=== PATIENT | male | born 1965 | race Caucasian/White ===

== ENCOUNTER 2017-01-16 10:30 | Emergency (ER) | payer MEDICARE, MEDICAID ==
[2017-01-16 12:01] LABS: Comments Flag Yes; Hematocrit 38 % (42-52); Hemoglobin 12.9 g/dl (14.0-18.0); Mean Corpuscular HGB Conc 34 g/dl (31-36); Mean Corpuscular Hemoglobin 31 pg (27-31); Mean Corpuscular Volume 91 fL (80-94); Mean Platelet Volume 7 um3 (7.4-10.4); Red Blood Count 4.19 10^6/ul (4.0-5.4); Red Cell Distribution Width 12 % (10.5-15); White Blood Count 25.2 10^3/ul (3.5-10.8)
[2017-01-16 12:02] LABS: Add Diff/Slide Review? Slide Review Added
[2017-01-16 12:16] LABS: Albumin 3.6 g/dL (3.2-5.2); Calcium 9.2 mg/dL (8.6-10.3); EGFR African American 175.9 (>60); EGFR Non-African American 136.8 (>60); Globulin 2.9 g/dL (2-4); Potassium 4.3 mmol/L (3.5-5.0); Total Bilirubin 0.6 mg/dL (0.2-1.0); Total Protein 6.5 g/dL (6.4-8.9)
--- NOTE | 2017-01-16 12:54 | RAD ---
INDICATION: Intracranial injury. History of shunt catheters . Congenital hydrocephalus COMPARISON: CT brain September 29, 2011 TECHNIQUE: Noncontrast axial source images were acquired from the skull base to the vertex. FINDINGS: Ventricles/sulci: The ventricles and cisterns are unchanged. 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 Left ventricular shunt catheters are unchanged. Brain parenchyma: There is no acute focal parenchymal finding, evidence of intracranial mass, or intracranial mass effect. Intracranial hemorrhage:None. Extra-axial spaces: There are no abnormal extra axial fluid collections or evidence of extra-axial mass. Calvarium: There is no calvarial fracture or other calvarial abnormality. Scalp: There is no evidence of scalp or extracalvarial soft tissue abnormality. Paranasal sinuses/mastoid: The paranasal sinuses and mastoid air cells are clear. Other: None. IMPRESSION: No acute intracranial findings. 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
[2017-01-16 13:22] LABS: Erythrocyte Sed Rate 60 mm/Hr (0-20)
[2017-01-16 14:42] LABS: Urine Bacteria 1+ (Absent); Urine Bilirubin Negative (Negative); Urine Glucose Negative (Negative); Urine Nitrite Positive (Negative)
[2017-01-16 15:55] VITALS: BP 102/66
[2017-01-16] MEDS ORDERED: Sulfamethox/Trimethoprim DS 800/160* TAB PO ONE ×2 (15:55)
--- NOTE | 2017-01-16 17:04 | ED ---
Neurological HPI - HPI Summary HPI Summary: Patient presents to the ED after falling, hitting his head and sustaining a fall and injury to the right side of the head. Patient lives in a assisted at [facility] and was getting out of the van on the way to work and sustained a fall which was thought to be from dizziness. The fall was witnessed by staff. Staff notes that the patient has difficulty with spacial recognition and is discombobulated at baseline, often reaching out for doors and missing the handles and missing objects, but today was much worse. Staff who is present at bedside, states he reached for a door and was much more "off than usual, and became unsteady on his feet, fell backwards striking his right side of the head. Denies LOC, confusion, N/V, memory loss. Notes to blurry vision in the right eye, but states this was present prior to the accident. Patient is a poor historian and per staff will "remember some things, but gets confused on others, specifically 'time'". PMHx includes hydrocephalus with double shunt placement as a child in 1980. He has had no issues with the shunts since placement. Neurosurgeon from [place]. Hx of seizures and is seen by Dr. Palmer and Dr. Campos. He is stable on Lamictal and Vimpat without missing any doses. Staff takes care of medication distribution. He also takes loperamide and maalox as needed for constipation and GERD symptoms. He has been otherwise healthy and denies SOB, chest pain, urinary symptoms, back pain, JEFFERSON, neck pain or stiffness or photophobia. There is no open breaks in the skin, open lesions or obvious signs of deformity of the head. Staff and mother are present at bedside. - History of Current Complaint Chief Complaint: EDHeadInjury Stated Complaint: FALL, HEADPAIN Time Seen by Provider: 01/16/17 10:37 Hx Obtained From: Patient Onset/Duration: Sudden Onset Onset Severity: Mild Current Severity: Mild Seizure Severity: Mild Pain Intensity: 0 Pain Scale Used: 0-10 Numeric Character: Dizzy, Visual Changes Syncope Context: Witnessed, Loss of Consciousness: No Alleviating: Rest, Lying Down Associated Signs and Symptoms: Positive: Unsteady Gait, Visual Changes TPA Considered: No Related Hx: Pseudoseizures - Allergy/Home Medications Allergies/Adverse Reactions: Allergies Allergy/AdvReac Type Severity Reaction Status Date / Time adhesive tape Allergy Intermediate redness, Uncoded 01/16/17 10:45 itching Home Medications: Home Medications Acetaminophen TAB* [Tylenol TAB*] 650 mg PO Q4H PRN 01/16/17 [History Confirmed 01/16/17] Al Hydrox/Mg Hydrox/Simet LIQ* [Maalox Plus*] 30 ml PO Q4H PRN 01/16/17 [ History Confirmed 01/16/17] Bacitracin OINTMENT* 1 applic TOPICAL BID PRN 01/16/17 [History Confirmed ] Cranberry (Vaccinium Macrocarp [Cranberry] 400 mg PO BID 01/16/17 [History Confirmed 01/16/17] Hydrocortisone (Rectal) [Proctozone-Hc] 2.5 % WA TID PRN 01/16/17 [History Confirmed 01/16/17] Hydrocortisone 1% CREAM* [Hytone Cream 1%*] 1 applic TOPICAL TID PRN 01/16/17 [ History Confirmed 01/16/17] Ibuprofen TAB* [Advil TAB*] 600 mg PO TID PRN 01/16/17 [History Confirmed ] Lacosamide TAB* [Vimpat TAB*] 200 mg PO BID MDD 200 mg 01/16/17 [History Confirmed 01/16/17] Loperamide HCl [Imodium A-D] 20 ml PO DAILY PRN 01/16/17 [History Confirmed 12/25] Miconazole TOPICAL CREAM 2%* [Monistat 2%*] 1 applic TOPICAL DAILY 01/16/17 [ History Confirmed 01/16/17] Mineral Oil Light (Topical) [Mineral Oil Light] 3 drop BOTH EARS DAILY PRN 01/16 [History Confirmed 01/16/17] Ped Multivitamins W/Fl & Iron [Hdxn-LO-Kkpj/Iron] 1 chw PO DAILY 01/16/17 [ History Confirmed 01/16/17] Phenylephrine HCl (Oral) [Nasal Decongestant] 10 mg PO Q4HR PRN 01/16/17 [ History Confirmed 01/16/17] guaiFENesin LIQ* [Robitussin*] 10 ml PO Q6HR PRN 01/16/17 [History Confirmed 12/25] PMH/Surg Hx/FS Hx/Imm Hx Previously Healthy: Yes - shunt placement Endocrine/Hematology History: Denies: Hx Anticoagulant Therapy, Hx Blood Disorders, Hx Diabetes, Hx Thyroid Disease Cardiovascular History: Denies: Hx Hypertension Respiratory History: Reports: Other Respiratory Problems/Disorders - SHUNT Denies: Hx Asthma, Hx Chronic Obstructive Pulmonary Disease (COPD) GI History: Reports: Other GI Disorders - SHUNT Denies: Hx Ulcer History: Reports: Other Problems/Disorders - Neurogenic Bladder Musculoskeletal History: Reports: Hx Osteoporosis, Hx Scoliosis Denies: Hx Arthritis, Hx Back Problems, Hx Bursitis Sensory History: Reports: Hx Contacts or Glasses Opthamlomology History: Reports: Hx Contacts or Glasses Neurological History: Reports: Hx Developmental Delay, Hx Seizures Comment Only: Other Neuro Impairments/Disorders - SHUNTS X2, Hydrocephalis Psychiatric History: Reports: Hx Anxiety - Surgical History Surgery Procedure, Year, and Place: BILATERAL HIP REPLACEMENTS Hx Anesthesia Reactions: No - Immunization History Hx Pertussis Vaccination: No Immunizations Up to Date: Unable to Obtain/Confirm Infectious Disease History: No Infectious Disease History: Denies: Hx Hepatitis, Hx Human Immunodeficiency Virus (HIV), Traveled Outside the [place] in Last 30 Days - Family History Known Family History: Positive: Cardiac Disease - father - Social History Occupation: Employed Part-time Lives: Senior Living Alcohol Use: None Hx Substance Use: Yes Substance Use Type: Reports: Prescribed Substance Use Comment - Amount & Last Used: seizure meds Hx Tobacco Use: No Smoking Status (MU): Never Smoked Tobacco Review of Systems Constitutional: Negative Negative: Fever, Chills, Fatigue Positive: Blurred Vision - right eye only Cardiovascular: Negative Respiratory: Negative Negative: Abdominal Pain, Vomiting, Diarrhea Positive: no symptoms reported, see HPI Musculoskeletal: Negative Positive: Headache - none currently, Weakness Psychological: Normal All Other Systems Reviewed And Are Negative: Yes Physical Exam Triage Information Reviewed: Yes Vital Signs On Initial Exam: Initial Vitals Temp Pulse Resp BP Pulse Ox 99.3 F 100 18 139/80 98 01/16/17 10:31 01/16/17 10:31 01/16/17 10:31 01/16/17 10:31 01/16/17 10:31 Vital Signs Reviewed: Yes Appearance: Positive: Well-Appearing, Well-Nourished Skin: Positive: Warm, Skin Color Reflects Adequate Perfusion Head/Face: Positive: Normal Head/Face Inspection Eyes: Positive: Conjunctiva Clear Neck: Positive: Supple, No Lymphadenopathy Respiratory/Lung Sounds: Positive: Clear to Auscultation, Breath Sounds Present Cardiovascular: Positive: Normal, RRR, Pulses are Symmetrical in both Upper and Lower Extremities Musculoskeletal: Positive: Other - weakness at baseline Neurological: Positive: Sensory/Motor Intact, Alert, Oriented to Person Place, Time, Reflexes Intact, Speech Normal Psychiatric: Positive: Normal AVPU Assessment: Alert - Rama Coma Scale Best Eye Response: 4 - Spontaneous Best Motor Response: 6 - Obeys Commands Best Verbal Response: 5 - Oriented Coma Scale Total: 15 Diagnostics - Vital Signs Vital Signs Temp Pulse Resp BP Pulse Ox 01/16/17 16:29 99.0 F 88 18 102/66 01/16/17 15:30 88 102/66 96 01/16/17 15:00 91 116/70 97 01/16/17 14:30 94 118/67 96 01/16/17 14:00 90 120/71 97 01/16/17 13:30 90 114/69 97 01/16/17 13:00 92 110/75 99 01/16/17 12:57 92 120/77 98 01/16/17 12:00 89 115/76 97 01/16/17 11:30 98 131/89 99 01/16/17 11:00 90 118/79 99 01/16/17 10:43 97 99 01/16/17 10:42 99.3 F 96 16 131/88 100 01/16/17 10:41 131/88 01/16/17 10:31 99.3 F 100 18 139/80 98 - Laboratory Lab Results: Lab Results 01/16/17 01/16/17 01/16/17 Range/Units 11:50 11:50 11:50 WBC 25.2 H (3.5-10.8) 10^3/ul RBC 4.19 (4.0-5.4) 10^6/ul Hgb 12.9 L (14.0-18.0) g/dl Hct 38 L (42-52) % MCV 91 (80-94) fL MCH 31 (27-31) pg MCHC 34 (31-36) g/dl RDW 12 (10.5-15) % Plt Count 184 (150-450) 10^3/ul MPV 7 L (7.4-10.4) um3 Neut % (Auto) 84.4 H (38-83) % Lymph % (Auto) 5.8 L (25-47) % [place] % (Auto) 9.0 (1-9) % Eos % (Auto) 0.4 (0-6) % Baso % (Auto) 0.4 (0-2) % Absolute Neuts (auto) 21.2 H (1.5-7.7) 10^3/ul Absolute Lymphs (auto) 1.5 (1.0-4.8) 10^3/ul Absolute Monos (auto) 2.3 H (0-0.8) 10^3/ul Absolute Eos (auto) 0.1 (0-0.6) 10^3/ul Absolute Basos (auto) 0.1 (0-0.2) 10^3/ul Absolute Nucleated RBC 0 10^3/ul Nucleated RBC % 0 ESR 60 H (0-20) mm/Hr D-Dimer, Quantitative 243 H (Less Than 230) ng/mL Sodium 132 L (133-145) mmol/L Potassium 4.3 (3.5-5.0) mmol/L Chloride 98 L (101-111) mmol/L Carbon Dioxide 30 (22-32) mmol/L Anion Gap 4 (2-11) mmol/L BUN 13 (6-24) mg/dL Creatinine 0.62 L (0.67-1.17) mg/dL Est GFR ( Amer) 175.9 (>60) Est GFR (Non-Af Amer) 136.8 (>60) BUN/Creatinine Ratio 21.0 H (8-20) Glucose 104 H (70-100) mg/dL Calcium 9.2 (8.6-10.3) mg/dL Total Bilirubin 0.60 (0.2-1.0) mg/dL AST 22 (13-39) U/L ALT 34 (7-52) U/L Alkaline Phosphatase 88 (34-104) U/L Total Protein 6.5 (6.4-8.9) g/dL Albumin 3.6 (3.2-5.2) g/dL Globulin 2.9 (2-4) g/dL Albumin/Globulin Ratio 1.2 (1-3) Urine Color Urine Appearance Urine pH (5-9) Ur Specific [place] (1.010-1.030) Urine Protein (Negative) Urine Ketones (Negative) Urine Blood (Negative) Urine Nitrate (Negative) Urine Bilirubin (Negative) Urine Urobilinogen (Negative) Ur Leukocyte Esterase (Negative) Urine WBC (Auto) (Absent) Urine RBC (Auto) (Absent) Ur Squamous Epith Cells (Absent) Urine Bacteria (Absent) Urine Glucose (Negative) Urine Ascorbic Acid (Negative) 01/16/17 Range/Units 14:17 WBC (3.5-10.8) 10^3/ul RBC (4.0-5.4) 10^6/ul Hgb (14.0-18.0) g/dl Hct (42-52) % MCV (80-94) fL MCH (27-31) pg MCHC (31-36) g/dl RDW (10.5-15) % Plt Count (150-450) 10^3/ul MPV (7.4-10.4) um3 Neut % (Auto) (38-83) % Lymph % (Auto) (25-47) % [place] % (Auto) (1-9) % Eos % (Auto) (0-6) % Baso % (Auto) (0-2) % Absolute Neuts (auto) (1.5-7.7) 10^3/ul Absolute Lymphs (auto) (1.0-4.8) 10^3/ul Absolute Monos (auto) (0-0.8) 10^3/ul Absolute Eos (auto) (0-0.6) 10^3/ul Absolute Basos (auto) (0-0.2) 10^3/ul Absolute Nucleated RBC 10^3/ul Nucleated RBC % ESR (0-20) mm/Hr D-Dimer, Quantitative (Less Than 230) ng/mL Sodium (133-145) mmol/L Potassium (3.5-5.0) mmol/L Chloride (101-111) mmol/L Carbon Dioxide (22-32) mmol/L Anion Gap (2-11) mmol/L BUN (6-24) mg/dL Creatinine (0.67-1.17) mg/dL Est GFR ( Amer) (>60) Est GFR (Non-Af Amer) (>60) BUN/Creatinine Ratio (8-20) Glucose (70-100) mg/dL Calcium (8.6-10.3) mg/dL Total Bilirubin (0.2-1.0) mg/dL AST (13-39) U/L ALT (7-52) U/L Alkaline Phosphatase (34-104) U/L Total Protein (6.4-8.9) g/dL Albumin (3.2-5.2) g/dL Globulin (2-4) g/dL Albumin/Globulin Ratio (1-3) Urine Color Ashley Urine Appearance Cloudy Urine pH 6.0 (5-9) Ur Specific [place] 1.021 (1.010-1.030) Urine Protein 1+(30 mg/dl) H (Negative) Urine Ketones Trace H (Negative) Urine Blood 2+ H (Negative) Urine Nitrate Positive H (Negative) Urine Bilirubin Negative (Negative) Urine Urobilinogen Negative (Negative) Ur Leukocyte Esterase 3+ H (Negative) Urine WBC (Auto) 3+(>20/hpf) H (Absent) Urine RBC (Auto) 3+(>10/hpf) H (Absent) Ur Squamous Epith Cells Present H (Absent) Urine Bacteria 1+ H (Absent) Urine Glucose Negative (Negative) Urine Ascorbic Acid * H (Negative) Result Diagrams: 01/16/17 11:50 01/16/17 11:50 Lab Statement: Any lab studies that have been ordered have been reviewed, and results considered in the medical decision making process. Course/Dx - Course Course Of Treatment: UA shows +3 leuks and WBC. Denies any urinary symptoms. VS stable at 99.0; 18 HR; 102/66. Denies taking any ibuprofen or tylenol. He is not on immunoboosting medications including steroids and has not been using his loperamide recently which would account for a higher level of lamictal and vimpat which could cause an elevated WBC. Likely, WBC is d/t UTI. He does not feel symptoms, but has a history of such and all times were found incidentally. Mother and staff and patient all made aware of results and Dr. Wiley and I' s discussion. We will dispense 1 bactrim here in the ED for UTI, and 1 tab for tomorrow morning d/t the pharmacy not delivering until tmw afternoon. Complete neuro exam completed and WNL. Normal head/face inspection with no cephalohematoma. There are bilateral scars post-auricular from shunt placement and one occipitally. No open lesions identified. Reflexes intact. Visual acuity intact and at baseline. No obvious confusion or memory loss per patient and family, but he is often confused at baseline. Patient oriented to person, place and date. No obvious deformity or signs of trauma. Finger to nose normal for patient, unable to obtain heel to toe d/t leg braces and weakness, which is also normal for patient. Speech normal, facial symmetry, normal gait. Patient denies LOC. ROM, strength, reflexes in upper and lower extremity intact, sensation intact. GCS score >15 at 2h post injury. No suspected open or depressed skull fx, no sign of basal skull fx, no hemotympanum, raccoon eyes, Battles sign, CSF kate-/rhinorrhea, no emesis after injury. CT brain obtained d /t high risk with shunts. WBC elevated at 25,000 with left shift. Patient feels well other than slight dizziness x 2 weeks. IMPRESSION: No acute intracranial findings. 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 Spoke with Dr. Wiley who agrees to come and evaluate patient. Discussed differentials including shunt infection, UTI, viral syndrome , new onset dizziness or seizure activity. Discussed with Dr. Oliveira in the ED who agrees to defer to Dr. Wiley and to assess for possible shunt infection. Patient is instructed to follow up with Dr. Palmer next week. Vimpat and Lamictal levels sent out and will await final. Urine culture will be sent and will await sensitivities. Patient is OK for discharge. Referrals are sent. - Differential Dx Differential Diagnoses Neuro: Positive: Concussion, Drug Toxicity, Encephalitis , Other - UTI, shunt infection, other infection, high WBC - Diagnoses Provider Diagnoses: Head trauma, UTI (urinary tract infection) Discharge - Discharge Plan Condition: Stable Disposition: HOME Prescriptions: Sulfamethox/Trimethoprim DS* [Bactrim DS 800/160 TAB*] 1 tab PO BID #8 tab MDD 2 Patient Education Materials: Urinary Tract Infection in Men (ED), Head Injury ( ED) Forms: *Gen. Provider Communication Referrals: Lynsey Palmer MD [Medical Doctor] - 1 Week (High WBC, CT bran for head injury) Neftaly Wagner MD [Primary Care Provider] - 1 Week (Follow up for repeat blood work / UA) Additional Instructions: Dx. Urinary Tract Infection Drink plenty of fluids. Supplement with cranberry or hunter juice. You may also take an over the counter cranberry supplement. If you have any questions about this, you may ask your pharmacist. If your symptoms have not improved in 1-2 days, if you develop fever, sweats or chills, please go to your emergency room, or call your PCP. Antibiotics were prescribed to you. Please take as directed. Supplement with over the counter probiotics on the opposite schedule of your antibiotic to prevent secondary infections. Do not take together as they may counteract each other. Bactrim has been prescribed to you Take 1 tab twice daily until gone (morning and evening) This can be added to your morning and night time medications regimen Follow up with Dr. Palmer next week
--- NOTE | 2017-01-16 20:54 | CONS ---
CC: Dr. 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 He walks chronically with a walker and is chronically clumsy. However, he was reaching for a button on the wall today and was more uncoordinated than usual. He also fell today. He will occasionally fall, but this in combination of an odd reach for him plus a feeling of being dizzy and it is hard to get a history from him whether this is really lightheadedness or room spinning, but in any event, this was a change. They brought him in. He has been in good general health and generally without any fever, cough, or bowel or bladder complaints. He has occasional seizures, but his control has been good for him recently on his Lamictal and Vimpat. There has been no dosage change. He is on a bowel regimen, but that has not changed recently and no change in bowel. Of note, he has a longstanding shunt in, not replaced since 1980, but he has had shunt infections in the past prior to that. His neurosurgeon, who he has not seen for a long time, has been up in [place]. He has had no recent seizures. MEDICATIONS: At home, include: 1. Lamotrigine 150 in the morning and 200 at night. 2. Vimpat 200 b.i.d. 3. He is on Colace 100 mg daily. 4. He is also on Imodium, but he has not needed that recently. 5. He is on a decongestant p.r.n., but has not needed. 6. He takes calcium carbonate 1 tab b.i.d. 7. Cranberry extract 400 mg b.i.d. ALLERGIES: He is allergic to ADHESIVE TAPE. FAMILY HISTORY: Father who has had cardiac disease, but rest of the family history is noncontributory. REVIEW OF SYSTEMS: Negative in all 14 spheres, other than as above. He has had surgeries including bilateral hip replacements and his TRACK SUPERVISOR shunt, and he has had his global delay. He has a history of osteoporosis and scoliosis and has a history of neurogenic bladder. PHYSICAL EXAM: Temperature 99.3, pulse 90, respirations 16, blood pressure 118/ 67. He was alert and oriented. He was a poor historian and had some significant dysarthria; his mother and the care worker who were present stated this is typical for him. Cranial nerves II through XII, head marked hydrocephalus is unchanged. Had dysconjugate gaze, has right exotropia, which is unchanged for him. Pupils were 2+ and equal. Facies are symmetric. He had bilateral braces and some spasticity. He was clumsy in both hands. There is mild dysmetria, but this apparently is unchanged for him. Reflexes were 2 and equal in the arms, 1 in the legs. Chest: Clear. Cardiovascular: Regular rate and rhythm. Abdomen: Soft with positive bowel sounds. DIAGNOSTIC STUDIES/LAB DATA: Reviewed his CT scan, which showed significant Dandy- Walker with TRACK SUPERVISOR and it looks like posterior shunt as well. This was unchanged from his prior scan dating back to 2011. I compared both films and I agree with the radiologist. He had of note, a white count of 25.2, hematocrit of 38, platelets 184. D- dimer of 243. CMP has a sodium of 132, creatinine 0.6, glucose 104. Otherwise , CMP was normal. Vimpat levels and lamotrigine levels are being sent after I spoke to the ER doctor. His UA shows 1+ bacteria with 3+ white count, 3+ red count, and 3+ leuk esterase. ASSESSMENT AND PLAN: The most likely thing is that Porter has a urinary tract infection with elevated white count and with plus leuk esterase and urine WBC and it is possible that this infection has exacerbated some of his underlying symptoms. It is possible that there has been some fluctuation for unclear reasons of his anticonvulsant levels and that is being checked. Much less likely this could be a shunt infection. So, if he does not have a urinary tract infection and his levels are unchanged next week, the mother will touch base with Dr. Palmer to make sure that he does not need any further evaluation for something like shunt infection, although I think that this is unlikely. We will discuss the UA with the nurse practitioner here that this might be a urinary tract infection especially given the neurogenic bladder. Thank you for sharing his case. [id number]/[facility] #: [id number] BERTA
--- NOTE | 2017-01-19 08:53 | PN ---
Progress Note - Progress Note Date of Service: 01/16/17 Note: Diagnosed with UTI and placed on bactrim. Sensitivity results show e. coli is susceptible to bactrim. no further action necessary at this time.
[2017-01-20 11:32] LABS: Lacosamide 12.2 mcg/mL (1.0 - 10.0)
== END 2017-01-16 16:31 | disposition home or self-care (01) ==
LOC: ED 10:30
DX: S09.90XA Unspecified injury of head, initial encounter (principal); R51 Headache; H53.8 Other visual disturbances; N39.0 Urinary tract infection, site not specified; W19.XXXA Unspecified fall, initial encounter; Y93.9 Activity, unspecified; Y92.9 Unspecified place or not applicable
CPT/HCPCS: 36415; 70450; 80053; 80175; 80299; 81003; 81015; 85025; 85379; 85652; 87077; 87086; 87186; 99284; A9270-GY

== ENCOUNTER 2017-12-15 16:05 | Emergency (ER) | payer MEDICARE, MEDICAID ==
--- OUTSIDE RECORDS SUMMARY | 2017-12-15 16:14 | XMS REPORT ---
:1965 External Reference #:[id number] Author Organization Count Includes [facility] Address [address] [place] [id number] Phone [phone] Care Team Providers Name Role Phone Neftaly Wagner M.D. 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 Primary Care Physician Unavailable Payers Type Date Identification Numbers Payment Provider Subscriber Medicare Primary Policy Number: [id number] Medicare - Bswny Umd Kulwant Gallagher PayID: [id number] [address] [place] [address] [facility] Part B Policy Number: [id number] Medicaid After Private Kulwant Gallagher Group Name: 1 2 Type ins co. code [address] PayID: [id number] [place] [address] Problems Description No Information Family History Date Family Member(s) Problem(s) Comments Father Hypertension Father GERD Mother Osteoarthritis Mother Thyroid Disease Mother Hypercholesterolemia Mother Depression Siblings .None Paternal Grandfather CAD Paternal Grandmother Hypertension Paternal Grandmother Stroke Maternal Grandfather CAD Maternal Grandfather Psoriasis Maternal Grandmother CAD Maternal Grandmother Hypertension Maternal Grandmother Stroke Social History Type Date Description Comments Lives With Lives at [employer]. Works at [employer]. Cigarette Use Never Smoked Cigarettes Exercise Type/Frequency Exercises regularly, using exercises at home, and PT rowing machine 2x per week. sessions 2x/wk. Regular PT Allergies, Adverse Reactions, Alerts Date Description Reaction Status Severity Comments 02/06/2005 Adhesives active on tape. Medications Medication Date Status Form Strength Qnty SIG Indications Ordering Provider Bactrim DS 12/01/ Active Tablets 800-160mg 10tabs take 1 N39.0 Jessica 2018 tablet by Magda mouth every , 12 hours for 5 days Tab-A-Danielle/Iro 10/14/ Active Tablets 30tabs Take 1 Neftaly boyer 2018 Tablet By Kristy Mouth Every M.D. Day (Supplement) Shoe Lift On 02/09/ Active Q03.9 Neftaly Left Shoe 2017 Yadira Wagner Shoe 02/09/ Active Q03.9 Neftaly Modification 2017 Kristy, Left Genie MMarcos Colace 100MG 07/29/ Active 30unit Take One Neftaly Cap 2016 s Capsule By Kristy Mouth Every M.D. Day (Hemorrhoids ) Calcium 600+D 10/11/ Active Tablets 600-400mg- 180tab 1 po bid 733.09 Neftaly 2014 Unit s Yadira Wagner Cranberry 01/29/ Active Capsule 400mg 60caps Take 1 N31.9 Neftaly 2005 400 MG Capsule Kristy, (400MG) By M.DJewell Mouth 2 Times A Day (Supplement) Lamictal / Active Tablets 100mg 1 1/2 po Beth, 0000 qam, 2 po MD Eliezer qhs Vimpat 00/ Active Tablets 200mg 1 po bid [place], 0000 MD Eliezer Vimpat / Active Tablets 50mg 1 po qhs Unknown 0000 Multivitamin / Active Unknown With Iron 0000 Multivitamin 08/13/ Hx 90unit One by mouth Neftaly With Iron 2018 - s daily. Kristy, 08/27/ MJewellDJewell 2018 Bactrim DS 07/10/ Hx Tablets 800-160mg 20tabs take 1 Jessica 2017 - tablet by Magda 08/27/ mouth twice MD 2018 daily for 10 days Pyridium 07/10/ Hx Tablets 200mg 6tabs 1 tablet Jessica 2017 - three times Magda 08/27/ a day with MD 2018 food x 2 days Shoe 02/09/ Hx Q03.9 Neftaly Modification 2016 - Kristy, To Right Shoe 02/09/ M.DJewell 2017 Shoe Lift On 06/02/ Hx Q03.9 Neftaly Left Shoe 2016 - Kristy 07/28/ M.D. 2017 Gait 04/15/ Hx for Q03.9 Neftaly Evaluation 2015 - appropriate Wagner, 07/28/ assistive M.DJewell 2017 devices R26.89 Proctosol HC 11/02/2015 - Hx Cream 2.5% 30units Apply To Affected Neftaly 08/27/2017 Areas 3 Times A Wagner, Day as Needed M.D. After 15 Minutes Sitzbath (Hemorrhoids) Hydrocortisone-A 11/02/2015 - Hx Cream 1% 28units Apply Small Neftaly monisha 08/27/2017 Amount To Wagner, Buttocks 3 Times M.D. A Day as Needed (Anti-Inflammator y) Shoe 07/26/2015 - Hx as directed Q03 Neftaly Modification To 07/28/2016 .9 Kristy Right Sholucho May Shoe Lift On 03/15/2015 - Hx Q03 Neftaly Left Shoe 07/26/2015 .9 Yadira Wagner Colace 09/26/2014 - Hx Capsules 100mg 30caps take one capsule Neftaly 07/30/2015 by mouth every Wagenr, day (hemorrhoids) M.D. Afo 05/18/2014 - Hx repair or replace Q03 Neftaly 07/28/2016 as needed .9 Yadira Wagner R26.89 Calcium 04/05/2014 Hx Tablets [id number] 60tabs Take One Neftaly Carbonate-Vitamin - Tablet By Kristy, D 08/27/2017 Mouth 2 Times M.D. A Day (Supplement) Sulfacetamide 02/09/2014 Hx Solution 10% 15ml 2 drops 37 Shawnti Sodium - right eye 3. R. 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 A Day as Needed After 15 Minutes Sitzbath (Hemorrhoids) Calcium/Vitamin D 09/06/2013 Hx Tablets [id number] 60tabs take one 73 Neftaly - tablet by Naty. Kristy, 10/11/2014 mouth 2 times 09 M.D. a day (supplement) To Whom It May 07/07/2013 Hx Discontinue Neftaly Concern - lidoderm Kristy, 07/12/2013 patch M.D. Hydrocortisone-Ruy 05/06/2013 Hx Cream 1% 28units Apply Small Neftaly e - Amount To Wagner, 12/20/2014 Buttocks 3 M.D. Times A Day as Needed (Antifungal) Walker Adjustment 03/10/2013 Hx 74 Neftaly With Physical - 2. Kristy, Therapist 06/20/2013 3 M.D. Phenylephrine 10MG 02/22/2013 Hx Tablet 30tabs Take One Neftaly - Tablet By Kristy, 08/27/2017 Mouth Every 4 M.D. Hours as Needed For Congestion Polyvitamin/Iron 02/22/2013 Hx Chewtabs 30units chew 1 tablet Neftaly - by mouth Kristy, 08/27/2017 every day M.D. (supplement) Colace 100MG Cap 02/08/2013 Hx 30units take one Neftaly - capsule by Kristy, 09/26/2014 mouth every M.D. day (hemorrhoids) Calcium 600 + D 09/08/2012 Hx Tablets [id number] 60tabs 1 po bid 73 Neftaly - 3. Kristy, 09/06/2013 09 M.D. Multivitamins With 09/01/2012 Hx Tablets 30tabs 1 Chew tab po Neftaly Iron - qd Kristy, 07/28/2016 M.D. Calcium + D 08/17/2012 Hx Tablets [id number] 90tabs 1 po qd 73 Neftaly - 3. Kristy, 09/08/2012 09 M.D. Lidoderm 06/01/2012 Hx Patches 5% 30units apply to Neftaly - affected area Wagner, 06/20/2013 for 12hrs a M.D. day as needed Phenylephrine HCL 03/25/2012 Hx Tablets 10mg 30tabs 1 po q 4 hrs Neftaly - prn Kristy, 06/20/2013 M.D. Divalproex Sodium 12/11/2011 Hx Tablets 250mg 2 po qam, 3 Unknown ER - ER 24HR qhs 09/14/2012 Sole Elevation On 10/14/2011 Hx 1Pair elevate my Neftaly Pair Of New Shoes - sole. Kristy, 10/19/2011 M.D. Acetaminophen 08/12/2011 Hx Tablets 325mg 120tabs one po q 4 hr Neftaly - prn for pain Kristy, 08/27/2017 or fever >101 M.D. Rosa-Lanta 08/12/2011 Hx Suspensio [id number] 473ml 30 cc q 4 hr Neftaly Packer for minor Wagner, 08/27/2017 stomachlucho May upset Lamictal 03/25/2011 Hx Tablets 200mg 1 qhs Beth - , 03/11/2012 MD Eliezer Ibuprofen 05/16/2010 Hx Tablets 600mg 30tabs 1 tid prn 92 Shawnti - pain, take 0 R. 06/20/2013 with food Storm, SOFTWARE [employer] EXECUTIVE-C Ergocalciferol 04/21/2010 Hx Tablets 50,000Units 12tabs 1 po qweek x Neftaly Tablets - 12 weeks Kristy, 08/05/2010 Yadira Shoe Lift On Left 03/08/2010 Hx 1units 73 Neftaly Shoe - 3. Kristy, 06/20/2013 09 Yadira Trileptal 02/22/2009 Hx Tablets 300mg 3 bid [place] - , 03/11/2012 MD Eliezer Colace 02/22/2008 Hx Capsules 100mg 30caps 1 PO qd Neftaly Wagner, 02/08/2013 Yadira Physical Therapy 02/22/2008 Hx for gait and Neftaly - balance Kristy, 05/22/2008 MMarcos Calcium 600+D 11/25/2007 Hx Tablets 60tabs 1 po bid 73 Neftaly - 3. Kristy, 08/17/2012 09 Yadira Calcium Carbonate 11/23/2007 Hx Tablets 600mg/200mg 60tabs 1 po bid 73 Neftaly With Vitamin D - 3. Kristy, 11/25/2007 09 MMarcos Salicylic Acid 10/28/2007 Hx 40% 30units apply to jacki Higginbotham Plasters - qd. Kristy, 03/24/2011 Yadira Rolator Walker 10/28/2007 Hx 1units Wheeled Neftaly Stallings With Kristy, 12/16/2010 Hand Brakes ChagoDJewell And Seat Calcium 600 + D 07/27/2007 Hx Tablets 60tabs 1 po bid 73 Neftaly - 3. Kristy, 11/23/2007 09 Yadira Audiologic 06/08/2007 Hx every 2 years Neftaly Evaluation - as needed Kristy, 12/16/2010 Yadira Proctocream-HC 05/13/2007 Hx Cream 2.5% 1Tube apply to 45 Neftaly - affected area 5. Wagner, 12/20/2014 tid and prn 3 M.D. Multivitamin/Iron 03/12/2007 Hx Chewtabs 30units 1 qd Neftaly - Kristy, 09/01/2012 M.D. 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 Yadira Afo Hepatitis B 10/14/2006 Hx Injection 10mcg/ML 1 ml im x 1 Neftaly Vaccine Adult - Wagner, 2006 M.Sincere Physician Orders 06/10/2006 Hx replace Neftaly - straps on Wagner, 07/10/2006 braces Yadira Medical Equipment 12/12/2005 Hx posterior Neftaly - control Wagner, 12/17/2005 walker with Yadira folding seat and swivel, heavy duty wheels Physical Therapy 11/25/2005 Hx gait Neftaly - assrashid and Wagner, 02/10/2006 strengthening M.Sincere . Physical Therapy 11/17/2005 Hx PT russell Higginbotham - evaluation Wagner, 11/22/2005 and treatment M.D. Fosamax 10/28/2005 Hx Tablets 70mg 12tabs one q week on 73 Neftaly - empty stomach 3. Wagner, 06/21/2013 do not lie 09 M.D. down for at least 1/2 hr after taking Miconazole Nitrate 10/24/2005 Hx Cream 2% 45G apply to Neftaly - affected area Wagner, 08/27/2017 bid prn M.D. Levaquin 09/14/2005 Hx Tablets 250mg 11tabs two po first Mansi - day then 1 po e P. 02/10/2006 qd x 9 days Blegen, MJewellDJewell Zithromax 08/03/2005 Hx Tablets 6tabs 2 on day one, Neftaly - then one qd Wagner, 11/01/2005 x4 days M.D. Cephalexin HCL 07/14/2005 Hx Tablets 500mg 28tabs one tab po Graham - q6h x 7 days J. 07/22/2005 Yadira Schulz [facility] [employer] 05/24/2005 Hx 1units Neftaly Wagner, 05/29/2005 M.D. Shoe Lift 01/11/2005 Hx 1units left foot. Neftaly Wagner, 11/27/2007 M.D. Loratadine 10/01/2004 Hx Tablets 10mg 30tabs 1 po qd Neftaly Wagner, 02/22/2008 M.D. Sports Cream 03/01/2004 Hx 1units generic for Neftaly - 'raymond-damon' Kristy, 04/10/2004 M.D. apply to back prn Ibuprofen 02/12/2004 Hx Tablets 600mg 120tabs one po tid to Jaimee - qid prn pain K.W. 05/16/2010 Antoinette boyer M.D. Physical Therapy 02/06/2004 Hx evaluate and 72 Neftaly - treat low 4. Kristy, 03/07/2004 back pain 2 M.D. Excuse From Work 02/06/2004 Hx out of work 72 Neftaly - until 4. Kristy, 03/07/2004 02/15/04. 2 M.D. Note 06/02/2003 Hx 1units unilateral Neftaly caicedo - Kristy, 06/03/2003 left M.D. Tegretol Hx 200mg three tabs Unknown - qam 01/08/2006 two tabs at lunch three tabs qpm Actonel Hx 35mg 4units take one Neftaly - tablet weekly Wagner, 10/28/2005 M.D. Calcium With Vit.D Hx Tablets 600mg 60tabs one bid 73 Neftaly - 3. Kristy, 07/27/2007 09 M.D. Multi-Vit Hx Tablets 30tabs one po qd Trinity - A. 03/12/2007 Pearl CamposPJewellC Jewell Lamictal Hx Tablets 125mg at hs Unknown - 02/22/2008 Depakote ER Hx Tablets 500mg 60tabs 1 QHS Unknown - ER 24HR 02/22/2009 Hydrocodone/Acetam Hx Tablets 5-325mg 30tabs 1 po q4hrs Neftaly alicia - dinoran pain Kristy, 06/20/2013 Yadira Immunizations CPT Code Status Date Vaccine Lot # [id number] Given 07/29/2016 Tdap (Adacel) [id number] Given 03/06/2016 Influenza Virus Vaccine, Quadrivalent, 3 Yr > Quad, Preserv Free 85575 Given 02/08/2015 Influenza Virus Vaccine, Quadrivalent, 3 Yr > Quad, Preserv Free 39739 Given 01/31/2014 Influenza Virus Vaccine, Quadrivalent, 3 Yr > Quad, Preserv Free 48946 Given 02/19/2012 Influenza Vaccine-Preservative Free 3 Yrs And Above 71885 Given 02/06/2011 Influenza Vaccine-Preservative Free 3 Yrs And Above 57246 Given 02/08/2010 Influenza Vaccine-Preservative Free 3 Yrs And Above 27440 Given 02/10/2006 Tdap (Adacel) [id number] 54758 Given 02/10/2006 Influenza Virus Vaccine, 3 Yrs And Above [id number] 54953 Given 03/25/2005 Influenza Virus Vaccine, 3 Yrs And Above 48654 Given 11/04/1995 Tetanus Vital Signs Date Vital Result Comment 12/01/2017 Weight 167.00 lb Weight in kg's 75.751 BP Systolic 112 mmHg BP Diastolic 78 mmHg Heart Rate 72 /min Body Temperature 97.0 F Respiratory Rate 18 /min 08/27/2017 Weight 167.00 lb Weight in kg's 75.751 BP Systolic 126 mmHg BP Diastolic 80 mmHg Heart Rate 68 /min Body Temperature 98.2 F Respiratory Rate 18 /min Height 67 inches 5'7" BMI (Body Mass Index) 26.2 kg/m2 O2 % BldC Oximetry 96 % 07/10/2017 Weight 172.00 lb Weight in kg's 78.019 BP Systolic 128 mmHg BP Diastolic 74 mmHg Heart Rate 80 /min Body Temperature 98.7 F Respiratory Rate 16 /min O2 % BldC Oximetry 98 % 01/28/2017 Weight 167.00 lb Weight in kg's 75.751 BP Systolic 112 mmHg BP Diastolic 68 mmHg Heart Rate 84 /min Body Temperature 97.7 F Respiratory Rate 16 /min 07/29/2016 Weight 166.00 lb Weight in kg's 75.298 BP Systolic 112 mmHg BP Diastolic 82 mmHg Heart Rate 91 /min Body Temperature 96.4 F Respiratory Rate 16 /min Height 67.5 inches 5'7.50" BMI (Body Mass Index) 25.6 kg/m2 O2 % BldC Oximetry 98 % 06/20/2016 Weight 167.00 lb Weight in kg's 75.751 BP Systolic 123 mmHg BP Diastolic 70 mmHg Heart Rate 72 /min 04/15/2016 BP Systolic 104 mmHg BP Diastolic 82 mmHg Heart Rate 66 /min Body Temperature 95.8 F Respiratory Rate 16 /min O2 % BldC Oximetry 99 % 04/01/2016 Weight 164.56 lb Weight in kg's 74.646 BP Systolic 122 mmHg BP Diastolic 76 mmHg Heart Rate 80 /min Body Temperature 98.9 F Respiratory Rate 18 /min 01/02/2016 Weight 165.00 lb Weight in kg's 74.844 BP Systolic 100 mmHg BP Diastolic 72 mmHg Heart Rate 68 /min Body Temperature 98.6 F Respiratory Rate 20 /min 06/27/2015 Weight 163.00 lb Weight in kg's 73.937 BP Systolic 96 mmHg BP Diastolic 61 mmHg Heart Rate 84 /min Height 67 inches 5'7" BMI (Body Mass Index) 25.5 kg/m2 12/21/2014 Weight 165.00 lb Weight in kg's 74.844 BP Systolic 120 mmHg BP Diastolic 70 mmHg Heart Rate 72 /min 07/17/2014 Weight 167.00 lb Weight in kg's 75.751 BP Systolic 130 mmHg BP Diastolic 68 mmHg Heart Rate 74 /min Body Temperature 97.0 F 06/20/2014 Weight 165.00 lb Weight in kg's 74.844 BP Systolic 90 mmHg BP Diastolic 70 mmHg Heart Rate 75 /min 05/24/2014 Weight 167.00 lb Weight in kg's 75.751 BP Systolic 114 mmHg BP Diastolic 70 mmHg Heart Rate 76 /min Body Temperature 97.7 F 02/09/2014 Weight 166.00 lb Weight in kg's 75.298 BP Systolic 114 mmHg BP Diastolic 70 mmHg Heart Rate 84 /min 01/10/2014 Weight 166.00 lb Weight in kg's 75.298 BP Systolic 104 mmHg BP Diastolic 72 mmHg Heart Rate 84 /min 06/23/2013 Weight 163.00 lb Weight in kg's 73.937 BP Systolic 116 mmHg BP Diastolic 70 mmHg Heart Rate 72 /min Body Temperature 97.5 F 03/11/2013 Weight 160.00 lb Weight in kg's 72.576 BP Systolic 112 mmHg BP Diastolic 70 mmHg Heart Rate 100 /min 06/01/2012 Weight 161.00 lb Weight in kg's 73.030 BP Systolic 126 mmHg BP Diastolic 86 mmHg Heart Rate 76 /min Body Temperature 98.7 F 03/25/2012 Weight 155.00 lb Weight in kg's 70.308 BP Systolic 108 mmHg BP Diastolic 62 mmHg Heart Rate 64 /min Height 66 inches 5'6" BMI (Body Mass Index) 25.0 kg/m2 11/05/2011 Weight 154.00 lb Weight in kg's 69.854 BP Systolic 128 mmHg BP Diastolic 90 mmHg Heart Rate 100 /min Body Temperature 98.7 F 10/16/2011 Weight 157.00 lb Weight in kg's 71.215 BP Systolic 128 mmHg BP Diastolic 80 mmHg Heart Rate 72 /min Body Temperature 97.9 F 03/25/2011 Weight 156.00 lb Weight in kg's 70.762 BP Systolic 130 mmHg BP Diastolic 80 mmHg Heart Rate 84 /min Height 66 inches 5'6" BMI (Body Mass Index) 25.2 kg/m2 05/16/2010 Weight 167.00 lb Weight in kg's 75.751 BP Systolic 140 mmHg BP Diastolic 80 mmHg Heart Rate 96 /min Body Temperature 99.1 F 03/22/2010 Weight 152.00 lb Weight in kg's 68.947 BP Systolic 146 mmHg BP Diastolic 74 mmHg Heart Rate 104 /min Height 67 inches 5'7" BMI (Body Mass Index) 23.8 kg/m2 02/22/2009 Weight 164.00 lb Weight in kg's 74.390 BP Systolic 124 mmHg BP Diastolic 62 mmHg Heart Rate 80 /min Height 67 inches 5'7" BMI (Body Mass Index) 25.7 kg/m2 02/22/2008 Weight 157.00 lb Weight in kg's 71.215 BP Systolic 124 mmHg BP Diastolic 70 mmHg Heart Rate 78 /min Respiratory Rate 18 /min Height 67 inches 5'7" BMI (Body Mass Index) 24.6 kg/m2 10/28/2007 Weight 150.00 lb Weight in kg's 68.040 BP Systolic 116 mmHg BP Diastolic 78 mmHg Heart Rate 72 /min Height 67 inches 5'7" BMI (Body Mass Index) 23.5 kg/m2 05/13/2007 Weight 156.00 lb Weight in kg's 70.762 BP Systolic 106 mmHg BP Diastolic 62 mmHg Heart Rate 74 /min Height 67 inches 5'7" BMI (Body Mass Index) 24.4 kg/m2 03/11/2007 Weight 146.00 lb Weight in kg's 66.226 BP Systolic 112 mmHg BP Diastolic 72 mmHg Heart Rate 77 /min Height 67 inches 5'7" BMI (Body Mass Index) 22.9 kg/m2 02/16/2007 Weight 148.00 lb Weight in kg's 67.133 BP Systolic 126 mmHg BP Diastolic 78 mmHg Heart Rate 82 /min Body Temperature 97.8 F Height 67 inches 5'7" BMI (Body Mass Index) 23.2 kg/m2 02/12/2006 Weight 152.00 lb Weight in kg's 68.947 BP Systolic 118 mmHg BP Diastolic 86 mmHg Heart Rate 72 /min Height 67 inches 5'7" BMI (Body Mass Index) 23.8 kg/m2 02/10/2006 Weight 149.00 lb Weight in kg's 67.586 BP Systolic 120 mmHg BP Diastolic 70 mmHg Heart Rate 72 /min Height 67 inches 5'7" BMI (Body Mass Index) 23.3 kg/m2 01/27/2006 Weight 154.00 lb Weight in kg's 69.854 BP Systolic 130 mmHg BP Diastolic 70 mmHg Heart Rate 68 /min Height 67 inches 5'7" BMI (Body Mass Index) 24.1 kg/m2 01/06/2006 Height 67 inches 5'7" 01/06/2006 Weight 154.00 lb Weight in kg's 69.854 BP Systolic 144 mmHg BP Diastolic 90 mmHg Heart Rate 92 /min Body Temperature 98.2 F Height 67 inches 5'7" BMI (Body Mass Index) 24.1 kg/m2 12/29/2005 Weight 155.00 lb Weight in kg's 70.308 BP Systolic 118 mmHg BP Diastolic 70 mmHg Heart Rate 80 /min Height 67 inches 5'7" BMI (Body Mass Index) 24.3 kg/m2 12/17/2005 Weight 158.00 lb Weight in kg's 71.669 BP Systolic 132 mmHg BP Diastolic 68 mmHg Heart Rate 72 /min Height 67 inches 5'7" BMI (Body Mass Index) 24.7 kg/m2 08/28/2005 Weight 161.00 lb Weight in kg's 73.030 BP Systolic 128 mmHg BP Diastolic 76 mmHg Body Temperature 97.8 F Height 67 inches 5'7" BMI (Body Mass Index) 25.2 kg/m2 08/05/2005 Weight 161.00 lb Weight in kg's 73.030 BP Systolic 124 mmHg BP Diastolic 80 mmHg Heart Rate 72 /min Body Temperature 97.4 F Height 67 inches 5'7" BMI (Body Mass Index) 25.2 kg/m2 O2 % BldC Oximetry 97 % 07/14/2005 Weight 164.00 lb Weight in kg's 74.390 BP Systolic 118 mmHg BP Diastolic 78 mmHg Heart Rate 80 /min Height 67 inches 5'7" BMI (Body Mass Index) 25.7 kg/m2 02/06/2005 Weight 168.00 lb Weight in kg's 76.205 BP Systolic 122 mmHg BP Diastolic 80 mmHg Heart Rate 76 /min Respiratory Rate 18 /min Height 67 inches 5'7" BMI (Body Mass Index) 26.3 kg/m2 06/21/2004 Weight 155.00 lb Weight in kg's 70.308 BP Systolic 130 mmHg BP Diastolic 80 mmHg Body Temperature 97.8 F Height 67 inches 5'7" BMI (Body Mass Index) 24.3 kg/m2 03/29/2004 Weight 160.00 lb Weight in kg's 72.576 BP Systolic 130 mmHg BP Diastolic 90 mmHg Height 67 inches 5'7" BMI (Body Mass Index) 25.1 kg/m2 02/06/2004 Weight 164.00 lb Weight in kg's 74.390 BP Systolic 140 mmHg BP Diastolic 86 mmHg Heart Rate 82 /min Respiratory Rate 18 /min Height 67 inches 5'7" BMI (Body Mass Index) 25.7 kg/m2 05/17/2003 Weight 172.00 lb Weight in kg's 78.019 BP Systolic 120 mmHg BP Diastolic 80 mmHg 02/14/2003 Weight 173.00 lb Weight in kg's 78.473 BP Systolic 114 mmHg BP Diastolic 70 mmHg Heart Rate 68 /min Respiratory Rate 16 /min Results Test Date Test Result H/L Range Note Urine DIP 12/01/2017 Leukocytes neg Neg Urine Nitrites neg Neg Urobilinogen norm Norm Total Protein, Urine neg Neg Urine pH 5.0 5-6 Urine Blood 250 High Neg Specific Chaplin 1.010 1.01-1.02 Urine Ketones neg Neg Urine Bilirubin neg Neg Urine Glucose norm Norm Laboratory test 09/16/2017 Vitamin D Total 26.2 ng/mL 20-50 finding 25(Oh) Laboratory test 07/10/2017 Urine Culture SEE RESULT BELOW 1, 2, 3 finding Urine DIP 07/10/2017 Leukocytes ++ Neg Urine Nitrites pos Neg Urobilinogen normal Norm Total Protein, Urine neg Neg Urine pH 7 High 5-6 Urine Blood about 250 Neg Specific Chaplin 1.010 1.01-1.02 Urine Ketones neg Neg Urine Bilirubin neg Neg Urine Glucose normal Norm CBC Auto Diff 01/28/2017 White Blood Count 8.9 10^3/uL 3.5-10.8 Red Blood Count 4.63 10^6/uL 4.0-5.4 Hemoglobin 14.0 g/dL 14.0-18.0 Hematocrit 43 % 42-52 Mean Corpuscular Volume 92 fL 80-94 Mean Corpuscular Hemoglobin 30 pg 27-31 Mean Corpuscular HGB Conc 33 g/dL 31-36 Red Cell Distribution Width 13 % 10.5-15 Platelet Count 451 10^3/uL High 150-450 Mean Platelet Volume 7 um3 Low 7.4-10.4 Abs Neutrophils 5.1 10^3/uL 1.5-7.7 Abs Lymphocytes 2.6 10^3/uL 1.0-4.8 Abs Monocytes 1.0 10^3/uL High 0-0.8 Abs Eosinophils 0.2 10^3/uL 0-0.6 Abs Basophils 0.1 10^3/uL 0-0.2 Abs Nucleated RBC 0.01 10^3/uL Granulocyte % 57.5 % 38-83 Lymphocyte % 28.8 % 25-47 Monocyte % 11.0 % High 1-9 Eosinophil % 1.9 % 0-6 Basophil % 0.8 % 0-2 Nucleated Red Blood Cells % 0.1 Laboratory test finding 01/16/2017 Erythrocyte Sed Rate 60 mm/Hr High 0- 20 Lamotrigine (Lamictal) 13.0 g/mL 2.5 - 15.0 4 Lacosamide 12.2 g/mL 1.0 - 10.0 5 CBC Auto Diff 01/16/2017 White Blood Count 25.2 10^3/uL High 3.5-10.8 Red Blood Count 4.19 10^6/uL 4.0-5.4 Hemoglobin 12.9 g/dL Low 14.0-18.0 Hematocrit 38 % Low 42-52 Mean Corpuscular Volume 91 fL 80-94 Mean Corpuscular Hemoglobin 31 pg 27-31 Mean Corpuscular HGB Conc 34 g/dL 31-36 Red Cell Distribution Width 12 % 10.5-15 Platelet Count 184 10^3/uL 150-450 Mean Platelet Volume 7 um3 Low 7.4-10.4 Abs Neutrophils 21.2 10^3/uL High 1.5-7.7 Abs Lymphocytes 1.5 10^3/uL 1.0-4.8 Abs Monocytes 2.3 10^3/uL High 0-0.8 Abs Eosinophils 0.1 10^3/uL 0-0.6 Abs Basophils 0.1 10^3/uL 0-0.2 Abs Nucleated RBC 0 10^3/uL Granulocyte % 84.4 % High 38-83 Lymphocyte % 5.8 % Low 25-47 Monocyte % 9.0 % 1-9 Eosinophil % 0.4 % 0-6 Basophil % 0.4 % 0-2 Nucleated Red Blood Cells % 0 Urinalysis Profile 01/16/2017 Urine Color Ashley Urine Appearance Cloudy Urine Specific Chaplin 1.021 1.010-1.030 Urine pH 6.0 5-9 Urine Urobilinogen Negative Negative Urine Ketones Trace Negative Urine Protein 1+(30 mg/dL) Negative Urine Leukocytes 3+ Negative Urine Blood 2+ Negative * * Negative 6 Urine Nitrite Positive Negative Urine Bilirubin Negative Negative Urine Glucose Negative Negative Urine White Blood Cell 3+(>20/hpf) Absent Urine Red Blood Cell 3+(>10/hpf) Absent Urine Bacteria 1+ Absent Urine Squamous Epithelial Cell Present Absent Laboratory test 01/16/2017 Urine Culture SEE RESULT 7 finding BELOW Laboratory test 01/16/2017 D Dimer Quantitative 243 ng/mL High Less Than 8 finding 230 Comp Metabolic 01/16/2017 Sodium 132 mmol/L Low 133-145 Panel Potassium 4.3 mmol/L 3.5-5.0 Chloride 98 mmol/L Low 101-111 Co2 Carbon Dioxide 30 mmol/L 22-32 Anion Gap 4 mmol/L 2-11 Glucose 104 mg/dL High 70-100 Blood Urea Nitrogen 13 mg/dL 6-24 Creatinine 0.62 mg/dL Low 0.67-1.17 BUN/Creatinine Ratio 21.0 High 8-20 Calcium 9.2 mg/dL 8.6-10.3 Total Protein 6.5 g/dL 6.4-8.9 Albumin 3.6 g/dL 3.2-5.2 Globulin 2.9 g/dL 2-4 Albumin/Globulin Ratio 1.2 1-3 Total Bilirubin 0.60 mg/dL 0.2-1.0 Alkaline Phosphatase 88 U/L 34-104 Alt 34 U/L 7-52 Ast 22 U/L 13-39 Egfr Non- 136.8 >60 Egfr 175.9 >60 9 Laboratory test finding 04/15/2016 Hemoglobin A1c (Glyco 5.3 % Less than 6.0 10 HGB) Urine DIP 01/30/2016 Leukocytes neg Neg Urine Nitrites neg Neg Urobilinogen neg Norm Total Protein, Urine neg Neg Urine pH 6 5-6 Urine Blood trace Neg Specific Chaplin 1.010 1.01-1.02 Urine Ketones neg Neg Urine Bilirubin neg Neg Urine Glucose neg Norm Urine DIP 01/08/2016 Leukocytes neg Neg Urine Nitrites neg Neg Urobilinogen norm Norm Total Protein, Urine neg Neg Urine pH 7 High 5-6 Urine Blood trace Neg Specific Chaplin 1.015 1.01-1.02 Urine Ketones neg Neg Urine Bilirubin neg Neg Urine Glucose norm Norm CBC Auto Diff 01/01/2016 White Blood Count 10.9 10^3/uL High 3.5-10.8 Red Blood Count 5.00 10^6/uL 4.0-5.4 Hemoglobin 15.2 g/dL 14.0-18.0 Hematocrit 46 % 42-52 Mean Corpuscular Volume 91 fL 80-94 Mean Corpuscular Hemoglobin 30 pg 27-31 Mean Corpuscular HGB Conc 33 g/dL 31-36 Red Cell Distribution Width 12 % 10.5-15 Platelet Count 246 10^3/uL 150-450 Mean Platelet Volume 8 um3 7.4-10.4 Abs Neutrophils 9.1 10^3/uL High 1.5-7.7 Abs Lymphocytes 0.9 10^3/uL Low 1.0-4.8 Abs Monocytes 0.9 10^3/uL High 0-0.8 Abs Eosinophils 0 10^3/uL 0-0.6 Abs Basophils 0 10^3/uL 0-0.2 Abs Nucleated RBC 0.01 10^3/uL Granulocyte % 83.1 % High 38-83 Lymphocyte % 8.5 % Low 25-47 Monocyte % 8.1 % 1-9 Eosinophil % 0.1 % 0-6 Basophil % 0.2 % 0-2 Nucleated Red Blood Cells % 0.1 Basic Metabolic Panel 01/01/2016 Sodium 134 mmol/L 133-145 Potassium 4.1 mmol/L 3.5-5.0 Chloride 100 mmol/L Low 101-111 Co2 Carbon Dioxide 27 mmol/L 22-32 Anion Gap 7 mmol/L 2-11 Glucose 119 mg/dL High 70-100 Blood Urea Nitrogen 8 mg/dL 6-24 Creatinine 0.68 mg/dL 0.67-1.17 BUN/Creatinine Ratio 11.8 8-20 Calcium 9.8 mg/dL 8.6-10.3 Egfr Non- 123.4 >60 Egfr 158.7 >60 11 Urinalysis Profile 01/01/2016 Urine Color Yellow Urine Appearance Clear Urine Specific [place] 1.016 1.010-1.030 Urine pH 8.0 5-9 Urine Urobilinogen Negative Negative Urine Ketones Trace Negative Urine Protein Negative Negative Urine Leukocytes Negative Negative Urine Blood 1+ Negative Urine Nitrite Negative Negative Urine Bilirubin Negative Negative Urine Glucose Negative Negative Urine White Blood Cell Trace(0-5/hpf) Absent Urine Red Blood Cell 3+(>10/hpf) Absent Urine Bacteria Absent Absent Basic Metabolic Panel 06/27/2015 Sodium 137 mmol/L 133-145 Potassium 4.4 mmol/L 3.5-5.0 Chloride 102 mmol/L 101-111 Co2 Carbon Dioxide 30 mmol/L 22-32 Anion Gap 5 mmol/L 2-11 Glucose 106 mg/dL High 70-100 Blood Urea Nitrogen 14 mg/dL 6-24 Creatinine 0.68 mg/dL 0.67-1.17 BUN/Creatinine Ratio 20.6 High 8-20 Calcium 9.4 mg/dL 8.6-10.3 Egfr Non- 123.9 >60 Egfr 159.4 >60 12 Liver Function Panel 06/27/2015 Total Protein 6.8 g/dL 6.4-8.9 Albumin 4.5 g/dL 3.2-5.2 Globulin 2.3 g/dL 2-4 Albumin/Globulin Ratio 2.0 1-3 Total Bilirubin 0.40 mg/dL 0.2-1.0 Direct Bilirubin 0.10 mg/dL 0.03-0.18 Indirect Bilirubin 0.3 mg/dL 0.3-1.0 Alkaline Phosphatase 76 U/L 34-104 Alt 15 U/L 7-52 Ast 14 U/L 13-39 CBC Auto Diff 06/27/2015 White Blood Count 6.2 10^3/uL 3.5-10.8 Red Blood Count 4.94 10^6/uL 4.0-5.4 Hemoglobin 15.1 g/dL 14.0-18.0 Hematocrit 46 % 42-52 Mean Corpuscular Volume 94 fL 80-94 Mean Corpuscular Hemoglobin 31 pg 27-31 Mean Corpuscular HGB Conc 33 g/dL 31-36 Red Cell Distribution Width 13 % 10.5-15 Platelet Count 249 10^3/uL 150-450 Mean Platelet Volume 9 um3 7.4-10.4 Abs Neutrophils 3.9 10^3/uL 1.5-7.7 Abs Lymphocytes 1.4 10^3/uL 1.0-4.8 Abs Monocytes 0.7 10^3/uL 0-0.8 Abs Eosinophils 0.1 10^3/uL 0-0.6 Abs Basophils 0 10^3/uL 0-0.2 Abs Nucleated RBC 0 10^3/uL Granulocyte % 63.4 % 38-83 Lymphocyte % 22.6 % Low 25-47 Monocyte % 12.1 % High 1-9 Eosinophil % 1.3 % 0-6 Basophil % 0.6 % 0-2 Nucleated Red Blood Cells % 0 Surgical Pathology 09/05/2014 S RUN DATE: <SEE NOTE> Urine Culture And 07/17/2014 Urine Culture (SEE NOTE) 14 Sensitivities Urine DIP 07/17/2014 Specific [place] 1.020 1.01-1.02 Urine pH 6 5-6 Leukocytes TRACE Neg Urine Nitrites NEG Neg Total Protein, Urine NEG Neg Urine Glucose NORM Norm Urine Ketones NEG Neg Urobilinogen NORM Norm Urine Bilirubin NEG Neg Urine Blood TRACE Neg Basic Metabolic Panel 06/20/2014 Sodium 135 mmol/L 133-145 15 Potassium 4.6 mmol/L 3.5-5.0 15 Chloride 101 mmol/L 101-111 15 Co2 Carbon Dioxide 27 mmol/L 22-32 15 Anion Gap 7 mmol/L 2-11 15 Glucose 92 mg/dL 70-100 15 Blood Urea Nitrogen 16 mg/dL 6-24 15 Creatinine 0.64 mg/dL Low 0.67-1.17 15 BUN/Creatinine Ratio 25.0 High 8-20 15 Calcium 9.9 mg/dL 8.6-10.3 15 Egfr Non- 133.5 >60 15 Egfr 171.7 >60 15, 16 Liver Function Panel 06/20/2014 Total Protein 7.3 g/dL 6.4-8.9 15 Albumin 4.8 g/dL 3.2-5.2 15 Globulin 2.5 g/dL 2-4 15 Albumin/Globulin Ratio 1.9 1-3 15 Total Bilirubin 0.40 mg/dL 0.2-1.0 15 Direct Bilirubin 0.10 mg/dL 0.03-0.18 15 Indirect Bilirubin 0.3 mg/dL 0.3-1.0 15 Alkaline Phosphatase 83 U/L 34-104 15 Alt 20 U/L 7-52 15 Ast 16 U/L 13-39 15 CBC Auto Diff 06/20/2014 White Blood Count 7.6 10^3/uL 4.8-10.8 15 Red Blood Count 4.83 10^6/uL 4.0-5.4 15 Hemoglobin 15.1 g/dL 14.0-18.0 15 Hematocrit 45 % 42-52 15 Mean Corpuscular Volume 93 fL 80-94 15 Mean Corpuscular Hemoglobin 31 pg 27-31 15 Mean Corpuscular HGB Conc 34 g/dL 31-36 15 Red Cell Distribution Width 13 % 10.5-15 15 Platelet Count 258 10^3/uL 150-450 15 Mean Platelet Volume 8 um3 7.4-10.4 15 Abs Neutrophils 5.4 10^3/uL 1.5-7.7 15 Abs Lymphocytes 1.2 10^3/uL 1.0-4.8 15 Abs Monocytes 0.8 10^3/uL 0-0.8 15 Abs Eosinophils 0.1 10^3/uL 0-0.6 15 Abs Basophils 0.1 10^3/uL 0-0.2 15 Abs Nucleated RBC 0.01 10^3/uL 15 Granulocyte % 71.0 % 38-83 15 Lymphocyte % 16.5 % Low 25-47 15 Monocyte % 10.1 % High 1-9 15 Eosinophil % 1.0 % 0-6 15 Basophil % 1.4 % 0-2 15 Nucleated Red Blood Cells % 0.1 15 Laboratory test finding 10/08/2013 Lamotrigine 10.2 g/mL 2.5 - 15.0 17 Lacosamide 4.2 g/mL 1.0 - 10.0 18 Urinalysis 03/10/2013 Urine Color Yellow Urine Appearance Clear Urine Specific [place] 1.010 1.010-1.030 Urine Esterase Negative Negative Urine Nitrate Negative Negative Urine Urobilinogen Negative E.U./dL Negative Urine Protein Negative mg/dL Negative Urine pH 7.0 5-9 Urine Blood Trace Negative Urine Ketones Negative mg/dL Negative Urine Bilirubin Negative Negative Urine Glucose Negative mg/dL Negative Urine Microscopic 03/10/2013 Urine WBC 1+ (<3 /hpf) None Seen Urine RBC None Seen None Seen Bacteria Urine 1+ None Seen Laboratory test finding 08/25/2012 Lamotrigine 8.9 g/mL 2.5 - 15.0 19 Laboratory test finding 05/11/2012 Lamotrigine 13.2 g/mL 2.5 - 15.0 20 Laboratory test finding 05/11/2012 Valproic Acid 84.0 g/mL 50.0-100.0 21 CBC No Diff 12/29/2011 White Blood Count 6.0 CUMM 4.8-10.8 Red Cell Count 4.46 CUMM Low 4.6-6.2 Hemoglobin 14.6 g/dL 14.0-18.0 Hematocrit 43 % 42-52 Mean Corpuscular Volume 96 um3 High 80-94 Mean Corpuscular Hemoglob 33 pg High 27-31 Mean Corpuscular HGB Cone 34 g/dL 32-36 Redcell Distribution WDTH 13 % 10.5-15 Platelet Count 168 CUMM 150-450 Mean Platelet Volume 7.9 um3 7.4-10.4 Liver Function Panel 12/29/2011 Total Protein 5.9 GM/DL Low 6.2-8.1 Albumin 3.8 GM/DL 3.6-5.4 Globulin 2.1 GM/DL 2-4 Albumin/Globulin Ratio 1.8 1-3 Bilirubin Total 0.6 mg/dL 0.4-1.5 22 Bilirubin Direct 0.1 mg/dL 0.1-0.5 Indirect Bilirubin 0.5 mg/dL 0.3-1.0 23 Alkaline Phosphatase 73 U/L 39-117 Alt (SGPT) 16 U/L Low 17-63 Ast (Sgot) 16 U/L 12-42 Basic Metabolic Panel 12/29/2011 Sodium 134 mmol/L Low 135-145 Potassium 4.6 mmol/L 3.5-5.0 Chloride 97 mmol/L Low 101-111 Co2 (Carbon Dioxide) 31.0 mmol/L 22-32 Anion Gap 6.0 mmol/L 2-11 24 Glucose 95 mg/dL 70-100 BUN 5 mg/dL Low 6-24 Creatinine 0.6 mg/dL 0.50-1.40 One Over Creatinine 1.66 BUN/Creatinine Ratio 8.3 8-20 Calcium 8.9 mg/dL 8.1-9.9 eGFR Non- 145.0 > 60 eGFR 186.5 > 60 25 Laboratory test finding 11/27/2011 Lamotrigine 9.0 g/mL 2.5 - 15.0 26 Trileptal (Oxcarbazepine) 19 g/mL 3 - 35 27 Urine Culture & Sensitivi 11/06/2011 M <SEE NOTE> 28 Urine DIP 11/06/2011 Leukocytes NEG Neg Urine Nitrites NEG Neg Urine pH 5 5-6 Total Protein, Urine TRACE Neg Urine Glucose RM Norm Urine Ketones NEG Neg Urobilinogen NORM Norm Urine Bilirubin NEG Neg Urine Blood 50 High Neg Specific [place] NA Low 1.01-1.02 Urine Culture & 08/20/2011 M <SEE NOTE> 29 Sensitivi Urinalysis 08/20/2011 Ua Color YELLOW Yellow Appearance-Urine CLEAR Clear Specific [place]-Ur 1.013 1.010-1.030 Esterase-Urine NEGATIVE Negative Nitrite NEGATIVE Negative [id number]-PFD NEGATIVE Negative Protein-Urine NEGATIVE Negative PH-Urine 7.5 5-9 Blood-Urine NEGATIVE Negative Ketones-Urine NEGATIVE Negative Bilirubin-Ur NEGATIVE Negative Glucose-Urine NEGATIVE Negative CBC Auto Diff 03/25/2011 White Blood Count 7.0 CUMM 4.8-10.8 Red Cell Count 4.30 CUMM Low 4.6-6.2 Hemoglobin 13.8 g/dL Low 14.0-18.0 Hematocrit 40 % Low 42-52 Mean Corpuscular Volume 93 um3 80-94 Mean Corpuscular Hemoglob 32 pg High 27-31 Mean Corpuscular HGB Cone 35 g/dL 32-36 Redcell Distribution WDTH 12 % 10.5-15 Platelet Count 258 CUMM 150-450 Mean Platelet Volume 7.7 um3 7.4-10.4 Gran % 63.1 % 38-83 Lymph % 23.9 % Low 25-47 Mononuclear % 10.7 % High 1-9 Eosinophil % 1.9 % 0-6 Basophil % 0.4 % 0-2 Abs Lymphs 1.7 1.0-4.8 Abs Mononuclear 0.8 0-0.8 Absolute Neutrophil Count 4.4 1.5-7.7 Abs Eosinophils 0.1 0-0.6 Abs Basophils 0 0-0.2 Comp Metabolic Panel 03/25/2011 Sodium 126 mmol/L Low 135-145 Potassium 4.6 mmol/L 3.5-5.0 Chloride 91 mmol/L Low 101-111 Co2 (Carbon Dioxide) 29.0 mmol/L 22-32 Anion Gap 6.0 mmol/L 2-11 30 Glucose 89 mg/dL 70-100 BUN 7 mg/dL 6-24 Creatinine 0.6 mg/dL 0.50-1.40 One Over Creatinine 1.66 BUN/Creatinine Ratio 11.7 8-20 Calcium 9.2 mg/dL 8.1-9.9 Total Protein 6.2 GM/DL 6.2-8.1 Albumin 4.3 GM/DL 3.6-5.4 Globulin 1.9 GM/DL Low 2-4 Albumin/Globulin Ratio 2.3 1-3 Bilirubin Total 0.6 mg/dL 0.4-1.5 31 Alkaline Phosphatase 87 U/L 39-117 Alt (SGPT) 19 U/L 17-63 Ast (Sgot) 20 U/L 12-42 eGFR Non- 145.7 > 60 eGFR 187.4 > 60 32 Vitamin D, 25 Hydroxy 07/24/2010 25-Hydroxy Vitamin D2 <4.0 ng/mL () 25-Hydroxy Vitamin D3 57 ng/mL () 25-Hydroxy Vitamin D Total 57 ng/mL () 33 Vitamin D, 25 Hydroxy 03/26/2010 25-Hydroxy Vitamin D2 4.1 ng/mL () 25-Hydroxy Vitamin D3 25 ng/mL () 25-Hydroxy Vitamin D Total 29 ng/mL () 34 Lipid Profile (Trig/Chol/HDL) 03/26/2010 Triglyceride 46 mg/dL 40-200 Cholesterol 173 mg/dL Less Than 200 35 High Density Lipoprotein 69 mg/dL High 40-60 36 Cholesterol/HDL Ratio 2.51 AVERAGE 1-4.97 Low Density Lipoprotein 95 mg/dL Less Than 100 37 Urine Culture Sensitivities 10/23/2009 Ciprofloxacin 1 38 Nitrofurantoin <=16 38 Gentamicin <=0.5 38 Levofloxacin 0.5 38 Linezolid 2 38 Oxacillin <=0.25 38 Rifampin <=0.5 38 Trimeth-Sulfa <=10 38 Tetracycline <=1 38 Tigecycline <=0.12 38 Vancomycin 1 38 Urine Culture 10/23/2009 Urine Culture STAPH HAEMOLYTIC 38, 39 Sensitivi Sensitivi <SEE NOTE> CBC With Electronic 01/30/2009 White Blood Count 6.4 CUMM 4.8-10.8 38 Diff Red Cell Count 4.36 CUMM Low 4.6-6.2 38 Hemoglobin 13.7 g/dL Low 14.0-18.0 38 Hematocrit 40 % Low 42-52 38 Mean Corpuscular Volume 92 um3 80-94 38 Mean Corpuscular Hemoglob 32 pg High 27-31 38 Mean Corpuscular HGB Cone 34 g/dL 32-36 38 Redcell Distribution WDTH 13 % 10.5-15 38 Platelet Count 250 CUMM 150-450 38 Mean Platelet Volume 7.1 um3 Low 7.4-10.4 38 Gran % 52.8 % 38-83 38 Lymph % 33.4 % 25-47 38 Mononuclear % 11.4 % High 1-9 38 Eosinophil % 2.0 % 0-6 38 Basophil % 0.4 % 0-2 38 Abs Lymphs 2.1 1.0-4.8 38 Abs Mononuclear 0.7 0-0.8 38 Absolute Neutrophil Count 3.4 1.5-7.7 38 Abs Eosinophils 0.1 0-0.6 38 Abs Basophils 0 0-0.2 38 Comp Metabolic Panel 01/30/2009 Sodium 130 mmol/L Low 135-145 38 Potassium 4.4 mmol/L 3.5-5.0 38 Chloride 94 mmol/L Low 101-111 38 Co2 (Carbon Dioxide) 29.0 mmol/L 22-32 38 Anion Gap 7.0 mmol/L 2-11 38, 40 Glucose 87 mg/dL 70-100 38, 41 BUN 7 mg/dL 6-24 38 Creatinine 0.60 mg/dL 0.50-1.40 38 One Over Creatinine 1.60 38 BUN/Creatinine Ratio 11.7 8-20 38 Calcium 9.1 mg/dL 8.1-9.9 38, 42 Total Protein 6.4 GM/DL 6.2-8.1 38 Albumin 4.1 GM/DL 3.6-5.4 38 Globulin 2.3 GM/DL 2-4 38 Albumin/Globulin Ratio 1.8 1-3 38 Bilirubin Total 0.7 mg/dL 0.4-1.5 38, 43 Alkaline Phosphatase 82 U/L 39-117 38 Alt (SGPT) 21 U/L 17-63 38 Ast (Sgot) 23 U/L 12-42 38 eGFR Non- 156.3 > 60 38 eGFR 189.1 > 60 38, 44 Urine Culture Sensitivi 07/25/2008 Urine Culture Sensitivi SN1 38, 45 Vitamin D.25 Hydroxy 07/21/2008 25-Hydroxy Vitamin D2 9.1 ng/mL () 25-Hydroxy Vitamin D3 30 ng/mL () 25-Hydroxy Vitamin D Total 39 ng/mL () 46 Laboratory test finding 07/21/2008 Lamotrigine 10.5 ug/mL () 47 Trileptal (Oxcarbazepine) 5.7 ug/mL () 48 Liver Function Panel 05/30/2008 Total Protein 6.2 GM/DL 6.2-8.1 38 Albumin 3.4 GM/DL Low 3.6-5.4 38 Globulin 2.8 GM/DL 2-4 38 Albumin/Globulin Ratio 1.2 1-3 38 Bilirubin Total 0.7 mg/dL 0.4-1.5 38 Bilirubin Direct 0.2 mg/dL 0.1-0.5 38 Indirect Bilirubin 0.5 mg/dL 0.1-0.75 38 Alkaline Phosphatase 57 U/L 39-117 38 Alt (SGPT) 28 U/L 17-63 38 Ast (Sgot) 26 U/L 12-42 38 Laboratory test finding 05/30/2008 Valproic Acid 83.9 g/mL 50-100 38, 49 (Depakene) Lamotrigine 16.5 ug/mL () 38, 50 Laboratory test finding 04/11/2008 Valproic Acid 104.4 g/mL High 50-100 51 (Depakene) Lamotrigine 26.6 ug/mL () 52 Laboratory test finding 03/28/2008 Valproic Acid 66.6 g/mL 50-100 38, 53 (Depakene) Lamotrigine 19.5 ug/mL () 38, 54 Urinalysis Stat 01/21/2008 Ua Color YELLOW Appearance-Urine CLOUDY Specific [place]-Ur 1.014 1.010-1.030 Esterase-Urine NEGATIVE Negative Nitrite NEGATIVE Negative [id number] NEGATIVE Negative Protein-Urine NEGATIVE Negative PH-Urine 8.0 5-9 Blood-Urine TRACE Negative Ketones-Urine NEGATIVE Negative Bilirubin-Ur NEGATIVE Negative Glucose-Urine NEGATIVE Negative Urinalysis W/Microscopic 01/21/2008 Ua Color YELLOW Appearance-Urine CLOUDY Specific [place]-Ur 1.014 1.010-1.030 Esterase-Urine NEGATIVE Negative Nitrite NEGATIVE Negative [id number] NEGATIVE Negative Protein-Urine NEGATIVE Negative PH-Urine 8.0 5-9 Blood-Urine TRACE Negative Ketones-Urine NEGATIVE Negative Bilirubin-Ur NEGATIVE Negative Glucose-Urine NEGATIVE Negative WBC-Urine 1-2 0-5 RBC-Urine RARE 0-2 Epith Cells-Ur 0-2 Amorphous Sed-U MODERATE CBC With Electronic Diff Stat 01/21/2008 White Blood Count 8.1 CUMM 4.8- 10.8 Red Cell Count 4.46 CUMM Low 4.6-6.2 Hemoglobin 14.0 g/dL 14.0-18.0 Hematocrit 41 % Low 42-52 Mean Corpuscular Volume 91 um3 80-94 Mean Corpuscular Hemoglob 32 pg High 27-31 Mean Corpuscular HGB Cone 35 g/dL 32-36 Redcell Distribution WDTH 12 % 10.5-15 Platelet Count 233 CUMM 150-450 Mean Platelet Volume 7.1 um3 Low 7.4-10.4 Gran % 71.3 % 38-83 Lymph % 18.5 % Low 20-45 Mononuclear % 9.1 % High 1-9 Eosinophil % 0.8 % 0-6 Basophil % 0.3 % 0-2 Abs Lymphs 1.5 1.0-4.8 Abs Mononuclear 0.7 0-0.8 Absolute Neutrophil Count 5.8 1.5-7.7 Abs Eosinophils 0.1 0-0.6 Abs Basophils 0 0-0.2 55 Basic Metabolic Panel Stat 01/21/2008 Sodium 138 mmol/L 135-145 Potassium 4.2 mmol/L 3.5-5.0 Chloride 105 mmol/L 101-111 Co2 (Carbon Dioxide) 30.0 mmol/L 22-32 Anion Gap 3.0 mmol/L 2-11 56 Glucose 98 mg/dL 70-100 57 BUN 13 mg/dL 6-24 Creatinine 0.8 mg/dL 0.5-1.4 One Over Creatinine 1.25 BUN/Creatinine Ratio 16.3 8-20 Calcium 8.7 mg/dL 8.1-9.9 58 Laboratory test finding 01/21/2008 Valproic Acid (Depakene) 28.6 g/mL Low 50-100 59 Urine DIP 10/28/2007 Leukocytes NEG Neg Urine Nitrites NEG Neg Urine pH 5 5-6 Total Protein, Urine NEG Neg Urine Glucose NORM Norm Urine Ketones NEG Neg Urobilinogen NORM Norm Urine Bilirubin NEG Neg Urine Blood NEG Neg Specific [place] N/A Low 1.01-1.02 Comp Metabolic Panel 10/25/2007 Sodium 137 mmol/L 135-145 Potassium 4.3 mmol/L 3.5-5.0 Chloride 104 mmol/L 101-111 Co2 (Carbon Dioxide) 29.0 mmol/L 22-32 Anion Gap 4.0 mmol/L 2-11 60 Glucose 112 mg/dL High 70-105 BUN 16 mg/dL 6-24 Creatinine 0.7 mg/dL 0.5-1.4 One Over Creatinine 1.42 BUN/Creatinine Ratio 22.9 High 8-20 Calcium 8.9 mg/dL 8.1-9.9 61 Total Protein 6.6 GM/DL 6.2-8.1 Albumin 4.1 GM/DL 3.6-5.4 Globulin 2.5 GM/DL 2-4 Albumin/Globulin Ratio 1.6 1-3 Bilirubin Total 0.3 mg/dL Low 0.4-1.5 Alkaline Phosphatase 82 U/L 39-117 Alt (SGPT) 21 U/L 17-63 Ast (Sgot) 22 U/L 12-42 CBC With Electronic Diff 10/25/2007 White Blood Count 7.4 CUMM 4.8-10.8 Red Cell Count 4.52 CUMM Low 4.6-6.2 Hemoglobin 14.1 g/dL 14.0-18.0 Hematocrit 41 % Low 42-52 Mean Corpuscular Volume 91 um3 80-94 Mean Corpuscular Hemoglob 31 pg 27-31 Mean Corpuscular HGB Cone 34 g/dL 32-36 Redcell Distribution WDTH 12 % 10.5-15 Platelet Count 266 CUMM 150-450 Mean Platelet Volume 6.9 um3 Low 7.4-10.4 Gran % 65.5 % 38-83 Lymph % 20.4 % 20-45 Mononuclear % 12.3 % High 1-9 Eosinophil % 1.2 % 0-6 Basophil % 0.6 % 0-2 Abs Lymphs 1.5 1.0-4.8 Abs Mononuclear 0.9 High 0-0.8 Absolute Neutrophil Count 4.9 1.5-7.7 Abs Eosinophils 0.1 0-0.6 Abs Basophils 0 0-0.2 CBC With Electronic Diff Stat 08/24/2007 White Blood Count 8.8 CUMM 4.8- 10.8 Abs Basophils 0.1 0-0.2 Abs Eosinophils 0.1 0-0.6 Absolute Neutrophil Count 5.7 1.5-7.7 Abs Lymphs 2.1 1.0-4.8 Abs Mononuclear 0.8 0-0.8 Basophil % 0.8 % 0-2 Hematocrit 40 % Low 42-52 Hemoglobin 13.8 g/dL Low 14.0-18.0 Eosinophil % 1.2 % 0-6 Gran % 64.7 % 38-83 Lymph % 23.7 % 20-45 Mean Corpuscular HGB Cone 34 g/dL 32-36 Mean Corpuscular Hemoglob 31 pg 27-31 Mean Corpuscular Volume 91 um3 80-94 Mean Platelet Volume 7.1 um3 Low 7.4-10.4 Mononuclear % 9.6 % High 1-9 Platelet Count 215 CUMM 150-450 Red Cell Count 4.42 CUMM Low 4.6-6.2 Redcell Distribution WDTH 12 % 10.5-15 CMP Stat 08/24/2007 One Over Creatinine 1.11 Anion Gap -1.0 mmol/L Low 2-11 62 Albumin/Globulin Ratio 1.4 1-3 Albumin 4.2 GM/DL 3.6-5.4 Alkaline Phosphatase 69 U/L 39-117 Alt (SGPT) 30 U/L 17-63 Ast (Sgot) 34 U/L 12-42 BUN 11 mg/dL 6-24 Calcium 9.0 mg/dL 8.7-10.2 Chloride 101 mmol/L 101-111 Co2 (Carbon Dioxide) 30.0 mmol/L 22-32 Globulin 3.0 GM/DL 2-4 Glucose 107 mg/dL High 70-105 Potassium 4.0 mmol/L 3.5-5.0 Sodium 130 mmol/L Low 135-145 Bilirubin Total 0.7 mg/dL 0.4-1.5 Total Protein 7.2 GM/DL 6.2-8.1 BUN/Creatinine Ratio 12.2 8-20 Creatinine 0.9 mg/dL 0.5-1.4 CBC With Electronic Diff Stat 07/16/2007 White Blood Count 6.4 CUMM 4.8- 10.8 Abs Basophils 0 0-0.2 Abs Eosinophils 0.1 0-0.6 Absolute Neutrophil Count 4.5 1.5-7.7 Abs Lymphs 1.2 1.0-4.8 Abs Mononuclear 0.6 0-0.8 Basophil % 0.6 % 0-2 Hematocrit 39 % Low 42-52 Hemoglobin 13.3 g/dL Low 14.0-18.0 Eosinophil % 1.0 % 0-6 Gran % 71.0 % 38-83 Lymph % 18.3 % Low 20-45 Mean Corpuscular HGB Cone 35 g/dL 32-36 Mean Corpuscular Hemoglob 31 pg 27-31 Mean Corpuscular Volume 90 um3 80-94 Mean Platelet Volume 7.6 um3 7.4-10.4 Mononuclear % 9.1 % High 1-9 Platelet Count 248 CUMM 150-450 Red Cell Count 4.32 CUMM Low 4.6-6.2 Redcell Distribution WDTH 12 % 10.5-15 Basic Metabolic Panel Stat 07/16/2007 One Over Creatinine 1.11 Anion Gap 9.0 mmol/L 2-11 63 BUN 12 mg/dL 6-24 Calcium 8.6 mg/dL Low 8.7-10.2 Chloride 101 mmol/L 101-111 Co2 (Carbon Dioxide) 27.0 mmol/L 22-32 Glucose 113 mg/dL High 70-105 Potassium 4.0 mmol/L 3.5-5.0 Sodium 137 mmol/L 135-145 BUN/Creatinine Ratio 13.3 8-20 Creatinine 0.9 mg/dL 0.5-1.4 Laboratory test finding 07/16/2007 Lamotrigine 13.7 ug/mL () 64 Urine Culture And 03/26/2007 Urine Culture Sensitivi NG 65 Sensitivites Urinalysis W/Microscopic 03/07/2007 Ua Color YELLOW Amorphous Sed-U TRACE Appearance-Urine CLEAR Bacteria-Urine TRACE Bilirubin-Ur NEGATIVE Negative Blood-Urine TRACE Negative Epith Cells-Ur RARE Esterase-Urine NEGATIVE Negative Glucose-Urine NEGATIVE Negative Ketones-Urine NEGATIVE Negative Nitrite NEGATIVE Negative PH-Urine 7.0 5-9 Protein-Urine NEGATIVE Negative RBC-Urine 1-3 0-2 Nibrcjoaoyim-Hq-SXW NEGATIVE Negative Specific [place]-Ur 1.009 Low 1.010-1.030 WBC-Urine 0-2 0-5 CBC With Electronic Diff Stat 03/07/2007 White Blood Count 6.9 CUMM 4.8- 10.8 Abs Basophils 0 0-0.2 Abs Eosinophils 0.1 0-0.6 Absolute Neutrophil Count 4.1 1.5-7.7 Abs Lymphs 2.0 1.0-4.8 Abs Mononuclear 0.7 0-0.8 Basophil % 0.7 % 0-2 Hematocrit 39 % Low 42-52 Hemoglobin 13.5 g/dL Low 14.0-18.0 Eosinophil % 1.8 % 0-6 Gran % 57.7 % 38-83 Lymph % 29.3 % 20-45 Mean Corpuscular HGB Cone 35 g/dL 32-36 Mean Corpuscular Hemoglob 32 pg High 27-31 Mean Corpuscular Volume 92 um3 80-94 Mean Platelet Volume 7.1 um3 Low 7.4-10.4 Mononuclear % 10.5 % High 1-9 Platelet Count 216 CUMM 150-450 Red Cell Count 4.21 CUMM Low 4.6-6.2 Redcell Distribution WDTH 12 % 10.5-15 Basic Metabolic Panel Stat 03/07/2007 One Over Creatinine 1.25 Anion Gap 2.0 mmol/L 2-11 66 BUN 16 mg/dL 6-24 Calcium 9.1 mg/dL 8.7-10.2 Chloride 108 mmol/L 101-111 Co2 (Carbon Dioxide) 33.0 mmol/L High 22-32 Glucose 107 mg/dL High 70-105 Potassium 4.1 mmol/L 3.5-5.0 Sodium 143 mmol/L 135-145 BUN/Creatinine Ratio 20.0 8-20 Creatinine 0.8 mg/dL 0.5-1.4 Laboratory test finding 03/07/2007 Troponin-I (TnI) 0.02 NG/ML 0-0.06 67 Laboratory test finding 05/29/2006 Hepatitis B Surface AB NEGATIVE Negative CBC With Manual Diff 05/29/2006 White Blood Count 5.7 CUMM 4.8-10.8 38 Absolute Neutrophil Count 3.8 38 Atypical Lymph 1 % 0-6 38 Anisocytosis SLIGHT 38 Hematocrit 40 % Low 42-52 38 Hemoglobin 13.8 g/dL Low 14.0-18.0 38 Eosenophil 1 % 0-6 38 Lymphocyte 19 % 5-47 38 Mean Corpuscular HGB Cone 35 g/dL 32-36 38 Mean Corpuscular Hemoglob 31 pg 27-31 38 Mean Corpuscular Volume 90 um3 80-94 38 Monocyte 12 % 0-13 38 Mean Platelet Volume 7.2 um3 Low 7.4-10.4 38 Platelet Count 278 CUMM 150-450 38 Polysegmented Neutrophil 67 % 38-83 38 Red Cell Count 4.45 CUMM Low 4.6-6.2 38 Redcell Distribution WDTH 13 % 10.5-15 38 Comp Metabolic Panel 05/29/2006 One Over Creatinine 1.25 38 Anion Gap 8.0 mmol/L 2-11 38, 68 Albumin/Globulin Ratio 1.8 1-3 38 Albumin 4.4 GM/DL 3.6-5.4 38 Alkaline Phosphatase 82 U/L 39-117 38 Alt (SGPT) 23 U/L 17-63 38 Ast (Sgot) 23 U/L 12-42 38 BUN 10 mg/dL 6-24 38 Calcium 9.5 mg/dL 8.7-10.2 38 Chloride 102 mmol/L 101-111 38 Co2 (Carbon Dioxide) 29.0 mmol/L 22-32 38 Globulin 2.4 GM/DL 2-4 38 Glucose 92 mg/dL 70-105 38 Potassium 4.2 mmol/L 3.5-5.0 38 Sodium 139 mmol/L 135-145 38 Bilirubin Total 0.6 mg/dL 0.4-1.5 38 Total Protein 6.8 GM/DL 6.2-8.1 38 BUN/Creatinine Ratio 12.5 8-20 38 Creatinine 0.8 mg/dL 0.5-1.4 38 Liver Function Panel 05/29/2006 Bilirubin Direct 0.1 mg/dL 0.1-0.5 38 Indirect Bilirubin 0.5 mg/dL 0.1-0.75 38 Laboratory test finding 05/29/2006 TSH 1.44 MIU/ML 0.34-5.60 38 CBC With Electronic Diff Stat 02/05/2006 White Blood Count 6.3 CUMM 4.8- 10.8 Abs Basophils 0 0-0.2 Abs Eosinophils 0.1 0-0.6 Absolute Neutrophil Count 3.8 1.5-7.7 Abs Lymphs 1.6 1.0-4.8 Abs Mononuclear 0.7 0-0.8 Basophil % 0.5 % 0-2 Hematocrit 39 % Low 42-52 Hemoglobin 13.6 g/dL Low 14.0-18.0 Eosinophil % 2.0 % 0-6 Gran % 60.8 % 38-83 Lymph % 26.3 % 20-45 Mean Corpuscular HGB Cone 34 g/dL 32-36 Mean Corpuscular Hemoglob 32 pg High 27-31 Mean Corpuscular Volume 93 um3 80-94 Mean Platelet Volume 7.3 um3 Low 7.4-10.4 Mononuclear % 10.4 % High 1-9 Platelet Count 254 CUMM 150-450 Red Cell Count 4.24 CUMM Low 4.6-6.2 Redcell Distribution WDTH 12 % 10.5-15 Basic Metabolic Panel Stat 02/05/2006 One Over Creatinine 1.66 Anion Gap 8.0 mmol/L 2-11 69 BUN 8 mg/dL 6-24 Calcium 9.0 mg/dL 8.7-10.2 Chloride 98 mmol/L Low 101-111 Co2 (Carbon Dioxide) 28.0 mmol/L 22-32 Glucose 102 mg/dL 70-105 Potassium 3.8 mmol/L 3.5-5.0 Sodium 134 mmol/L Low 135-145 BUN/Creatinine Ratio 13.3 8-20 Creatinine 0.6 mg/dL 0.5-1.4 Urinalysis W/Microscopic 02/05/2006 Ua Color STRAW Appearance-Urine CLEAR Bilirubin-Ur NEGATIVE Negative Blood-Urine 1+ Negative Epith Cells-Ur FEW Esterase-Urine NEGATIVE Negative Glucose-Urine NEGATIVE Negative Ketones-Urine NEGATIVE Negative Nitrite NEGATIVE Negative PH-Urine 6.5 5-9 Protein-Urine NEGATIVE Negative [id number] NEGATIVE Negative Specific Cha[place]in-Ur 1.006 Low 1.010-1.030 Amorphous Sed-U TRACE Bacteria-Urine 1+ Mucus Urine TRACE RBC-Urine 5-10 0-2 WBC-Urine FEW 0-5 Laboratory test finding 02/05/2006 Lamotrigine 6.8 g/mL 1.0-14.0 70 Urine Culture And 01/28/2006 Urine Culture SCANT NORMAL URE 71 Sensitivites Sensitivi <SEE NOTE> CBC With Electronic 01/28/2006 White Blood Count 8.7 CUMM 4.8-10.8 Diff Stat Abs Basophils 0 0-0.2 Abs Eosinophils 0.1 0-0.6 Absolute Neutrophil Count 5.5 1.5-7.7 Abs Lymphs 2.2 1.0-4.8 Abs Mononuclear 0.9 High 0-0.8 Basophil % 0.5 % 0-2 Hematocrit 41 % Low 42-52 Hemoglobin 14.1 g/dL 14.0-18.0 Eosinophil % 1.3 % 0-6 Gran % 62.5 % 38-83 Lymph % 25.2 % 20-45 Mean Corpuscular HGB Cone 34 g/dL 32-36 Mean Corpuscular Hemoglob 32 pg High 27-31 Mean Corpuscular Volume 92 um3 80-94 Mean Platelet Volume 7.2 um3 Low 7.4-10.4 Mononuclear % 10.5 % High 1-9 Platelet Count 259 CUMM 150-450 Red Cell Count 4.49 CUMM Low 4.6-6.2 Redcell Distribution WDTH 11 % 10.5-15 Basic Metabolic Panel Stat 01/28/2006 One Over Creatinine 1.42 Anion Gap 7.0 mmol/L 2-11 72 BUN 9 mg/dL 6-24 Calcium 9.5 mg/dL 8.7-10.2 Chloride 99 mmol/L Low 101-111 Co2 (Carbon Dioxide) 30.0 mmol/L 22-32 Glucose 86 mg/dL 70-105 Potassium 4.2 mmol/L 3.5-5.0 Sodium 136 mmol/L 135-145 BUN/Creatinine Ratio 12.9 8-20 Creatinine 0.7 mg/dL 0.5-1.4 Urinalysis W/Microscopic 01/28/2006 Ua Color STRAW Appearance-Urine CLEAR Bilirubin-Ur NEGATIVE Negative Blood-Urine 1+ Negative Epith Cells-Ur OCCASIONAL Esterase-Urine NEGATIVE Negative Glucose-Urine NEGATIVE Negative Ketones-Urine NEGATIVE Negative Nitrite NEGATIVE Negative PH-Urine 7.0 5-9 Protein-Urine NEGATIVE Negative [id number] NEGATIVE Negative Specific [place]-Ur 1.010 1.010-1.030 Bacteria-Urine 1+ Mucus Urine SMALL RBC-Urine 10-15 0-2 Laboratory test finding 01/06/2006 Urine Culture No growth. Urine DIP 01/06/2006 Leukocytes neg Neg Urine Nitrites neg Neg Urine pH 5 5-6 Total Protein, Urine neg Neg Urine Glucose norm Norm Urine Ketones neg Neg Urobilinogen norm Norm Urine Bilirubin neg Neg Urine Blood trace Neg Specific Chaplin na Low 1.01-1.02 Gram Neg Wolfgang Sensitivities 12/27/2005 Ampicillin 4 Ampicillin/Sublactam 4 Amikacin <=2 Aztreonam <=1 Ciprofloxacin <=0.25 Cefotetan <=4 Ceftriaxone <=1 Cefazolin <=4 Cefepime <=1 Nitrofurantoin <=16 Gentamicin <=1 Imipenem <=1 Levofloxacin <=0.25 Piperacillin <=4 Cefuroxime 4 Trimeth-Sulfa <=20 Ceftazidime <=1 Ticarcillin-Clav <=8 Tobramycin <=1 Piperacillin/Tazobactam <=4 Urine Culture And 12/26/2005 Urine Culture MANY [ESCHERICHI 38, 73 Sensitivites Sensitivi <SEE NOTE> CBC With Manual Diff 12/26/2005 White Blood Count 6.0 CUMM 4.8-10.8 38 Hematocrit 42 % 42-52 38 Hemoglobin 14.4 g/dL 14.0-18.0 38 Mean Corpuscular HGB Cone 34 g/dL 32-36 38 Mean Corpuscular Hemoglob 32 pg High 27-31 38 Mean Corpuscular Volume 94 um3 80-94 38 Mean Platelet Volume 8.3 um3 7.4-10.4 38 Platelet Count 228 CUMM 150-450 38 Polysegmented Neutrophil 70 % 38-83 38 Red Cell Count 4.52 CUMM Low 4.6-6.2 38 Redcell Distribution WDTH 13 % 10.5-15 38 Absolute Neutrophil Count 4.3 38 Anisocytosis SLIGHT 38 Band Neutrophil 2 % 0-8 38 Eosenophil 1 % 0-6 38 Lymphocyte 20 % 5-47 38 Monocyte 7 % 0-13 38 Laboratory test 12/26/2005 PSA Screening 1.40 NG/ML 0.01-4.0 38, 74 finding Liver Function Panel 12/26/2005 Bilirubin Direct < 0.1 mg/dL Low 0.1-0.5 38 Comp Metabolic Panel 12/26/2005 One Over Creatinine 1.25 38 Anion Gap 8.0 mmol/L 2-11 38, 75 Albumin/Globulin Ratio 1.8 1-3 38 Albumin 4.8 GM/DL 3.6-5.4 38 Alkaline Phosphatase 109 U/L 39-117 38 Alt (SGPT) 24 U/L 17-63 38 Ast (Sgot) 21 U/L 12-42 38 BUN 12 mg/dL 6-24 38 Calcium 9.1 mg/dL 8.7-10.2 38 Chloride 97 mmol/L Low 101-111 38 Co2 (Carbon Dioxide) 29.0 mmol/L 22-32 38 Globulin 2.6 GM/DL 2-4 38 Glucose 115 mg/dL High 70-105 38 Potassium 4.5 mmol/L 3.5-5.0 38 Sodium 134 mmol/L Low 135-145 38 Bilirubin Total 0.7 mg/dL 0.4-1.5 38 Total Protein 7.4 GM/DL 6.2-8.1 38 BUN/Creatinine Ratio 15.0 8-20 38 Creatinine 0.8 mg/dL 0.5-1.4 38 Gram Neg Wolfgang Sensitivities 09/15/2005 Ampicillin <=2 Ampicillin/Sublactam <=2 Amikacin <=2 Aztreonam <=1 Ciprofloxacin <=0.25 Cefotetan <=4 Ceftriaxone <=1 Cefazolin <=4 Cefepime <=1 Nitrofurantoin <=16 Gentamicin <=1 Imipenem <=1 Levofloxacin <=0.25 Piperacillin <=4 Cefuroxime 4 Trimeth-Sulfa <=20 Ceftazidime <=1 Ticarcillin-Clav <=8 Tobramycin <=1 Piperacillin/Tazobactam <=4 Urinalysis 09/14/2005 Ua Color YELLOW Appearance-Urine HAZY Bilirubin-Ur NEGATIVE Negative Blood-Urine 2+ Negative Esterase-Urine 1+ Negative Glucose-Urine NEGATIVE Negative Ketones-Urine NEGATIVE Negative Nitrite POSITIVE Negative PH-Urine 7.0 5-9 Protein-Urine 1+ Negative Npxlpjcrevns-Uu-UON NEGATIVE Negative Urinalysis W/Microscopic 09/14/2005 Ua Color YELLOW Appearance-Urine HAZY Bacteria-Urine 4+ Bilirubin-Ur NEGATIVE Negative Blood-Urine 2+ Negative Epith Cells-Ur MODERATE Esterase-Urine 1+ Negative Glucose-Urine NEGATIVE Negative Ketones-Urine NEGATIVE Negative Mucus Urine MOD Nitrite POSITIVE Negative PH-Urine 7.0 5-9 Protein-Urine 1+ Negative RBC-Urine 5-10 0-2 Amcxpboogizz-Cv-XBN NEGATIVE Negative Specific Chaplin-Ur 1.014 1.010-1.030 WBC-Urine 15-20 0-5 Urine Culture And 09/14/2005 Urine Culture MANY [ESCHERICHI 76 Sensitivites Sensitivi <SEE NOTE> Laboratory test 08/28/2005 Carbamazepine 10.2 g/mL 4-12 77 finding (Tegretol) Gram Neg Wolfgang 08/24/2005 Ampicillin <=2 Sensitivities Ampicillin/Sublactam <=2 Amikacin <=2 Aztreonam <=1 Ciprofloxacin <=0.25 Cefotetan <=4 Ceftriaxone <=1 Cefazolin <=4 Cefepime <=1 Nitrofurantoin <=16 Gentamicin <=1 Imipenem <=1 Levofloxacin <=0.25 Piperacillin <=4 Cefuroxime 4 Trimeth-Sulfa <=20 Ceftazidime <=1 Ticarcillin-Clav <=8 Tobramycin <=1 Piperacillin/Tazobactam <=4 Basic Metabolic Panel Stat 08/23/2005 One Over Creatinine 1.66 Anion Gap 8.0 mmol/L 2-11 78 BUN 8 mg/dL 6-24 Calcium 8.4 mg/dL Low 8.7-10.2 Chloride 96 mmol/L Low 101-111 Co2 (Carbon Dioxide) 26.0 mmol/L 22-32 Glucose 124 mg/dL High 70-105 Potassium 3.7 mmol/L 3.5-5.0 Sodium 130 mmol/L Low 135-145 BUN/Creatinine Ratio 13.3 8-20 Creatinine 0.6 mg/dL 0.5-1.4 Laboratory test 08/23/2005 Carbamazepine (Tegretol) 30.5 g/mL High 4-12 79 finding CBC With Electronic 08/23/2005 White Blood Count 12.2 CUMM High 4.8-10.8 Diff Stat Hematocrit 35 % Low 42-52 Hemoglobin 11.9 g/dL Low 14.0-18.0 Mean Corpuscular HGB Cone 34 g/dL 32-36 Mean Corpuscular Hemoglob 31 pg 27-31 Mean Corpuscular Volume 91 um3 80-94 Mean Platelet Volume 7.5 um3 7.4-10.4 Platelet Count 225 CUMM 150-450 Red Cell Count 3.81 CUMM Low 4.6-6.2 Redcell Distribution WDTH 13 % 10.5-15 Laboratory test finding 08/23/2005 Troponin-I (TnI) 0 NG/ML 0-0.06 80 CBC With Electronic Diff Stat 08/22/2005 White Blood Count 24.4 CUMM High 4.8-10.8 Hematocrit 39 % Low 42-52 Hemoglobin 13.4 g/dL Low 14.0-18.0 Mean Corpuscular HGB Cone 35 g/dL 32-36 Mean Corpuscular Hemoglob 32 pg High 27-31 Mean Corpuscular Volume 91 um3 80-94 Mean Platelet Volume 7.1 um3 Low 7.4-10.4 Platelet Count 245 CUMM 150-450 Red Cell Count 4.23 CUMM Low 4.6-6.2 Redcell Distribution WDTH 12 % 10.5-15 Urinalysis 08/22/2005 Ua Color YELLOW Appearance-Urine CLOUDY Bilirubin-Ur NEGATIVE Negative Blood-Urine 3+ Negative Esterase-Urine 2+ Negative Glucose-Urine 4+ Negative Ketones-Urine 1+ Negative Nitrite NEGATIVE Negative PH-Urine 6.0 5-9 Protein-Urine 1+ Negative Bczdfnyaokvi-Hq-MAB NEGATIVE Negative Specific Chaplin-Ur 1.014 1.010-1.030 Urinalysis W/Microscopic 08/22/2005 Ua Color YELLOW Appearance-Urine CLOUDY Bacteria-Urine 4+ Bilirubin-Ur NEGATIVE Negative Blood-Urine 3+ Negative Epith Cells-Ur OCCASIONAL Esterase-Urine 2+ Negative Glucose-Urine 4+ Negative Ketones-Urine 1+ Negative Nitrite NEGATIVE Negative PH-Urine 6.0 5-9 Protein-Urine 1+ Negative RBC-Urine 5-10 0-2 Lyvufnferkhp-Ye-PSH NEGATIVE Negative Specific Chaplin-Ur 1.014 1.010-1.030 WBC-Urine 25-30 0-5 Basic Metabolic Panel Stat 08/22/2005 One Over Creatinine 1.66 Anion Gap 8.0 mmol/L 2-11 81 BUN 7 mg/dL 6-24 Calcium 8.7 mg/dL 8.7-10.2 Chloride 93 mmol/L Low 101-111 Co2 (Carbon Dioxide) 28.0 mmol/L 22-32 Glucose 94 mg/dL 70-105 Potassium 3.9 mmol/L 3.5-5.0 Sodium 129 mmol/L Low 135-145 BUN/Creatinine Ratio 11.7 8-20 Creatinine 0.6 mg/dL 0.5-1.4 Urine Culture 08/22/2005 Urine Culture MANY [ESCHERICHI <SEE 82 Sensitivi Sensitivi NOTE> Urine DIP 06/24/2004 Leukocytes NEG Neg Urine Nitrites NEG Neg Urine pH 5 5-6 Total Protein, Urine NL Neg Urine Glucose NL Norm Urine Ketones NL Neg Urobolinogen NL Norm Urine Bilirubin NL Neg Urine Blood NL Neg Specific Chaplin N/A Low 1.01-1.02 Laboratory test finding 06/21/2004 TSH 1.24 MIU/ML 0.34-5.60 Lipid Profile 06/21/2004 Cholesterol/HDL Ratio 3.11 AVERAGE 1-4.97 (Trig/Chol/HDL) Cholesterol 165 mg/dL Less Than 200 83 Triglyceride 76 mg/dL 40-200 High Density Lipoprotein 53 mg/dL 40-60 Low Density Lipoprotein 97 mg/dL Less Than 100 84 Comp Metabolic Panel 06/21/2004 Anion Gap 7.0 mmol/L 2-11 85 Albumin/Globulin Ratio 1.8 1-3 Albumin 4.3 GM/DL 3.6-5.4 Alkaline Phosphatase 98 U/L 39-117 Alt (SGPT) 24 U/L 17-63 Ast (Sgot) 21 U/L 12-42 BUN 8 mg/dL 6-24 Calcium 9.1 mg/dL 8.7-10.2 Chloride 94 mmol/L Low 101-111 Co2 (Carbon Dioxide) 32.0 mmol/L 22-32 Creatinine 0.6 mg/dL 0.5-1.4 Globulin 2.4 GM/DL 2-4 Glucose 110 mg/dL High 70-105 Potassium 4.7 mmol/L 3.5-5.0 Sodium 133 mmol/L Low 135-145 Bilirubin Total 0.7 mg/dL 0.4-1.5 Total Protein 6.7 GM/DL 6.2-8.1 BUN/Creatinine Ratio 13.3 8-20 CBC With Electronic Diff 06/21/2004 White Blood Count 6.2 CUMM 4.8-10.8 Abs Basophils 0 0-0.2 Abs Eosinophils 0.4 0-0.6 Abs Grans 3.5 1.5-7.7 Abs Lymphs 1.7 1.0-4.8 Abs Mononuclear 0.6 0-0.8 Basophil % 0.3 % 0-2 Hematocrit 41 % Low 42-52 Hemoglobin 14.0 g/dL 14.0-18.0 Eosinophil % 6.6 % High 0-6 Gran % 56.4 % 38-83 Lymph % 27.4 % 20-45 Mean Corpuscular HGB Cone 35 g/dL 32-36 Mean Corpuscular Hemoglob 32 pg High 27-31 Mean Corpuscular Volume 94 um3 80-94 Mean Platelet Volume 7.8 um3 7.4-10.4 Mononuclear % 9.3 % High 1-9 Platelet Count 243 CUMM 150-450 Red Cell Count 4.32 CUMM Low 4.6-6.2 Redcell Distribution WDTH 12 % 10.5-15 BMP - Basic Metabolic Panel 11/29/2003 Creatinine 0.7 Sodium 131 BUN - Urea Nitrogen 7 1 [id number] 2 SEE RESULT BELOW Name: KULWANT GALLAGHER : [address]: Jessica Man MD Acct: [id number] Unit: [id number] AGE: 51 Location: [facility] Re07/10/17 SEX: M Status: REG REF SPEC: [id number] AMANDA: 07/10/17 [facility] DR: Jessica Man MD REQ: [id number] RECD: 07/10/17 STATUS: COMP _ SOURCE: URINE SPDESC: ORDERED: Urine Culture COMMENTS: [id number] Procedure Result Reported Site Urine Culture Final 07/12/17- 0800 ML Organism 1 ESCHERICHIA COLI [place] Count >100,000 (Many) CFU/ML 1. ESCHERICHIA COLI M.I.C. RX --------- ------ Ampicillin 4 S Cefazolin <=4 S Cefepime <=1 S Ceftriaxone <=1 S Ciprofloxacin <=0.25 S Gentamicin <=1 S Levofloxacin <=0.12 S Meropenem <=0.25 S Nitrofurantoin <=16 S Tetracycline <=1 S Pipercillin/Tazobactam <=4 S Trimethoprim/Sulfamethoxazole <=20 S Amoxicillin/Clavulanic Acid 4 S Aztreonam <=1 S Contact the Microbiology Department for any additional antibiotic reporting. * ML - [facility] . END OF REPORT DEPARTMENT OF PATHOLOGY, [address] [place] [address] Reji Mcdonald M.D. Director [facility] # [id number] 07/15/17 (ThuJul 15) 09:20 PM JESSICALISA COBIANPRECIOUS His culture is sensitive to Bactrim as prescribed. 4 ADDITIONAL INFORMATION This test was developed and its performance characteristics determined by [facility] in a manner consistent with CLIA requirements. This test has not been cleared or approved by the U.S. Food and Drug Administration. Test Performed by: [facility] - [address] [address] 5 ADDITIONAL INFORMATION This test was developed and its performance characteristics determined by [facility] in a manner consistent with CLIA requirements. This test has not been cleared or approved by the U.S. Food and Drug Administration. Test Performed by: [facility] - [address] [address] 6 *Ascorbic acid is present which may interfere with detection of blood. 7 SEE RESULT BELOW Name: KULWANT GALLAGHER : [address]: Enrrique Ferguson MD Acct: [id number] Unit: [id number] AGE: 51 Location: ED Re01/16/17 SEX: M Status: DEP ER SPEC: [id number] AMANDA: 01/16/[address]: Meena MOYA REQ: [id number] RECD: 01/16/17 STATUS: MALIK VIVAS DR: Neftaly Ferguson MD _ SOURCE: URINE [facility]: ORDERED: Urine Culture Procedure Result Reported Site Urine Culture Final 01/18/17- 0754 ML Organism 1 ESCHERICHIA COLI [place] Count >100,000 (Many) CFU/ML 1. ESCHERICHIA COLI M.I.C. RX --------- ------ Ampicillin <=2 S Cefazolin <=4 S Cefepime <=1 S Ceftriaxone <=1 S Ciprofloxacin <=0.25 S Gentamicin <=1 S Levofloxacin <=0.12 S Meropenem <=0.25 S Nitrofurantoin <=16 S Tetracycline <=1 S Pipercillin/Tazobactam <=4 S Trimethoprim/Sulfamethoxazole <=20 S Amoxicillin/Clavulanic Acid <=2 S Aztreonam <=1 S Contact the Microbiology Department for any additional antibiotic reporting. * ML - MAIN LAB ([facility]) . END OF REPORT * ML=Testing performed at Main Lab DEPARTMENT OF PATHOLOGY, [address] [place] [address] Reji Mcdonald M.D. Director [facility] # [id number] Please note: The following may produce a false positive D Dimer test: - Rheumatoid factor greater than 60 IU/ml - Plasma hemoglobin greater than 0.05 gm/dl - Bilirubin greater than 50 mg/dl - Lipids greater than 1000 mg/dl - FDP greater than 20 ug/ml 9 Because ethnic data is not always readily available, this report includes an eGFR for both -Americans and non- Americans. The National Kidney Disease Education Program (NKDEP) does not endorse the use of the MDRD equation for patients that are not between the ages of 18 and 70, are , have extremes of body size, muscle mass, or nutritional status, or are non- or non-. According to the National Kidney Foundation, irrespective of diagnosis, the stage of the disease is based on the level of kidney function: Stage Description GFR(mL/min/1.73 m(2)) 1 Kidney damage with normal or decreased GFR 90 2 Kidney damage with mild decrease in GFR 60-89 3 Moderate decrease in GFR 30-59 4 Severe decrease in GFR 15-29 5 Kidney failure <15 (or dialysis) 10 Therapeutic target for the treatment of diabetes Mellitus patients is <7% HBA1C, and in selective patients <6.0%.Please refer to [place] [employer] Diabetic care guidelines for further information. 11 Because ethnic data is not always readily available, this report includes an eGFR for both -Americans and non- Americans. The National Kidney Disease Education Program (NKDEP) does not endorse the use of the MDRD equation for patients that are not between the ages of 18 and 70, are , have extremes of body size, muscle mass, or nutritional status, or are non- or non-. According to the National Kidney Foundation, irrespective of diagnosis, the stage of the disease is based on the level of kidney function: Stage Description GFR(mL/min/1.73 m(2)) 1 Kidney damage with normal or decreased GFR 90 2 Kidney damage with mild decrease in GFR 60-89 3 Moderate decrease in GFR 30-59 4 Severe decrease in GFR 15-29 5 Kidney failure <15 (or dialysis) 12 Because ethnic data is not always readily available, this report includes an eGFR for both -Americans and non- Americans. The National Kidney Disease Education Program (NKDEP) does not endorse the use of the MDRD equation for patients that are not between the ages of 18 and 70, are , have extremes of body size, muscle mass, or nutritional status, or are non- or non-. According to the National Kidney Foundation, irrespective of diagnosis, the stage of the disease is based on the level of kidney function: Stage Description GFR(mL/min/1.73 m(2)) 1 Kidney damage with normal or decreased GFR 90 2 Kidney damage with mild decrease in GFR 60-89 3 Moderate decrease in GFR 30-59 4 Severe decrease in GFR 15-29 5 Kidney failure <15 (or dialysis) 13 RUN DATE: 09/06/14 [facility] LAB LIVE PAGE 1 RUN TIME: [address] [place] [address] Specimen Inquiry Name: KULWANT GALLAGHER : [address]: Mc Vitale MD Acct: [id number] Unit: [id number] AGE: 48 Location: ENDO Re09/05/14 SEX: M Status: REG REF SPEC: [id number] AMANDA: 09/05/14- SUBM DR: Mc Vitale MD REQ: [id number] RECD: 09/05/14 STATUS: AMISH VIVAS DR: Neftaly Wagner MD _ ORDERED: LEVEL IV FINAL DIAGNOSIS Colon, mid sigmoid, biopsy: -- Hyperplastic polyp. CLINICAL HISTORY Screening colonoscopy with rectal bleeding POST-OPERATIVE DIAGNOSIS Screening colonoscopy to cecum with ease - one nodule at 75; internal hemorrhoids - mild to minimal. Sigmoid nodule, internal hemorrhoids, bright red blood per rectum consistent with internal hemorrhoids GROSS DESCRIPTION The specimen is received in formalin labeled, Biopsy Mid Sigmoid Colon Polyp , and consists of a 0.2 x 0.2 x 0.2 cm navas-pink polypoid soft tissue fragment, which is submitted entirely in one cassette. Signed (signature on file) Genesis Vines MD 1404 END OF REPORT * ML=Testing performed at Main Lab DEPARTMENT OF PATHOLOGY, [address] [place] [address] Reji Mcdonald M.D. Director [facility] # [id number] RUN DATE: 07/19/14 [facility] LAB LIVE PAGE 1 RUN TIME: 1003 [address] [facility], [place], [place] [address] Specimen Inquiry Name: KULWANT GALLAGHER Murray : [address]: Jairo Garcia NP Acct: [id number] Unit: [id number] AGE: 48 Location: [facility] Re07/17/14 SEX: M Status: REG REF SPEC: [id number] AMANDA: 07/17/14-[address]: Jairo Garcia NP REQ: [id number] RECD: 07/17/14 STATUS: COMP _ SOURCE: URINE SPDESC: ORDERED: Urine Culture QUERIES: Provider Requisition # [id number] Procedure Result Verified Site Urine Culture Final 07/19/14- 1003 L No Growth Day 2 (<1,000 CFU/mL) END OF REPORT * ML=Testing performed at Main Lab DEPARTMENT OF PATHOLOGY, [address] [place] [address] Reji Mcdonald M.D. Director [facility] # [id number] FASTING 16 Because ethnic data is not always readily available, this report includes an eGFR for both -Americans and non- Americans. The National Kidney Disease Education Program (NKDEP) does not endorse the use of the MDRD equation for patients that are not between the ages of 18 and 70, are , have extremes of body size, muscle mass, or nutritional status, or are non- or non-. According to the National Kidney Foundation, irrespective of diagnosis, the stage of the disease is based on the level of kidney function: Stage Description GFR(mL/min/1.73 m(2)) 1 Kidney damage with normal or decreased GFR 90 2 Kidney damage with mild decrease in GFR 60-89 3 Moderate decrease in GFR 30-59 4 Severe decrease in GFR 15-29 5 Kidney failure <15 (or dialysis) 17 Test Performed by: [address] [address] Grain Merchandiser: Adis Reyes III, M.D. 18 Test Performed by: [facility] [address], [place] [address] Grain Merchandiser: Desire Enamorado, Ph.D. 19 Test Performed by: [place] [address] Grain Merchandiser: Adis Reyes III, M.D. 20 Test Performed by: [address] [address] Grain Merchandiser: Adis Reyes III, M.D. 21 The detection limit for VALPROIC ACID is 10.0 mcg/ml . Values less than 10.0 mcg/ml cannot be accurately measured. 22 A metabolite of Naproxen, O-desmethylnaproxen, has been shown to interfere with the Jendrcanik-Nevis method for measuring total bilirubin. Samples from patients who have taken Naproxen have shown spurious elevation in total bilirubin levels. 23 Please note updated reference range, effective 11/29/09 24 Anion gap measurement may be of limited value in the presence of any alkalosis, especially in a combined acid base disorder. . 25 Because ethnic data is not always readily available, this report includes an eGFR for both -Americans and non- Americans. The National Kidney Disease Education Program (NKDEP) does not endorse the use of the MDRD equation for patients that are not between the ages of 18 and 70, are , have extremes of body size, muscle mass, or nutritional status, or are non- or non-. According to the National Kidney Foundation, irrespective of diagnosis, the stage of the disease is based on the level of kidney function: Stage Description GFR(mL/min/1.73 m(2)) 1 Kidney damage with normal or decreased GFR 90 2 Kidney damage with mild decrease in GFR 60-89 3 Moderate decrease in GFR 30-59 4 Severe decrease in GFR 15-29 5 Kidney failure <15 (or dialysis) 26 Test Performed by: [address] [address] Grain Merchandiser: Adis Reyes III, M.D. 27 Test Performed by: [address] [address] Grain Merchandiser: Adis Reyes III, M.D. 28 RUN DATE: 11/08/11 [facility] NMI LIVE PAGE 1 RUN TIME: 1248 Specimen Inquiry RUN USER: INTERFACE Name: KULWANT GALLAGHER Wilmar#: [id number] Status: REG REF Re11/06/11 Age/Sex: 45/M Unit#: [id number] Location: [facility] : 65 SPEC #: [id number] AMANDA: 11/06/11 STATUS: COMP REQ #: [id number] RECD: 11/06/11 [facility] [address]: Neftaly Wagner MD SOURCE: URINE ENTR: 11/06/[address]: EDEN: ORDERED: URINE C S COMMENTS: SPECIMEN DESCRIPTION: URINE, CLEAN CATCH QUERIES: MEDENT MEDENT REQUISITION # [id number] SPECIMEN DESCRIPTION: URINE, CLEAN CATCH ACT WKST: UR 11/08/11 #1 Procedure Result Verified Site > URINE CULTURE SENSITIVI Final 11/08/11- 1248 ML SPECIMEN CONTAINS NORMAL URETHRAL OR PERINEAL BRITTANY AND DOES NOT SUGGEST URINARY TRACT INFECTION ML - [facility] Permit #[id number] [address] [place] [address] DEPARTMENT OF PATHOLOGY, [address] [place] [address] [facility] Permit #[id number] Reji Mcdonald M.D. Director Omar Ba M.D. [employer]eder 29 RUN DATE: 08/22/11 [facility] NMI LIVE PAGE 1 RUN TIME: 941 Specimen Inquiry RUN USER: INTERFACE Name: KULWANT GALLAGHER Status: REG REF Re08/20/11 Age/Sex: 45/M Unit#: [id number] Location: [facility] : 65 SPEC #: [id number] AMANDA: 08/20/11 STATUS: MALIK REQ #: [id number] RECD: 08/20/[address]: Neftaly Wagner MD SOURCE: URINE ENTR: 08/20/[address]: EDEN: ORDERED: URINE C S QUERIES: MEDENT REQUISITION # [id number] SPECIMEN DESCRIPTION: URINE, CLEAN CATCH ACT WKST: UR 08/22/11 #1 Procedure Result Verified Site > URINE CULTURE SENSITIVI Final 08/22/11- 941 ML SPECIMEN CONTAINS NORMAL URETHRAL OR PERINEAL BRITTANY AND DOES NOT SUGGEST URINARY TRACT INFECTION - [facility] Permit #[id number] [facility] [employer] [place] [address] DEPARTMENT OF PATHOLOGY, [facility] [employer] [place], [place] [address] [facility] Permit #[id number] Reji Mcdonald M.D. Director Omar Ba M.D. [employer]eder 30 Anion gap measurement may be of limited value in the presence of any alkalosis, especially in a combined acid base disorder. . 31 A metabolite of Naproxen, O-desmethylnaproxen, has been shown to interfere with the Jendrassik-Trina method for measuring total bilirubin. Samples from patients who have taken Naproxen have shown spurious elevation in total bilirubin levels. 32 Because ethnic data is not always readily available, this report includes an eGFR for both -Americans and non- Americans. The National Kidney Disease Education Program (NKDEP) does not endorse the use of the MDRD equation for patients that are not between the ages of 18 and 70, are , have extremes of body size, muscle mass, or nutritional status, or are non- or non-. According to the National Kidney Foundation, irrespective of diagnosis, the stage of the disease is based on the level of kidney function: Stage Description GFR(mL/min/1.73 m(2)) 1 Kidney damage with normal or decreased GFR 90 2 Kidney damage with mild decrease in GFR 60-89 3 Moderate decrease in GFR 30-59 4 Severe decrease in GFR 15-29 5 Kidney failure <15 (or dialysis) 33 -- REFERENCE VALUE -- 25-HYDROXY D TOTAL (D2+D3) Optimum levels in the normal population are 25-80 Test Performed by: [facility] Dpt of Lab Med and Pathology [address] [place] [address] Grain Merchandiser: Adis Reyes III, M.D. 34 -- REFERENCE VALUE -- 25-HYDROXY D TOTAL (D2+D3) Optimum levels in the normal population are 25-80 Test Performed by: [facility] Dpt of Lab Med and Pathology [address] [place] [address] Grain Merchandiser: Adis Reyes III, M.D. 35 CHOLESTEROL INTERPRETATION: Desirable: Less than 200 MG/DL Borderline-High Risk: 200-239 MG/DL High-Risk: 240 MG/DL and over 36 HDL INTERPRETATION: Undesirable: High Risk: Less than 40 MG/DL Desirable: Low Risk: Greater than 60 MG/DL 37 LDL INTERPRETATION: Low Risk Optimal Level: LDL Less than 100 MG/DL Near or Above Optimal: LDL 100-129 MG/DL Borderline High Risk: LDL 130-159 MG/DL High Risk: LDL 160-189 MG/DL Very High Risk: LDL Greater than 189 MG/DL 38 [place] [address] 39 STAPH HAEMOLYTICUS 50^25-50,000 ORGANISMS/ML (MODERATE)^CCU NORMAL BRITTANY 50^25-50,000 ORGANISMS/ML (MODERATE)^CCU 40 Anion gap measurement may be of limited value in the presence of any alkalosis, especially in a combined acid base disorder. . 41 Note change in reference range as of 12/30/07. The change was based on recommendations from the [place] [employer]. 42 Please note change in reference range effective 07 . 43 A metabolite of Naproxen, O-desmethylnaproxen, has been shown to interfere with the Jendrassik-Trina method for measuring total bilirubin. Samples from patients who have taken Naproxen have shown spurious elevation in total bilirubin levels. 44 Because ethnic data is not always readily available, this report includes an eGFR for both -Americans and non- Americans. The National Kidney Disease Education Program (NKDEP) does not endorse the use of the MDRD equation for patients that are not between the ages of 18 and 70, are , have extremes of body size, muscle mass, or nutritional status, or are non- or non-. According to the [employer], irrespective of diagnosis, the stage of the disease is based on the level of kidney function: Stage Description GFR(mL/min/1.73 m(2)) 1 Kidney damage with normal or decreased GFR 90 2 Kidney damage with mild decrease in GFR 60-89 3 Moderate decrease in GFR 30-59 4 Severe decrease in GFR 15-29 5 Kidney failure <15 (or dialysis) 45 SCANT NORMAL URETHRAL OR PERINEAL BRITTANY 46 -- REFERENCE VALUE -- 25-HYDROXY D TOTAL (D2+D3) Optimum levels in the normal population are 25-80 Test Performed by: [facility] Dpt of Lab Med and Pathology [address] [place] [address] Grain Merchandiser: Adis Reyes III, M.D. 47 -- REFERENCE VALUE -- 1.0-4.0 (Trough) Test Performed by: [facility] Dpt of Lab Med and Pathology [address] [place] [address] Grain Merchandiser: Adis Reyes III, M.D. 48 -- REFERENCE VALUE -- <40 (Peak) 6-10 (Trough) Test Performed by: [facility] Dpt of Lab Med and Pathology [address] [place] [address] Grain Merchandiser: Adis Reyes III, M.D. 49 The detection limit for VALPROIC ACID is 10.0 mcg/ml . Values less than 10.0 mcg/ml cannot be accurately measured. . 50 -- REFERENCE VALUE -- 1.0-4.0 (Trough) Test Performed by: [facility] Dpt of Lab Med and Pathology [address] [place] [address] Grain Merchandiser: Adis Reyes III, M.D. 51 The detection limit for VALPROIC ACID is 10.0 mcg/ml . Values less than 10.0 mcg/ml cannot be accurately measured. . 52 -- REFERENCE VALUE -- 1.0-4.0 (Trough) Test Performed by: [facility] Dpt of Lab Med and Pathology [address] [place] [address] Grain Merchandiser: Adis Reyes III, M.D. 53 The detection limit for VALPROIC ACID is 10.0 mcg/ml . Values less than 10.0 mcg/ml cannot be accurately measured. . 54 -- REFERENCE VALUE -- 1.0-4.0 (Trough) Test Performed by: [facility] Dpt of Lab Med and Pathology [address] [place], [place] [id number] Grain Merchandiser: Adis Reyes III, M.D. 55 Lymphopenia % 56 Anion gap measurement may be of limited value in the presence of any alkalosis, especially in a combined acid base disorder. . 57 Note change in reference range as of 12/30/07. The change was based on recommendations from the [place] [employer]. 58 Please note change in reference range effective 07 . 59 The detection limit for VALPROIC ACID is 10.0 mcg/ml . Values less than 10.0 mcg/ml cannot be accurately measured. . 60 Anion gap measurement may be of limited value in the presence of any alkalosis, especially in a combined acid base disorder. . 61 Please note change in reference range effective 07 . 62 Anion gap measurement may be of limited value in the presence of any alkalosis, especially in a combined acid base disorder. . 63 Anion gap measurement may be of limited value in the presence of any alkalosis, especially in a combined acid base disorder. . 64 -- REFERENCE VALUE -- 1.0-4.0 (Trough) Test Performed by: [facility] Dpt of Lab Med and Pathology [address] [place] [id number] Grain Merchandiser: Adis Reyes III, M.D. 65 FINAL: NO GROWTH DAY 2 (<1,000 CFU/mL) 66 Anion gap measurement may be of limited value in the presence of any alkalosis, especially in a combined acid base disorder. . 67 New Reference Range and Interpretation effective 02/11/02 TnI (ng/ml) INTERPRETATION <0.06 ng/ml NOT SUPPORTIVE OF DIAGNOSIS OF PR 0.06 - 0.50 ng/ml INDETERMINATE: SUGGEST SERIAL STUDIES IF CLINICALLY INDICATED. > 0.5 ng/ml CONSISTENT WITH DIAGNOSIS OF PR . 68 Anion gap measurement may be of limited value in the presence of any alkalosis, especially in a combined acid base disorder. . 69 Anion gap measurement may be of limited value in the presence of any alkalosis, especially in a combined acid base disorder. . 70 THERAPEUTIC RANGE FOR LAMOTRIGINE: 1 - 14 UG/ML (FOR PATIENTS RECEIVING DOSES OF 50 - 400 MG/DAY) THE PERFORMANCE CHARACTERISTICS OF THIS TEST WERE ESTABLISHED THROUGH VALIDATION BY [facility], AND NO APPROVAL IS REQUIRED BY THE U.S. FOOD AND DRUG ADMINISTRATION (FDA). [facility] IS REGULATED UNDER THE CLINICAL LABORATORY IMPROVEMENT AMENDMENTS OF 1988 ("CLIA") QUALIFIED TO PERFORM HIGH COMPLEXITY CLINICAL TESTING. TEST PERFORMED BY: [employer]. [address] [place] [id number] 71 SCANT NORMAL URETHRAL OR PERINEAL BRITTANY 10^1-10,000 ORGANISMS/ML (FEW)^CCU 72 Anion gap measurement may be of limited value in the presence of any alkalosis, especially in a combined acid base disorder. . 73 MANY [ESCHERICHIA COLI] >100^>100,000 ORGANISMS/ML^CCU ESCHERICHIA COLI 74 * SERUM LEVELS OF PSA MEASURED USING THE BASILIA MARCO ANTONIO ACCESS HYBRITECH IMMUNOASSAY SHOULD NOT BE INTERPRETED ABSOLUTE EVIDENCE OF THE PRESENCE OR ABSENCE OF DISEASE. THE PSA VALUE SHOULD BE USED IN CONJUNCTION WITH OTHER PERTINENT CLINICAL DIAGNOSTIC PROCEDURES. 75 Anion gap measurement may be of limited value in the presence of any alkalosis, especially in a combined acid base disorder. . 76 MANY [ESCHERICHIA COLI] >100^>100,000 ORGANISMS/ML^CCU ESCHERICHIA COLI 77 The detection limit for CARBAMAZEPINE is 2.0 mcg/ml . Values less than 2.0 mcg/ml cannot be accurately measured. . 78 Anion gap measurement may be of limited value in the presence of any alkalosis, especially in a combined acid base disorder. . 79 The detection limit for CARBAMAZEPINE is 2.0 mcg/ml . Values less than 2.0 mcg/ml cannot be accurately measured. . 80 New Reference Range and Interpretation effective 02/11/02 TnI (ng/ml) INTERPRETATION <0.06 ng/ml NOT SUPPORTIVE OF DIAGNOSIS OF PR 0.06 - 0.50 ng/ml INDETERMINATE: SUGGEST SERIAL STUDIES IF CLINICALLY INDICATED. > 0.5 ng/ml CONSISTENT WITH DIAGNOSIS OF PR . 81 Anion gap measurement may be of limited value in the presence of any alkalosis, especially in a combined acid base disorder. . 82 MANY [ESCHERICHIA COLI] >100^>100,000 ORGANISMS/ML^CCU ESCHERICHIA COLI 83 Classification: Desirable . 84 CALCULATED LDL APPROXIMATES THE VALUE OF A DIRECT LDL MEASUREMENT. Classification: Optimal Level . 85 Anion gap measurement may be of limited value in the presence of any alkalosis, especially in a combined acid base disorder. . Procedures Date CPT Code Description Status Comment 08/09/2014 Colonoscopy Completed One hyperplastic polyp, internal hemorrhoids. Repeat 202410/16/2011 62891 Removal-Impacted Cerumen Completed 02/12/2006 83364 Destruction,Premalignant Completed Lesion,1St Lesion 12/29/2005 25964 Destruction,Premalignant Completed Lesion,1St Lesion 12/17/2005 06626 Destruction,Premalignant Completed Lesion,1St Lesion 07/14/2005 00895 I&D Of Abscess Completed Encounters Type Date Location Provider CPT E/M Dx Office Visit 08/27/2017 4:15p Main Office Neftaly Wagner M.D. G0439 Z00.00 G40.909 Q03.9 N31.9 E55.9 Office Visit 07/10/2017 9:30a [place] [address] N39.0 Office Visit 01/28/2017 4:00p [place] [address] K64.8 N39.0 Office Visit 07/29/2016 10:30a Main Office Neftaly Wagner M.D. G0439 Z00.00 G40.909 Q03.9 N31.9 Z23 Office Visit 06/20/2016 4:00p Main Office CHRISTIANO Quiles 58934 S70.02xA Office Visit 04/15/2016 4:00p Main Office Neftaly Wagner M.D. 02834 R73.01 Office Visit 04/01/2016 1:30p Main Office Marcel Priceshmuel TOBIN, ROSALIND 69026 H00.015 Office Visit 01/02/2016 11:00a Main Office Neftaly Wagner M.D. 18915 S20.222A Office Visit 06/27/2015 8:45a Main Office Neftaly Wagner M.D. G0439 Z00.01 G40.909 Q03.9 N31.9 Office Visit 12/21/2014 4:15p Main Office Neftaly Wagner M.D. 61672 455.6 596.54 345.90 742.3 733.09 Office Visit 07/17/2014 10:45a Main Office CHRISTIANO Quiles 77554 578.1 781.2 Office Visit 06/20/2014 9:30a Main Office Neftaly Wagner M.D. G0439 V70.0 345.90 596.54 742.3 733.09 Office Visit 05/24/2014 3:30p Main Office Neftaly Wagner M.D. 26389 110.1 Office Visit 02/09/2014 4:30p Main Office Neftaly Wagner M.D. 90584 373.11 Office Visit 01/10/2014 3:15p Main Office Neftaly Wagner M.D. 53688 345.90 596.54 Office Visit 06/23/2013 3:30p Main Office Neftaly Wagner M.D. 70888 742.3 345.90 596.54 733.09 Office Visit 03/11/2013 10:30a Main Office CHRISTIANO Quiles 87224 922.1 Office Visit 06/01/2012 4:00p Main Office Neftaly Wagner M.D. 41988 724.5 Office Visit 03/25/2012 2:15p Main Office Neftaly Wagner M.D. G0439 V70.0 345.90 742.3 596.54 733.09 Office Visit 11/05/2011 11:30a Main Office Neftaly Wagner M.D. 69365 345.90 742.3 599.70 Office Visit 03/25/2011 2:15p Main Office Neftaly Wagner M.D. G0438 V70.0 742.3 345.90 733.09 596.54 Office Visit 05/16/2010 3:30p Main Office Jairo Garcia [facility] 68169 920 Office Visit 03/22/2010 9:00a Main Office Neftaly Wagner M.D. 30112 V70.0 742.3 345.90 596.54 733.09 Office Visit 02/22/2009 2:15p Main Office Neftaly Wagner M.D. 05916 742.3 345.90 596.54 781.2 733.09 Office Visit 02/22/2008 9:45a Main Office Neftaly Wagner M.D. 72210 345.50 596.54 733.09 781.2 Office Visit 10/28/2007 10:45a Main Office Neftaly Wagner M.D. 32990 078.10 345.50 Office Visit 05/13/2007 10:00a Main Office Jairo Garcia [facility] 82733 455.3 Office Visit 03/11/2007 11:00a Main Office Neftaly Wagner M.D. 54330 780.4 Office Visit 02/16/2007 9:45a Main Office Neftaly Wagner M.D. 87739 V70.0 596.54 733.09 345.50 Office Visit 02/10/2006 9:45a Main Office Neftaly Wagner M.D. 47706 V70.0 078.10 596.54 345.50 V06.8 733.09 V04.81 Office Visit 01/06/2006 3:30p Main Office Jose Francisco Del Rosario 05046 771.82 599.0 345.50 Office Visit 08/28/2005 2:15p Main Office Neftaly Wagner M.D. 03495 345.50 Office Visit 08/05/2005 11:30a Main Office Neftaly Wagner M.D. 08471 466.0 Office Visit 02/06/2005 1:15p Main Office Neftaly Wagner M.D. 08129 V70.0 345.50 733.09 596.54 Office Visit 06/21/2004 2:30p Main Office Neftaly Wagner M.D. 27817 780.79 Office Visit 03/29/2004 3:45p Main Office Neftaly Wagner M.D. 72539 719.47 Office Visit 02/06/2004 8:45a Main Office Neftaly Wagner M.D. 98599 V70.0 733.09 345.50 724.2 596.54 Office Visit 05/17/2003 10:15a Main Office Neftaly Wagner M.D. 27377 733.09 345.50 380.4 Office Visit 02/14/2003 10:15a Main Office Neftaly Wagner M.D. 95014 733.09 345.50 380.4 Plan of Care Future Appointment(s):03/02/2018 10:45 am - Neftaly Wagner M.D. at Main [facility]/01 - Jessica Man MDN39.0 Urinary tract infection, site not specifiedNew Medication:Bactrim DS 800-160 mgComments:Symptoms and urine dip are consistent with a urinary tract infection.There are no historical or physical indicators of a complicated infection. Will treat empirically with antibiotics, while also culturing the sample to ensure that the bacterium is sensitive to this treatment. Discussed risks and benefits of this treatment. Return to care if worsening or not improving.
[2017-12-15 16:20] VITALS: BP 149/87
--- NOTE | 2017-12-15 16:48 | UC ---
Lower Extremity/Ankle HPI - HPI Summary HPI Summary: This is scribe Paul Rdz documenting for attending Javier Ramirez MD. This patient is a 52 year old M presenting to [facility] accompanied by a male with a chief complaint of left foot pain that began last night. The patient rates the pain 5/10 in severity. Patient reports ecchymosis and difficulty ambulating. Patient denies ankle pain or injury to his head. Pt reports that he fell during a firedrill last night because he slipped on the wet grass. A nurse at his assisted living facility wanted him to be sent here for an x ray. I, Dr. Ramirez, personally performed the services described in this documentation as scribed in my presence and it is both accurate and complete. - History of Current Complaint Chief Complaint: UCLowerExtremity Stated Complaint: FOOT INJURY Time Seen by Provider: 12/15/17 16:28 Hx Obtained From: Patient Onset/Duration: Sudden Onset Severity Initially: Moderate Severity Currently: Moderate Pain Intensity: 5 Pain Scale Used: 0-10 Numeric Aggravating Factor(s): Standing, Ambulation Alleviating Factor(s): Rest Able to Bear Weight: Yes - with mild distress - Allergies/Home Medications Allergies/Adverse Reactions: Allergies Allergy/AdvReac Type Severity Reaction Status Date / Time adhesive tape Allergy Intermediate redness, Uncoded 12/15/17 16:20 itching PMH/Surg Hx/FS Hx/Imm Hx Other History Of: Negative For: Anticoagulant Therapy - Surgical History Surgical History: Yes Surgery Procedure, Year, and Place: BILATERAL HIP REPLACEMENTS- orif - Family History Known Family History: Positive: Cardiac Disease - father - Social History Alcohol Use: None Substance Use Type: Prescribed Substance Use Comment - Amount & Last Used: seizure meds Smoking Status (MU): Never Smoked Tobacco Review of Systems Constitutional: Negative Skin: Bruising - left foot Motor: Other - difficulty ambulating Musculoskeletal: Other: - left foot pain All Other Systems Reviewed And Are Negative: Yes Physical Exam - Summary Physical Exam Summary: General: well-appearing, no pain distress Skin: warm, color reflects adequate perfusion, dry. No skin break on left foot. Head: normal Eyes: EOMI, DANELLE ENT: normal Neck: supple, nontender Respiratory: CTA, breath sounds present Cardiovascular: RRR Abdomen: soft, nontender Bowel: present Musculoskeletal: normal, strength/ROM intact Left foot: ecchymosis and swelling of great toe and distal medial aspect. Good ROM. Tender to palpation. Neurological: sensory/motor intact, A&O x3 Psychological: affect/mood appropriate Triage Information Reviewed: Yes Vital Signs: Initial Vital Signs Temp 98.5 F 12/15/17 16:12 Pulse 81 12/15/17 16:12 Resp 20 12/15/17 16:12 BP 149/87 12/15/17 16:12 Pulse Ox 99 12/15/17 16:12 Vital Signs Reviewed: Yes Diagnostics - Radiology Foot X Ray Radiology Interpretation Completed By: Radiologist - Negative for fracture. 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 F/U PMD NEEDED; RECHECK SOONER IF WORSE. - Differential Dx/Diagnosis Provider Diagnoses: LEFT FOOT SPRAIN Discharge - Sign-Out/Discharge Documenting (check all that apply): Patient Departure - Discharge Plan Condition: Stable Disposition: HOME Patient Education Materials: Foot Sprain (ED) Referrals: Neftaly Wagner MD [Primary Care Provider] - Additional Instructions: FOLLOW UP WITH YOUR DOCTOR IF NOT COMPLETELY IMPROVED. GET RECHECKED FOR ANY WORSENING OF YOUR CONDITION OR QUESTIONS OR CONCERNS. - Billing Disposition and Condition Condition: STABLE Disposition: Home
--- NOTE | 2017-12-15 16:59 | RAD ---
Indication: LEFT foot pain post fall. Bruising and swelling at the first and second toes. Comparison: January 28, 2006 Technique: AP, lateral, and oblique views LEFT foot. Report: Chronic pes planus deformity. Negative for dislocation. Bone density appears decreased throughout. No cortical disruption or suspicious trabecular irregularity to suggest fracture. Mild soft tissue swelling along the plantar margin of the foot. Diffuse skeletal muscle atrophy. IMPRESSION: #. Negative for fracture.
== END 2017-12-15 17:40 | disposition home or self-care (01) ==
LOC: UCEAST 16:05
DX: S93.602A Unspecified sprain of left foot, initial encounter (principal); W01.0XXA Fall on same level from slipping, tripping and stumbling without subsequent striking against object, initial encounter; Y93.89 Activity, other specified; Y92.197 Garden or yard of other specified residential institution as the place of occurrence of the external cause; Z91.048 Other nonmedicinal substance allergy status; Z96.643 Presence of artificial hip joint, bilateral; Z82.49 Family history of ischemic heart disease and other diseases of the circulatory system
CPT/HCPCS: 99211; G0463

== ENCOUNTER 2018-06-28 18:21 | Emergency (ER) | payer MEDICARE, MEDICAID ==
[2018-06-28 19:03] LABS: Influenza A Molecular POSITIVE (Negative)
[2018-06-28] MEDS ORDERED: Ibuprofen TAB* 400 MG PO ONE (19:44)
[2018-06-28] MEDS ORDERED: Acetaminophen TAB* 325 MG PO ONE (19:44)
[2018-06-28] MEDS ORDERED: NS 0.9% 1000 ML** 2,000 ML IV ONE (19:44)
[2018-06-28] MEDS ORDERED: Oseltamivir CAP* 75 MG CAP PO ONE (19:45)
[2018-06-28] MEDS ORDERED: lamoTRIgine TAB(*) 100 MG PO ONE (19:49)
[2018-06-28] MEDS ORDERED: Lacosamide TAB* 100 MG TAB PO ONE (19:49)
--- NOTE | 2018-06-28 19:49 | ED ---
Neurological HPI - HPI Summary HPI Summary: The patient is a 52 y.o male who is presenting to the [facility] with a complaints of fever and seizure. The patient is accompanied by a staff member from [facility]. The history was dictated by the staff member. According to her, the patient has had a fever. As per staff member from [facility], the flu has been spreading around and the patient's roommate is reportedly is dealing with it as well. Patient lives with parents at home and frequented [employer] throughout the week. The staff member is unsure at the onset of the fever. The onset of the seizure was earlier today and the patient was reported to have "come out of it weirdly" as per the staff member accompanying the patient. The medication list was provided and the temperate of the patient is at 104 F. Patient has not taken his evening medications, but prior to the evening medication, all other medications were reportedly taken at the right time and dosage. The patient rates the pain to be a 0/10. Symptoms aggravated by nothing. Symptoms alleviated by nothing. Patient also has a history of seizures (once a week). - History of Current Complaint Chief Complaint: EDFluSymptoms Stated Complaint: FLU LIKE SYMPTOMS Hx Obtained From: Patient Onset/Duration: Sudden Onset Timing: Sudden Onset Number of Seizures: 1 Pain Intensity: 0 Pain Scale Used: 0-10 Numeric Frequency: Episodes x___ - 1 Aggravating: Nothing Alleviating: Nothing Associated Signs and Symptoms: Positive: Seizure, Fever - Allergy/Home Medications Allergies/Adverse Reactions: Allergies Allergy/AdvReac Type Severity Reaction Status Date / Time adhesive tape Allergy Intermediate redness, Uncoded 06/28/18 18:38 itching PMH/Surg Hx/FS Hx/Imm Hx Endocrine/Hematology History: Denies: Hx Anticoagulant Therapy, Hx Blood Disorders, Hx Diabetes, Hx Thyroid Disease Cardiovascular History: Denies: Hx Hypertension Respiratory History: Reports: Other Respiratory Problems/Disorders - SHUNT Denies: Hx Asthma, Hx Chronic Obstructive Pulmonary Disease (COPD) GI History: Reports: Other GI Disorders - SHUNT Denies: Hx Ulcer History: Reports: Other Problems/Disorders - Neurogenic Bladder Musculoskeletal History: Reports: Hx Osteoporosis, Hx Scoliosis Denies: Hx Arthritis, Hx Back Problems, Hx Bursitis Sensory History: Reports: Hx Contacts or Glasses Opthamlomology History: Reports: Hx Contacts or Glasses Neurological History: Reports: Hx Developmental Delay, Hx Seizures Comment Only: Other Neuro Impairments/Disorders - SHUNTS X2, Hydrocephalis Psychiatric History: Reports: Hx Anxiety - Surgical History Surgery Procedure, Year, and Place: BILATERAL HIP REPLACEMENTS- orif Hx Anesthesia Reactions: No Infectious Disease History: No Infectious Disease History: Denies: Hx Hepatitis, Hx Human Immunodeficiency Virus (HIV), Traveled Outside the [place] in Last 30 Days - Family History Known Family History: Positive: Cardiac Disease - father, Diabetes - Maternal Grandmother - Social History Occupation: Disabled Lives: With Family Alcohol Use: None Hx Substance Use: Yes Substance Use Type: Reports: Prescribed Substance Use Comment - Amount & Last Used: seizure meds Hx Tobacco Use: No Smoking Status (MU): Never Smoked Tobacco Review of Systems Positive: Fever - 104 F Eyes: Negative ENT: Negative Cardiovascular: Negative Respiratory: Negative Gastrointestinal: Negative Genitourinary: Negative Musculoskeletal: Negative Skin: Negative Neurological: Other - Seizure All Other Systems Reviewed And Are Negative: Yes Physical Exam - Summary Physical Exam Summary: VITAL SIGNS: Reviewed. GENERAL: Patient is a well-developed and nourished (MALE) who is lying comfortable in the stretcher. Patient is not in any acute respiratory distress. HEAD AND FACE: No signs of trauma. No ecchymosis, hematomas or skull depressions. No sinus tenderness. EYES: PERRLA, EOMI x 2, No injected conjunctiva, no nystagmus. EARS: Hearing grossly intact. Ear canals and tympanic membranes are within normal limits. MOUTH: Oropharynx within normal limits. NECK: Supple, trachea is midline, no adenopathy, no JVD, no carotid bruit, no c- spine tenderness, neck with full ROM. CHEST: Symmetric, no tenderness at palpation LUNGS: Clear to auscultation bilaterally. No wheezing or crackles. CVS: Tachycardic, S1 and S2 present, no murmurs or gallops appreciated. ABDOMEN: Soft, non-tender. No signs of distention. No rebound no guarding, and no masses palpated. Bowel sounds are normal. EXTREMITIES: FROM in all major joints, no edema, no cyanosis or clubbing. NEURO: Alert and oriented x 3. No acute neurological deficits. Speech is normal and follows commands. SKIN: Dry and warm Triage Information Reviewed: Yes Vital Signs On Initial Exam: Initial Vitals Temp Pulse Resp BP Pulse Ox 99.9 F 85 17 131/80 97 02/18/19 18:33 06/28/18 18:33 06/28/18 18:33 06/28/18 18:33 06/28/18 18:33 Vital Signs Reviewed: Yes Diagnostics - Vital Signs Vital Signs Temp Pulse Resp BP Pulse Ox 06/28/18 19:42 100.3 F 06/28/18 19:40 93 15 143/94 93 06/28/18 19:39 89 94 06/28/18 18:33 99.9 F 85 17 131/80 97 - Laboratory Lab Results: Lab Results 06/28/18 Range/Units 18:58 Influenza A (Rapid) Positive A (Negative) Result Diagrams: 06/28/18 20:00 06/28/18 20:00 Lab Statement: Any lab studies that have been ordered have been reviewed, and results considered in the medical decision making process. - Radiology Chest X-ray Radiology Interpretation Completed By: ED Physician Summary of Radiographic Findings: Chest X-ray as per ED Physician reveals no acute infilitrate and shunt catheter, overlying the left hemothorax. Course/Dx - Course Course Of Treatment: The patient is a 52 year old male patient who is presenting to the [facility] with complaints of fever and seizure. The patient has a history of seizure. A chest X-ray was taken at the [facility]. The lab results showed low sodium levels. The patient will be discharged home. The dx will be Hyponatremia and influenza. We recommended to the patient of fluid restriction to 1500 cc and also recommended a repeat blood work done in 3 days by his primary care physician. - Diagnoses Provider Diagnoses: Hyponatremia, Influenza Discharge - Sign-Out/Discharge Documenting (check all that apply): Patient Departure Patient Received Moderate/Deep Sedation with Procedure: No - Discharge Plan Condition: Stable Disposition: HOME Prescriptions: Ibuprofen TAB* [Motrin TAB* 800 MG] 800 mg PO Q6H PRN #30 tab PRN Reason: Fever/Pain Oseltamivir CAP* [Tamiflu CAP*] 75 mg PO BID #10 cap Patient Education Materials: Hyponatremia (ED), Influenza (ED) Referrals: Neftaly Wganer MD [Primary Care Provider] - Additional Instructions: RETURN TO THE EMERGENCY DEPARTMENT FOR CHANGING OR WORSENING SYMPTOMS. FOLLOW UP WITH PCP IN 3 DAYS. Fluid Restriction of 1500 cc. The patient should not drink more than 1 liter and a half a day for 3 days. We recommend repeat blood work with primary care physician in 3 days. - Billing Disposition and Condition Condition: STABLE Disposition: Home - Attestation Statements Document Initiated by Sola: Yes Documenting Scribe: Rinku Rodgers Provider For Whom Sola is Documenting (Include Credential): Dr. Kamaljit Mccartney Scribe Attestation: Rinku Martínez, scribed for Dr. Kamaljit Mccartney on 06/29/18 at 0549. Scribe Documentation Reviewed: Yes Provider Attestation: The documentation as recorded by the Rinku waggoner accurately reflects the service I personally performed and the decisions made by me, Dr. Kamaljit Mccartney Status of Scriblucho Document: Viewed
[2018-06-28 20:14] LABS: Hematocrit 41 % (42-52); Hemoglobin 14.1 g/dl (14.0-18.0); Mean Corpuscular HGB Conc 34 g/dl (31-36); Mean Corpuscular Hemoglobin 31 pg (27-31); Mean Corpuscular Volume 91 fL (80-94); Mean Platelet Volume 7.4 fL (7.4-10.4); Platelet Count 179 10^3/ul (150-450); Red Blood Count 4.57 10^6/ul (4.00-5.40); Red Cell Distribution Width 12 % (10.5-15); White Blood Count 5.2 10^3/ul (3.5-10.8)
[2018-06-28 20:36] LABS: Albumin 4.3 g/dL (3.2-5.2); Albumin/Globulin Ratio 1.7 (1-3); BUN/Creatinine Ratio 13.8 (8-20); C Reactive Protein 28.2 mg/L (<8.01); Calcium 8.7 mg/dL (8.6-10.3); EGFR African American 156.1 (>60); Globulin 2.5 g/dL (2-4); Potassium 3.6 mmol/L (3.5-5.0); Total Bilirubin 0.4 mg/dL (0.2-1.0); Total Protein 6.8 g/dL (6.4-8.9)
[2018-06-28 20:39] LABS: Immature Granulocytes 2 % (0-9); Lymphocytes % 22 %; Monocytes % 18 %; Neutrophil % 58 %
[2018-06-28 20:40] LABS: ABS Basophils 0 10^3/ul (0-0.2); ABS Eosinophils 0 10^3/ul (0-0.6); ABS Lymphocytes 1.1 10^3/ul (1.0-4.8); ABS Nucleated RBC 0 10^3/ul; Nucleated Red Blood Cells % 0.1
[2018-06-28] MEDS ORDERED: Lacosamide TAB* 50 MG TAB PO SCH (21:00)
[2018-06-28 22:03] LABS: Urine Appearance Clear; Urine Bacteria Absent (Absent); Urine Bilirubin Negative (Negative); Urine Blood 2+ (Negative); Urine Color Straw; Urine Glucose Negative (Negative); Urine Ketones Negative (Negative); Urine Nitrite Negative (Negative); Urine Protein Negative (Negative); Urine Red Blood Cell 3+(>10/hpf) (Absent); Urine Specific Gravity 1.008 (1.010-1.030); Urine Urobilinogen Negative (Negative); Urine White Blood Cell Absent (Absent)
[2018-06-28 22:12] VITALS: BP 142/111
== END 2018-06-28 22:11 | disposition home or self-care (01) ==
LOC: ED 18:21
DX: J11.1 Influenza due to unidentified influenza virus with other respiratory manifestations (principal); E87.1 Hypo-osmolality and hyponatremia
CPT/HCPCS: 36415; 71045; 80053; 81003; 81015; 83605; 85025; 85060; 86140; 87040; 96360; 96361; 99283; A9270-GY

== ENCOUNTER 2020-03-15 08:56 | Inpatient (IN) ==
[2020-03-15 10:54] LABS: ABS Eosinophils 0.1 10^3/ul (0-0.6); ABS Lymphocytes 1.6 10^3/ul (1.0-4.8); ABS Monocytes 0.9 10^3/ul (0-0.8); ABS Neutrophils 6.2 10^3/ul (1.5-7.7); Eosinophil % 1.2 %; Hematocrit 43 % (42-52); Hemoglobin 14.4 g/dL (14.0-18.0); Lymphocyte % 18.4 %; Mean Corpuscular HGB Conc 34 g/dL (31-36); Mean Corpuscular Hemoglobin 31 pg (27-31); Mean Corpuscular Volume 91 fL (80-94); Mean Platelet Volume 7.2 fL (7.4-10.4); Platelet Count 268 10^3/uL (150-450); Red Blood Count 4.72 10^6 /uL (4.18-5.48); Red Cell Distribution Width 12 % (10-15); White Blood Count 8.8 10^3/uL (3.5-10.8)
[2020-03-15 11:15] LABS: Albumin 4.2 g/dL (3.2-5.2); Albumin/Globulin Ratio 1.6 (1-3); BUN/Creatinine Ratio 19.7 (8-20); EGFR African American 152.2 (>60); EGFR Non-African American 125.8 (>60); Globulin 2.6 g/dL (2-4); Magnesium 1.9 mg/dL (1.9-2.7); Potassium 4.3 mmol/L (3.5-5.0); Total Bilirubin 0.3 mg/dL (0.2-1.0); Total Protein 6.8 g/dL (6.4-8.9)
[2020-03-15] MEDS ORDERED: Magic MouthWash2-BEN/MAAL/LIDO/NYST 240 ML BTL (alt formulation) SWISH SWAL PRN (16:42)
[2020-03-15] MEDS ORDERED: Calcium Carb (TUMS) 500 mg CHEW TAB PO PRN (17:00)
[2020-03-15 17:03] LABS: Urine Appearance Cloudy; Urine Bilirubin Negative (Negative); Urine Blood Negative (Negative); Urine Color Yellow; Urine Glucose Negative (Negative); Urine Ketones Negative (Negative); Urine Nitrite Negative (Negative); Urine Protein Negative (Negative); Urine Specific Gravity 1.013 (1.010-1.030); Urine Urobilinogen Negative (Negative)
[2020-03-15] MEDS ORDERED: GuaiFENesin DM 100 mg/10 mg in 5 ML UDC PO PRN (18:14)
[2020-03-15] MEDS: Miconazole TOPICAL CREAM 2% 30 GM TOPICAL SCH (23:17)
[2020-03-16] MEDS ORDERED: Iohexol 300 (CONTRAST) 10 ML SDV IV ONE (00:06)
[2020-03-16] MEDS: Bacitracin OINTMENT TUBE TOPICAL SCH (09:09)
[2020-03-16] MEDS: Miconazole TOPICAL CREAM 2% 30 GM TOPICAL SCH ×2 (09:11→20:34)
[2020-03-16] MEDS: Heparin 5000 UNITS/ML 1 mL VIAL SUBCUT SCH ×2 (10:25→20:34)
[2020-03-16 10:39] LABS: ABS Basophils 0.1 10^3/ul (0-0.2); ABS Eosinophils 0.1 10^3/ul (0-0.6); ABS Lymphocytes 1.1 10^3/ul (1.0-4.8); ABS Monocytes 0.8 10^3/ul (0-0.8); ABS Neutrophils 5.6 10^3/ul (1.5-7.7); Eosinophil % 1.1 %; Hematocrit 42 % (42-52); Hemoglobin 14.6 g/dL (14.0-18.0); Lymphocyte % 14.6 %; Mean Corpuscular HGB Conc 35 g/dL (31-36); Mean Corpuscular Hemoglobin 31 pg (27-31); Mean Corpuscular Volume 89 fL (80-94); Platelet Count 278 10^3/uL (150-450); Red Blood Count 4.69 10^6 /uL (4.18-5.48); Red Cell Distribution Width 13 % (10-15); White Blood Count 7.6 10^3/uL (3.5-10.8)
[2020-03-16 10:49] LABS: INR 1.16 (0.82-1.09)
[2020-03-16 10:50] LABS: Activated Partial Thrombo Time 65.8 seconds (26.0-38.0)
[2020-03-16 10:56] LABS: EGFR African American 157.7 (>60); EGFR Non-African American 130.3 (>60)
[2020-03-17] MEDS: Heparin 5000 UNITS/ML 1 mL VIAL SUBCUT SCH ×2 (08:55→21:17)
[2020-03-17] MEDS: Miconazole TOPICAL CREAM 2% 30 GM TOPICAL SCH ×2 (08:55→21:17)
[2020-03-17] MEDS: Bacitracin OINTMENT TUBE TOPICAL SCH (08:57)
[2020-03-17] MEDS ORDERED: Lactated Ringers 1000 ml BAG 1,000 ML IV SCH (09:00)
[2020-03-17 13:05] LABS: Lamotrigine 10.9 mcg/mL (2.5 - 15.0)
[2020-03-17] MEDS: Lactated Ringers 1000 ml BAG 1,000 ML IV SCH (22:09)
[2020-03-18] MEDS: Lactated Ringers 1000 ml BAG 1,000 ML IV SCH (08:43)
[2020-03-18] MEDS: Heparin 5000 UNITS/ML 1 mL VIAL SUBCUT SCH ×2 (09:02→20:58)
[2020-03-18] MEDS: Bacitracin OINTMENT TUBE TOPICAL SCH (09:07)
[2020-03-18] MEDS: Miconazole TOPICAL CREAM 2% 30 GM TOPICAL SCH ×2 (09:10→21:04)
[2020-03-18 14:14] LABS: Hematocrit 40 % (42-52); Hemoglobin 13.7 g/dL (14.0-18.0); Mean Corpuscular HGB Conc 34 g/dL (31-36); Mean Corpuscular Hemoglobin 31 pg (27-31); Mean Corpuscular Volume 89 fL (80-94); Mean Platelet Volume 6.8 fL (7.4-10.4); Platelet Count 249 10^3/uL (150-450); Red Blood Count 4.44 10^6 /uL (4.18-5.48); Red Cell Distribution Width 13 % (10-15); White Blood Count 8.5 10^3/uL (3.5-10.8)
[2020-03-18 14:33] LABS: BUN/Creatinine Ratio 16.4 (8-20); Calcium 8.5 mg/dL (8.6-10.3); EGFR African American 149.6 (>60); EGFR Non-African American 123.6 (>60); Potassium 3.6 mmol/L (3.5-5.0)
[2020-03-19 04:27] LABS: ABS Basophils 0.1 10^3/ul (0-0.2); ABS Eosinophils 0.2 10^3/ul (0-0.6); ABS Lymphocytes 2.4 10^3/ul (1.0-4.8); ABS Monocytes 1.1 10^3/ul (0-0.8); ABS Neutrophils 5.9 10^3/ul (1.5-7.7); Eosinophil % 2.2 %; Hematocrit 38 % (42-52); Hemoglobin 13.2 g/dL (14.0-18.0); Lymphocyte % 24.9 %; Mean Corpuscular HGB Conc 35 g/dL (31-36); Mean Corpuscular Hemoglobin 31 pg (27-31); Mean Corpuscular Volume 90 fL (80-94); Mean Platelet Volume 6.5 fL (7.4-10.4); Nucleated Red Blood Cells % 0.1; Platelet Count 248 10^3/uL (150-450); Red Blood Count 4.22 10^6 /uL (4.18-5.48); Red Cell Distribution Width 13 % (10-15); White Blood Count 9.7 10^3/uL (3.5-10.8)
[2020-03-19 06:14] LABS: BUN/Creatinine Ratio 12.9 (8-20); Calcium 8.4 mg/dL (8.6-10.3); EGFR African American 163.6 (>60); EGFR Non-African American 135.2 (>60); Potassium 3.4 mmol/L (3.5-5.0)
[2020-03-19] MEDS: Heparin 5000 UNITS/ML 1 mL VIAL SUBCUT SCH ×2 (09:12→21:23)
[2020-03-19] MEDS: Miconazole TOPICAL CREAM 2% 30 GM TOPICAL SCH ×2 (09:12→21:25)
[2020-03-19] MEDS: Bacitracin OINTMENT TUBE TOPICAL SCH (09:13)
[2020-03-19] MEDS ORDERED: Potassium Chloride LIQUID 20 MEQ/15 ML LIQUID PO ONE (09:30)
[2020-03-19] MEDS ORDERED: KCL 20 MEQ/100 ML IVPREMIX 20 MEQ/100 ML BAG IV SCH (10:00)
[2020-03-19 11:42] LABS: Lacosamide 10.7 mcg/mL (1.0 - 10.0)
[2020-03-19] MEDS ORDERED: Lactated Ringers 500 ml BAG 500 ML IV ONE (15:22)
[2020-03-19] MEDS: Lactated Ringers 1000 ml BAG 1,000 ML IV SCH (15:30)
[2020-03-20] MEDS: Heparin 5000 UNITS/ML 1 mL VIAL SUBCUT SCH ×2 (08:38→20:44)
[2020-03-20] MEDS: Miconazole TOPICAL CREAM 2% 30 GM TOPICAL SCH ×2 (09:46→20:43)
[2020-03-20] MEDS: Bacitracin OINTMENT TUBE TOPICAL SCH (09:46)
[2020-03-20] MEDS ORDERED: Potassium Chlor 20 meq TAB.ER PO ONE (16:27)
[2020-03-21 06:28] LABS: ABS Basophils 0.1 10^3/ul (0-0.2); ABS Eosinophils 0.3 10^3/ul (0-0.6); ABS Lymphocytes 1.8 10^3/ul (1.0-4.8); ABS Monocytes 0.9 10^3/ul (0-0.8); Eosinophil % 3.3 %; Hematocrit 37 % (42-52); Hemoglobin 12.8 g/dL (14.0-18.0); Lymphocyte % 22.5 %; Mean Corpuscular HGB Conc 34 g/dL (31-36); Mean Corpuscular Hemoglobin 31 pg (27-31); Mean Corpuscular Volume 90 fL (80-94); Mean Platelet Volume 7.2 fL (7.4-10.4); Platelet Count 244 10^3/uL (150-450); Red Blood Count 4.13 10^6 /uL (4.18-5.48); Red Cell Distribution Width 13 % (10-15); White Blood Count 8.1 10^3/uL (3.5-10.8)
[2020-03-21 06:58] LABS: BUN/Creatinine Ratio 14.5 (8-20); Calcium 8.4 mg/dL (8.6-10.3); EGFR African American 163.6 (>60); EGFR Non-African American 135.2 (>60); Potassium 3.6 mmol/L (3.5-5.0)
[2020-03-21] MEDS: Miconazole TOPICAL CREAM 2% 30 GM TOPICAL SCH (08:35)
[2020-03-21] MEDS: Bacitracin OINTMENT TUBE TOPICAL SCH (08:35)
[2020-03-21] MEDS: Heparin 5000 UNITS/ML 1 mL VIAL SUBCUT SCH (08:36)
[2020-03-21 18:05] VITALS: BP 155/84
== END 2020-03-21 18:30 | disposition short-term general hospital (02) | DRG 92 ==
LOC: ED 08:56 → MED 16:40 → ICU 19:52 → MEDTELE 03-19 08:00
PROVIDERS: ADMIT Student in an Organized Health Care Education/Training Program; ATTEND Internal Medicine

== ENCOUNTER 2020-12-24 07:30 | Observation (INO) ==
[~2020-12-24 07:30] MED LIST: Buffered Lidocaine 1% SYRIN 1 ml INTRADERM ONE; DiMENhydriNATE IV 50 mg/ml 1 ml VIAL IV PUSH ONE; HYDROcodone/ACETAMIN 5/325 mg TAB PO PRN; Lactated Ringers 1000 ml BAG 1,000 ML IV SCH; Metoclopramide 5 MG/ML VIAL (10 mg) IV PRN; Naloxone 0.4 mg VIAL 0.4 mg/ml 1 ml VIAL IV PRN; Ondansetron 4 mg VIAL 2 MG/ML 2 ml VIAL IV PRN; fentaNYL 100 mcg/2 ml 50 MCG/ML VIAL IV PRN
[2020-12-24] MEDS ORDERED: HYDROmorphone 1 MG/1 ML SYRINGE ONE (10:04)
[2020-12-24] MEDS ORDERED: Ketamine HCL 50 mg/ml 10 ml VIAL (500 MG) ONE (10:04)
[2020-12-24] MEDS ORDERED: Midazolam 2 mg/2 ml VIAL 1 mg/ml 2 ml VIAL (2 mg) ONE (10:04)
[2020-12-24] MEDS ORDERED: Dexamethasone IV 4 MG/ML VIAL 1 ml VIAL ONE (10:05)
[2020-12-24] MEDS ORDERED: Lidocaine 2% PF 5 ML VIAL ONE (10:05)
[2020-12-24] MEDS ORDERED: Propofol 10 MG/ML 20 ML BTL ONE ×2 (10:05→14:23)
[2020-12-24] MEDS ORDERED: Phenylephrine IV 10 MG/ML 1 ml VIAL ONE (10:05)
[2020-12-24] MEDS ORDERED: Rocuronium 50 mg VIAL 10 mg/ml 5 ml VIAL (50 mg) ONE (10:05)
[2020-12-24] MEDS ORDERED: Glycopyrrolate IV 0.2 MG/ML 1 ML VIAL ONE (10:05)
[2020-12-24] MEDS ORDERED: Ondansetron 4 mg VIAL 2 MG/ML 2 ml VIAL ONE (10:05)
[2020-12-24] MEDS ORDERED: Clindamycin 900 MG/D5W BAG 900 MG/50 ML BAG IVPB ONE (11:20)
[2020-12-24] MEDS ORDERED: Thrombin 5,000 UNITS 1 APPLIC KIT - topical use - TOPICAL ONE (12:56)
[2020-12-24] MEDS ORDERED: Gelfoam 12-7 ADSORBABL SPONGE ONE (12:56)
[2020-12-24] MEDS ORDERED: Bacitracin OINTMENT TUBE ONE (12:57)
[2020-12-24] MEDS ORDERED: Bupivacaine 0.25% EPI 200,000 30 ML SDV ONE (12:57)
[2020-12-24] MEDS ORDERED: Propofol 10 mg/ml 100 ML BTL 0 ML ONE (13:36)
[2020-12-24] MEDS ORDERED: ceFAZolin VIAL VIAL ONE (14:17)
[2020-12-24] MEDS ORDERED: Ondansetron 4 mg VIAL 2 MG/ML 2 ml VIAL IV PRN (15:02)
[2020-12-24] MEDS ORDERED: Polyethylene Glycol 3350 17 GM PACKET PO PRN (15:11)
[2020-12-24] MEDS ORDERED: guaiFENesin DM SUGAR FREE 100 MG/10 MG 5 ML UDC PO PRN (15:15)
[2020-12-24] MEDS ORDERED: NS 0.9% 1000 ml BAG 1,000 ML IV SCH (15:15)
[2020-12-24] MEDS ORDERED: PHENYLEPHRINE HCL 10 MG PO PRN (15:15)
[2020-12-24] MEDS ORDERED: Calcium Carb (TUMS) 500 mg CHEW TAB PO SCH (16:00)
[2020-12-24] MEDS: Acetaminophen IV 1 GM/100ML 100 ML IV SCH (20:27)
[2020-12-24] MEDS: Calcium/Vitamin D TAB 250/125 TAB PO SCH (20:31)
[2020-12-24] MEDS ORDERED: CRANBERRY 400 MG PO SCH (21:00)
[2020-12-24] MEDS ORDERED: ceFAZolin 2 GM in NS PREMIX 2 GM/100 ML BAG IVPB SCH (21:30)
[2020-12-24] MEDS: Magnesium Hydroxide LIQ 30 ML UDC PO SCH (23:03)
[2020-12-25] MEDS: Acetaminophen IV 1 GM/100ML 100 ML IV SCH ×2 (04:07→14:23)
[2020-12-25] MEDS ORDERED: ceFAZolin 2 GM in NS PREMIX 2 GM/100 ML BAG IVPB SCH (07:30)
[2020-12-25] MEDS ORDERED: Multivitamins/Minerals TAB PO SCH (09:00)
[2020-12-25] MEDS: Calcium/Vitamin D TAB 250/125 TAB PO SCH (09:51)
[2020-12-25] MEDS: Magnesium Hydroxide LIQ 30 ML UDC PO SCH (09:52)
[2020-12-25 11:35] VITALS: BP 130/93
== END 2020-12-25 15:25 | disposition home or self-care (01) ==
LOC: INTOOBSV 10:56 → OBSVTOIN 10:56 → AA 10:56 → SSU 16:11
PROVIDERS: ADMIT Neurological Surgery; ATTEND Neurological Surgery

== ENCOUNTER 2021-04-28 17:58 | Inpatient (IN) ==
[2021-04-28] MEDS ORDERED: LORazepam 2 mg VIAL 1 ml ONE (18:04)
[2021-04-28] MEDS ORDERED: Lactated Ringers 1000 ml BAG 1,000 ML IV ONE ×2 (18:11→22:35)
[2021-04-28] MEDS ORDERED: LORazepam 2 mg VIAL 1 ml IV PUSH ONE (18:22)
[2021-04-28] MEDS ORDERED: Lorazepam PYXIS KEY PRN (18:22)
[2021-04-28 18:26] LABS: Hematocrit 42 % (42-52); Hemoglobin 13.7 g/dL (14.0-18.0); Mean Corpuscular HGB Conc 32 g/dL (31-36); Mean Corpuscular Hemoglobin 30 pg (27-31); Mean Corpuscular Volume 92 fL (80-94); Mean Platelet Volume 6.5 fL (7.4-10.4); Platelet Count 349 10^3/uL (150-450); Red Blood Count 4.61 10^6 /uL (4.18-5.48); Red Cell Distribution Width 13 % (10-15); White Blood Count 23.1 10^3/uL (3.5-10.8)
[2021-04-28 18:37] LABS: INR 1.29 (0.86-1.15)
[2021-04-28 18:45] LABS: ALT 22 U/L (7-52); AST 20 U/L (13-39); Albumin 4.5 g/dL (3.2-5.2); Albumin/Globulin Ratio 1.4 (1-3); Alkaline Phosphatase 114 U/L (35-149); Blood Urea Nitrogen 15 mg/dL (6-24); Calcium 9.1 mg/dL (8.6-10.3); Chloride 92 mmol/L (101-111); Creatine Kinase 58 U/L (10-223); Globulin 3.2 g/dL (2-4); Glucose 178 mg/dL (70-100); Potassium 4.4 mmol/L (3.5-5.0); Sodium 127 mmol/L (135-145); Total Protein 7.7 g/dL (6.4-8.9); eGFR CKD-EPI 95.7 (>60)
[2021-04-28 19:02] LABS: Anion Gap 23 mmol/L (2-11); CO2 Carbon Dioxide 12 mmol/L (22-32)
[2021-04-28 19:06] LABS: Alcohol, S < 13 mg/dL (<13)
[2021-04-28 19:12] LABS: ABS Eosinophils 0.1 10^3/ul (0-0.6); ABS Lymphocytes 1.3 10^3/ul (1.0-4.8); ABS Monocytes 1.2 10^3/ul (0-0.8); ABS Neutrophils 20.5 10^3/ul (1.5-7.7); Eosinophil % 0.2 %; Lymphocyte % 5.5 %
[2021-04-28 20:00] LABS: Urine Appearance Cloudy; Urine Bilirubin Negative (Negative); Urine Blood 2+ (Negative); Urine Color Yellow; Urine Glucose Negative (Negative); Urine Ketones Negative (Negative); Urine Nitrite Negative (Negative); Urine Protein 1+(30 mg/dL) (Negative); Urine Specific Gravity 1.021 (1.002-1.030); Urine Urobilinogen Negative (Negative)
[2021-04-28] MEDS ORDERED: Lactated Ringers 1000 ml BAG 1,000 ML IV SCH (20:00)
[2021-04-28 20:08] LABS: Urine Bacteria Absent (Absent); Urine Red Blood Cell 2+(6-10/hpf) (Absent); Urine Squamous Epithelial Cell Present (Absent); Urine White Blood Cell Trace(0-5/hpf) (Absent)
[2021-04-28] MEDS ORDERED: Iohexol 300 (CONTRAST) 10 ML SDV IV ONE (21:31)
[2021-04-28] MEDS ORDERED: Piperacillin/Tazobac ADVAN 3.375 GM in NS 0.9% 100 ml BAG 100 ML IV ONE (23:37)
[2021-04-28] MEDS ORDERED: Vancomycin 1,500 MG in NS 0.9% 250 ml 250 ML IVPB ONE (23:45)
[2021-04-28] MEDS ORDERED: Zosyn per Pharmacy NOTE FOLLOW UP SCH (23:45)
[2021-04-28 23:56] LABS: Calcium 7.4 mg/dL (8.6-10.3); Potassium 4.1 mmol/L (3.5-5.0); eGFR CKD-EPI 110.8 (>60)
[2021-04-28] MEDS ORDERED: Polyethylene Glycol 3350 17 GM PACKET PO PRN (23:56)
[2021-04-29] MEDS: ZOSYN 3.375 GM Q8H per EXTENDED INFUSION IV SCH ×4 (04:30→22:00)
[2021-04-29 06:03] LABS: Hematocrit 37 % (42-52); Hemoglobin 12.3 g/dL (14.0-18.0); Mean Corpuscular HGB Conc 33 g/dL (31-36); Mean Corpuscular Hemoglobin 30 pg (27-31); Mean Corpuscular Volume 89 fL (80-94); Mean Platelet Volume 6.3 fL (7.4-10.4); Platelet Count 241 10^3/uL (150-450); Red Blood Count 4.18 10^6 /uL (4.18-5.48); Red Cell Distribution Width 13 % (10-15); White Blood Count 28.7 10^3/uL (3.5-10.8)
[2021-04-29] MEDS ORDERED: NS 0.9% 1000 ml BAG 1,000 ML IV SCH (06:15)
[2021-04-29 06:27] LABS: Albumin 3.6 g/dL (3.2-5.2); Albumin/Globulin Ratio 1.4 (1-3); Calcium 8.2 mg/dL (8.6-10.3); Globulin 2.6 g/dL (2-4); Potassium 4.2 mmol/L (3.5-5.0); Total Bilirubin 0.8 mg/dL (0.2-1.0); Total Protein 6.2 g/dL (6.4-8.9); eGFR CKD-EPI 112.9 (>60)
[2021-04-29 06:43] LABS: ABS Eosinophils 0.1 10^3/ul (0-0.6); ABS Lymphocytes 0.8 10^3/ul (1.0-4.8); ABS Monocytes 1.5 10^3/ul (0-0.8); ABS Neutrophils 26.2 10^3/ul (1.5-7.7); Eosinophil % 0.3 %; RBC Morphology Normal (Normal)
[2021-04-29] MEDS ORDERED: Ertapenem 1 GM in NS 0.9% 50 ML IVPB ONE (07:00)
[2021-04-29 07:49] LABS: Body Fluid Source Cerebral Spinal
[2021-04-29 08:04] LABS: Body Fluid Appearance Cloudy; Body Fluid Color Pink
[2021-04-29 08:26] LABS: CSF Glucose < 10 mg/dL (40-70)
[2021-04-29 08:50] LABS: Body Fluid WBC 9801 /mcL
[2021-04-29 08:54] LABS: Body Fluid Total Cells Counted 200
[2021-04-29] MEDS ORDERED: NS 0.9% 1000 ml BAG 1,000 ML IV ONE (11:45)
[2021-04-29] MEDS: Vancomycin 1,250 MG in NS 0.9% 250 ml 250 ML IVPB SCH (13:11)
[2021-04-29] MEDS: NS 0.9% 1000 ml BAG 1,000 ML IV SCH (22:21)
[2021-04-30] MEDS: Vancomycin 1,250 MG in NS 0.9% 250 ml 250 ML IVPB SCH ×2 (02:32→13:21)
[2021-04-30] MEDS: ZOSYN 3.375 GM Q8H per EXTENDED INFUSION IV SCH ×2 (06:00→15:25)
[2021-04-30 07:58] LABS: Hematocrit 31 % (42-52); Hemoglobin 10.6 g/dL (14.0-18.0); Mean Corpuscular HGB Conc 34 g/dL (31-36); Mean Corpuscular Hemoglobin 30 pg (27-31); Mean Corpuscular Volume 90 fL (80-94); Mean Platelet Volume 6.8 fL (7.4-10.4); Platelet Count 236 10^3/uL (150-450); Red Blood Count 3.48 10^6 /uL (4.18-5.48); Red Cell Distribution Width 13 % (10-15); White Blood Count 18.8 10^3/uL (3.5-10.8)
[2021-04-30 08:00] LABS: ABS Eosinophils 0.1 10^3/ul (0-0.6); ABS Monocytes 1.6 10^3/ul (0-0.8); ABS Neutrophils 16.1 10^3/ul (1.5-7.7); Eosinophil % 0.4 %; Lymphocyte % 5.4 %
[2021-04-30 08:08] LABS: Calcium 7.9 mg/dL (8.6-10.3); Potassium 3.6 mmol/L (3.5-5.0); eGFR CKD-EPI 105.7 (>60)
[2021-04-30] MEDS: NS 0.9% 1000 ml BAG 1,000 ML IV SCH ×2 (08:59→20:39)
[2021-04-30] MEDS ORDERED: Vancomycin per Pharmacy 1 EA NOTE FOLLOW UP PRN (10:46)
[2021-04-30] MEDS ORDERED: Vancomycin Trough Check NOTE FOLLOW UP ONE (12:30)
[2021-04-30 12:31] LABS: eGFR CKD-EPI 104.1 (>60)
[2021-04-30] MEDS ORDERED: Linezolid 600 MG IVPREMIX(*) 600 MG/300 ML BAG IVPB SCH (17:00)
[2021-04-30] MEDS ORDERED: Morphine 2 MG/ML SYRINGE ONE (17:04)
[2021-04-30] MEDS ORDERED: NS 0.9% 1000 ML/HR X 1 BAG (TOTAL 1000 ML) IV ONE (18:30)
[2021-04-30] MEDS ORDERED: LORazepam 2 mg VIAL 1 ml IV PUSH ONE (21:30)
[2021-04-30] MEDS ORDERED: Lorazepam PYXIS KEY PRN (21:30)
[2021-04-30 21:43] VITALS: BP 154/82
[2021-05-03] MEDS ORDERED: Vancomycin Trough Check NOTE FOLLOW UP ONE (12:30)
== END 2021-04-30 05:57 | disposition short-term general hospital (02) | DRG 871 ==
LOC: ED 17:58 → SUATTDRO 23:52 → SSU 23:52
PROVIDERS: ADMIT Student in an Organized Health Care Education/Training Program; ATTEND Internal Medicine

== ENCOUNTER 2021-06-13 07:15 | Inpatient (IN) ==
[2021-06-13] MEDS ORDERED: Senna TAB 8.6 mg TAB PO PRN (12:16)
[2021-06-13] MEDS: Heparin 5000 UNITS/ML 1 mL VIAL SUBCUT SCH (20:54)
[2021-06-13] MEDS: Polyethylene Glycol 3350 17 GM PACKET PO SCH (20:54)
[2021-06-13] MEDS: Senna TAB 8.6 mg TAB PO SCH (21:01)
[2021-06-13] MEDS: Nystatin TOP POWDER 15 GM BTL TOPICAL SCH (21:06)
[2021-06-14 05:24] LABS: ABS Basophils 0.1 10^3/ul (0-0.2); ABS Lymphocytes 2.1 10^3/ul (1.0-4.8); ABS Monocytes 1.3 10^3/ul (0-0.8); ABS Neutrophils 5.7 10^3/ul (1.5-7.7); Hematocrit 29 % (42-52); Hemoglobin 9.4 g/dL (14.0-18.0); Lymphocyte % 22.4 %; Mean Corpuscular HGB Conc 32 g/dL (31-36); Mean Corpuscular Hemoglobin 28 pg (27-31); Mean Corpuscular Volume 87 fL (80-94); Mean Platelet Volume 6.5 fL (7.4-10.4); Platelet Count 379 10^3/uL (150-450); Red Blood Count 3.34 10^6 /uL (4.18-5.48); Red Cell Distribution Width 16 % (10-15); White Blood Count 9.2 10^3/uL (3.5-10.8)
[2021-06-14 05:41] LABS: Albumin/Globulin Ratio 0.7 (1-3); Calcium 8.9 mg/dL (8.6-10.3); Globulin 4.3 g/dL (2-4); Potassium 3.7 mmol/L (3.5-5.0); Total Bilirubin 0.3 mg/dL (0.2-1.0); Total Protein 7.3 g/dL (6.4-8.9); eGFR CKD-EPI 85.8 (>60)
[2021-06-14] MEDS ORDERED: Phenylephrine 0.5% NASAL BTL BOTH NARES PRN (08:20)
[2021-06-14] MEDS: Senna TAB 8.6 mg TAB PO SCH ×2 (08:59→21:44)
[2021-06-14] MEDS: Ondansetron ODT 4 mg TAB 4 MG TAB PO PRN (09:00)
[2021-06-14] MEDS: Polyethylene Glycol 3350 17 GM PACKET PO SCH ×2 (09:02→21:39)
[2021-06-14] MEDS: Multivitamins/Minerals TAB PO SCH (09:02)
[2021-06-14] MEDS: Nystatin TOP POWDER 15 GM BTL TOPICAL SCH ×2 (09:03→21:44)
[2021-06-14] MEDS: Heparin 5000 UNITS/ML 1 mL VIAL SUBCUT SCH (09:03)
[2021-06-14 14:04] LABS: Hematocrit 32 % (42-52); Hemoglobin 9.9 g/dL (14.0-18.0); Mean Corpuscular HGB Conc 31 g/dL (31-36); Mean Corpuscular Hemoglobin 28 pg (27-31); Mean Corpuscular Volume 91 fL (80-94); Mean Platelet Volume 6.9 fL (7.4-10.4); Platelet Count 358 10^3/uL (150-450); Red Blood Count 3.55 10^6 /uL (4.18-5.48); Red Cell Distribution Width 17 % (10-15); White Blood Count 11.6 10^3/uL (3.5-10.8)
[2021-06-14 14:05] LABS: ABS Basophils 0.1 10^3/ul (0-0.2); ABS Lymphocytes 2.4 10^3/ul (1.0-4.8); ABS Monocytes 1.7 10^3/ul (0-0.8); ABS Neutrophils 7.3 10^3/ul (1.5-7.7); Eosinophil % 0.3 %; Lymphocyte % 20.6 %; Nucleated Red Blood Cells % 0.1
[2021-06-15] MEDS: Polyethylene Glycol 3350 17 GM PACKET PO SCH ×2 (09:59→22:30)
[2021-06-15] MEDS: Multivitamins/Minerals TAB PO SCH (10:01)
[2021-06-15] MEDS: Senna TAB 8.6 mg TAB PO SCH ×2 (10:03→22:30)
[2021-06-15] MEDS: Nystatin TOP POWDER 15 GM BTL TOPICAL SCH ×2 (10:03→20:57)
[2021-06-16 05:11] LABS: Hematocrit 30 % (42-52); Hemoglobin 9.8 g/dL (14.0-18.0); Mean Corpuscular HGB Conc 32 g/dL (31-36); Mean Corpuscular Hemoglobin 28 pg (27-31); Mean Corpuscular Volume 86 fL (80-94); Mean Platelet Volume 6.6 fL (7.4-10.4); Platelet Count 340 10^3/uL (150-450); Red Blood Count 3.53 10^6 /uL (4.18-5.48); Red Cell Distribution Width 17 % (10-15); White Blood Count 10.8 10^3/uL (3.5-10.8)
[2021-06-16 05:28] LABS: ABS Basophils 0.1 10^3/ul (0-0.2); ABS Lymphocytes 2.2 10^3/ul (1.0-4.8); ABS Monocytes 1.2 10^3/ul (0-0.8); ABS Neutrophils 7.3 10^3/ul (1.5-7.7); Eosinophil % 0.2 %; Lymphocyte % 20.7 %; Nucleated Red Blood Cells % 0.2
[2021-06-16] MEDS: Multivitamins/Minerals TAB PO SCH (09:06)
[2021-06-16] MEDS: Nystatin TOP POWDER 15 GM BTL TOPICAL SCH ×2 (09:06→20:59)
[2021-06-16] MEDS: Polyethylene Glycol 3350 17 GM PACKET PO SCH ×2 (09:09→20:45)
[2021-06-16] MEDS: Senna TAB 8.6 mg TAB PO SCH ×2 (09:09→20:45)
[2021-06-17] MEDS: Senna TAB 8.6 mg TAB PO SCH ×2 (09:45→20:49)
[2021-06-17] MEDS: Multivitamins/Minerals TAB PO SCH (09:45)
[2021-06-17] MEDS: Nystatin TOP POWDER 15 GM BTL TOPICAL SCH ×2 (09:56→20:54)
[2021-06-17] MEDS: Polyethylene Glycol 3350 17 GM PACKET PO SCH ×2 (09:56→20:49)
[2021-06-17] MEDS: Ondansetron ODT 4 mg TAB 4 MG TAB PO PRN (12:06)
[2021-06-18] MEDS: Multivitamins/Minerals TAB PO SCH (09:22)
[2021-06-18] MEDS: Senna TAB 8.6 mg TAB PO SCH ×2 (09:23→21:24)
[2021-06-18] MEDS: Nystatin TOP POWDER 15 GM BTL TOPICAL SCH ×2 (09:23→21:24)
[2021-06-18] MEDS: Polyethylene Glycol 3350 17 GM PACKET PO SCH ×2 (09:23→21:24)
[2021-06-19] MEDS: Multivitamins/Minerals TAB PO SCH (09:31)
[2021-06-19] MEDS: Polyethylene Glycol 3350 17 GM PACKET PO SCH ×2 (09:32→20:12)
[2021-06-19] MEDS: Nystatin TOP POWDER 15 GM BTL TOPICAL SCH ×2 (09:32→20:12)
[2021-06-19] MEDS: Senna TAB 8.6 mg TAB PO SCH ×2 (09:32→20:12)
[2021-06-20] MEDS: Senna TAB 8.6 mg TAB PO SCH ×2 (09:48→20:51)
[2021-06-20] MEDS: Multivitamins/Minerals TAB PO SCH (09:51)
[2021-06-20] MEDS: Heparin 5000 UNITS/ML 1 mL VIAL SUBCUT SCH ×2 (09:52→20:51)
[2021-06-20] MEDS: Polyethylene Glycol 3350 17 GM PACKET PO SCH ×2 (10:04→21:20)
[2021-06-20] MEDS: Nystatin TOP POWDER 15 GM BTL TOPICAL SCH ×2 (10:06→21:20)
[2021-06-20] MEDS: Ondansetron ODT 4 mg TAB 4 MG TAB PO PRN (13:04)
[2021-06-21 06:13] LABS: ABS Basophils 0.1 10^3/ul (0-0.2); ABS Lymphocytes 2.5 10^3/ul (1.0-4.8); ABS Monocytes 1.4 10^3/ul (0-0.8); ABS Neutrophils 8.8 10^3/ul (1.5-7.7); Eosinophil % 0.1 %; Hematocrit 26 % (42-52); Hemoglobin 8.4 g/dL (14.0-18.0); Lymphocyte % 19.7 %; Mean Corpuscular HGB Conc 32 g/dL (31-36); Mean Corpuscular Hemoglobin 28 pg (27-31); Mean Corpuscular Volume 87 fL (80-94); Mean Platelet Volume 6.8 fL (7.4-10.4); Platelet Count 314 10^3/uL (150-450); Red Blood Count 3.02 10^6 /uL (4.18-5.48); Red Cell Distribution Width 17 % (10-15); White Blood Count 12.9 10^3/uL (3.5-10.8)
[2021-06-21 06:31] LABS: Albumin 3.1 g/dL (3.2-5.2); Albumin/Globulin Ratio 0.9 (1-3); Calcium 8.8 mg/dL (8.6-10.3); Globulin 3.4 g/dL (2-4); Potassium 4.2 mmol/L (3.5-5.0); Total Bilirubin 0.2 mg/dL (0.2-1.0); Total Protein 6.5 g/dL (6.4-8.9); eGFR CKD-EPI 88.9 (>60)
[2021-06-21] MEDS: Senna TAB 8.6 mg TAB PO SCH ×2 (09:51→21:35)
[2021-06-21] MEDS: Multivitamins/Minerals TAB PO SCH (09:51)
[2021-06-21] MEDS: Heparin 5000 UNITS/ML 1 mL VIAL SUBCUT SCH ×2 (09:51→21:36)
[2021-06-21] MEDS: Nystatin TOP POWDER 15 GM BTL TOPICAL SCH ×2 (09:51→21:39)
[2021-06-21] MEDS: Polyethylene Glycol 3350 17 GM PACKET PO SCH ×2 (09:52→21:40)
[2021-06-21 11:11] LABS: Urine Appearance Cloudy; Urine Bilirubin Negative (Negative); Urine Blood Negative (Negative); Urine Color Yellow; Urine Glucose Negative (Negative); Urine Ketones Negative (Negative); Urine Nitrite Positive (Negative); Urine Protein 1+(30 mg/dL) (Negative); Urine Specific Gravity 1.017 (1.002-1.030); Urine Urobilinogen Negative (Negative)
[2021-06-21 11:15] LABS: Urine Bacteria 1+ (Absent); Urine Red Blood Cell 2+(6-10/hpf) (Absent); Urine Squamous Epithelial Cell Present (Absent); Urine White Blood Cell 3+(>20/hpf) (Absent)
[2021-06-21] MEDS: cefTRIAXone 1 gm/50 mL NS BAG 1 GM/50 ML BAG IVPB SCH (13:55)
[2021-06-21 19:11] LABS: ABS Basophils 0.1 10^3/ul (0-0.2); ABS Lymphocytes 2.6 10^3/ul (1.0-4.8); ABS Monocytes 1.4 10^3/ul (0-0.8); Eosinophil % 0.1 %; Hematocrit 27 % (42-52); Hemoglobin 8.8 g/dL (14.0-18.0); Lymphocyte % 19.9 %; Mean Corpuscular HGB Conc 32 g/dL (31-36); Mean Corpuscular Hemoglobin 28 pg (27-31); Mean Corpuscular Volume 88 fL (80-94); Mean Platelet Volume 6.6 fL (7.4-10.4); Platelet Count 331 10^3/uL (150-450); Red Blood Count 3.08 10^6 /uL (4.18-5.48); Red Cell Distribution Width 18 % (10-15); White Blood Count 13.1 10^3/uL (3.5-10.8)
[2021-06-22] MEDS: Multivitamins/Minerals TAB PO SCH (09:09)
[2021-06-22] MEDS: Senna TAB 8.6 mg TAB PO SCH ×2 (09:09→20:13)
[2021-06-22] MEDS: Heparin 5000 UNITS/ML 1 mL VIAL SUBCUT SCH ×2 (09:14→20:12)
[2021-06-22] MEDS: Polyethylene Glycol 3350 17 GM PACKET PO SCH ×2 (09:15→20:13)
[2021-06-22 09:20] LABS: ABS Basophils 0.1 10^3/ul (0-0.2); ABS Lymphocytes 2.1 10^3/ul (1.0-4.8); ABS Monocytes 0.8 10^3/ul (0-0.8); ABS Neutrophils 7.1 10^3/ul (1.5-7.7); Eosinophil % 0.3 %; Hematocrit 30 % (42-52); Hemoglobin 9.7 g/dL (14.0-18.0); Lymphocyte % 21.1 %; Mean Corpuscular HGB Conc 33 g/dL (31-36); Mean Corpuscular Hemoglobin 29 pg (27-31); Mean Corpuscular Volume 87 fL (80-94); Mean Platelet Volume 6.7 fL (7.4-10.4); Platelet Count 392 10^3/uL (150-450); Red Blood Count 3.41 10^6 /uL (4.18-5.48); Red Cell Distribution Width 18 % (10-15); White Blood Count 10.1 10^3/uL (3.5-10.8)
[2021-06-22] MEDS: Nystatin TOP POWDER 15 GM BTL TOPICAL SCH ×2 (12:04→20:13)
[2021-06-22] MEDS: cefTRIAXone 1 gm/50 mL NS BAG 1 GM/50 ML BAG IVPB SCH (12:25)
[2021-06-23] MEDS: Multivitamins/Minerals TAB PO SCH (08:21)
[2021-06-23] MEDS: Senna TAB 8.6 mg TAB PO SCH ×2 (08:21→20:53)
[2021-06-23] MEDS: Heparin 5000 UNITS/ML 1 mL VIAL SUBCUT SCH ×2 (08:43→20:59)
[2021-06-23] MEDS: Nystatin TOP POWDER 15 GM BTL TOPICAL SCH ×2 (08:43→20:59)
[2021-06-23] MEDS: Polyethylene Glycol 3350 17 GM PACKET PO SCH ×2 (12:18→20:45)
[2021-06-23] MEDS: cefTRIAXone 1 gm/50 mL NS BAG 1 GM/50 ML BAG IVPB SCH (12:40)
[2021-06-23 19:46] LABS: ABS Basophils 0.1 10^3/ul (0-0.2); ABS Eosinophils 0.1 10^3/ul (0-0.6); ABS Lymphocytes 2.1 10^3/ul (1.0-4.8); ABS Monocytes 1.4 10^3/ul (0-0.8); ABS Neutrophils 7.9 10^3/ul (1.5-7.7); Eosinophil % 0.7 %; Hematocrit 27 % (42-52); Hemoglobin 8.9 g/dL (14.0-18.0); Lymphocyte % 17.8 %; Mean Corpuscular HGB Conc 32 g/dL (31-36); Mean Corpuscular Hemoglobin 28 pg (27-31); Mean Corpuscular Volume 87 fL (80-94); Mean Platelet Volume 6.6 fL (7.4-10.4); Platelet Count 379 10^3/uL (150-450); Red Blood Count 3.17 10^6 /uL (4.18-5.48); Red Cell Distribution Width 18 % (10-15); White Blood Count 11.6 10^3/uL (3.5-10.8)
[2021-06-24] MEDS: Multivitamins/Minerals TAB PO SCH (08:38)
[2021-06-24] MEDS: Heparin 5000 UNITS/ML 1 mL VIAL SUBCUT SCH ×2 (08:39→21:19)
[2021-06-24] MEDS: Polyethylene Glycol 3350 17 GM PACKET PO SCH ×2 (08:39→21:19)
[2021-06-24] MEDS: Nystatin TOP POWDER 15 GM BTL TOPICAL SCH ×2 (08:39→21:20)
[2021-06-24] MEDS: Senna TAB 8.6 mg TAB PO SCH ×2 (08:40→21:18)
[2021-06-24] MEDS: cefTRIAXone 1 gm/50 mL NS BAG 1 GM/50 ML BAG IVPB SCH (14:00)
[2021-06-25] MEDS: Polyethylene Glycol 3350 17 GM PACKET PO SCH ×2 (08:32→19:51)
[2021-06-25] MEDS: Heparin 5000 UNITS/ML 1 mL VIAL SUBCUT SCH ×2 (08:33→19:50)
[2021-06-25] MEDS: Multivitamins/Minerals TAB PO SCH (08:35)
[2021-06-25] MEDS: Nystatin TOP POWDER 15 GM BTL TOPICAL SCH ×2 (08:36→19:48)
[2021-06-25] MEDS: Senna TAB 8.6 mg TAB PO SCH ×2 (08:37→19:42)
[2021-06-25] MEDS: cefTRIAXone 1 gm/50 mL NS BAG 1 GM/50 ML BAG IVPB SCH (13:32)
[2021-06-26 06:57] LABS: ABS Basophils 0.1 10^3/ul (0-0.2); ABS Eosinophils 0.1 10^3/ul (0-0.6); ABS Lymphocytes 1.7 10^3/ul (1.0-4.8); ABS Monocytes 1.2 10^3/ul (0-0.8); ABS Neutrophils 6.5 10^3/ul (1.5-7.7); Eosinophil % 0.7 %; Hematocrit 28 % (42-52); Hemoglobin 9.2 g/dL (14.0-18.0); Lymphocyte % 18.1 %; Mean Corpuscular HGB Conc 33 g/dL (31-36); Mean Corpuscular Hemoglobin 29 pg (27-31); Mean Corpuscular Volume 87 fL (80-94); Mean Platelet Volume 6.7 fL (7.4-10.4); Platelet Count 316 10^3/uL (150-450); Red Blood Count 3.16 10^6 /uL (4.18-5.48); Red Cell Distribution Width 18 % (10-15); White Blood Count 9.6 10^3/uL (3.5-10.8)
[2021-06-26] MEDS: Heparin 5000 UNITS/ML 1 mL VIAL SUBCUT SCH ×2 (08:58→21:52)
[2021-06-26] MEDS: Polyethylene Glycol 3350 17 GM PACKET PO SCH ×2 (08:59→21:54)
[2021-06-26] MEDS: Multivitamins/Minerals TAB PO SCH (08:59)
[2021-06-26] MEDS: Senna TAB 8.6 mg TAB PO SCH ×2 (08:59→21:55)
[2021-06-26] MEDS: Nystatin TOP POWDER 15 GM BTL TOPICAL SCH (10:33)
[2021-06-26] MEDS: cefTRIAXone 1 gm/50 mL NS BAG 1 GM/50 ML BAG IVPB SCH (15:28)
[2021-06-27] MEDS: Multivitamins/Minerals TAB PO SCH (08:51)
[2021-06-27] MEDS: Heparin 5000 UNITS/ML 1 mL VIAL SUBCUT SCH ×2 (08:53→21:51)
[2021-06-27] MEDS: Senna TAB 8.6 mg TAB PO SCH ×2 (08:54→21:54)
[2021-06-27] MEDS: Polyethylene Glycol 3350 17 GM PACKET PO SCH ×2 (08:54→21:55)
[2021-06-27] MEDS: Ondansetron ODT 4 mg TAB 4 MG TAB PO PRN (10:48)
[2021-06-27] MEDS: cefTRIAXone 1 gm/50 mL NS BAG 1 GM/50 ML BAG IVPB SCH (12:17)
[2021-06-28 05:52] LABS: ABS Basophils 0.1 10^3/ul (0-0.2); ABS Lymphocytes 2.3 10^3/ul (1.0-4.8); ABS Monocytes 1.1 10^3/ul (0-0.8); ABS Neutrophils 4.8 10^3/ul (1.5-7.7); Eosinophil % 0.3 %; Hematocrit 26 % (42-52); Hemoglobin 8.4 g/dL (14.0-18.0); Lymphocyte % 27.9 %; Mean Corpuscular HGB Conc 32 g/dL (31-36); Mean Corpuscular Hemoglobin 28 pg (27-31); Mean Corpuscular Volume 86 fL (80-94); Mean Platelet Volume 6.3 fL (7.4-10.4); Nucleated Red Blood Cells % 0.1; Platelet Count 360 10^3/uL (150-450); Red Blood Count 3.01 10^6 /uL (4.18-5.48); Red Cell Distribution Width 18 % (10-15); White Blood Count 8.3 10^3/uL (3.5-10.8)
[2021-06-28 06:27] LABS: Albumin 3.2 g/dL (3.2-5.2); Calcium 8.8 mg/dL (8.6-10.3); Globulin 3.3 g/dL (2-4); Potassium 4.4 mmol/L (3.5-5.0); Total Bilirubin 0.2 mg/dL (0.2-1.0); Total Protein 6.5 g/dL (6.4-8.9); eGFR CKD-EPI 103.7 (>60)
[2021-06-28] MEDS: Senna TAB 8.6 mg TAB PO SCH ×2 (08:47→21:19)
[2021-06-28] MEDS: Multivitamins/Minerals TAB PO SCH (08:48)
[2021-06-28] MEDS: Polyethylene Glycol 3350 17 GM PACKET PO SCH ×2 (08:53→21:20)
[2021-06-28] MEDS: Heparin 5000 UNITS/ML 1 mL VIAL SUBCUT SCH ×2 (08:56→21:20)
[2021-06-29] MEDS: Polyethylene Glycol 3350 17 GM PACKET PO SCH ×2 (11:23→21:29)
[2021-06-29] MEDS: Senna TAB 8.6 mg TAB PO SCH ×2 (11:23→20:59)
[2021-06-29] MEDS: Multivitamins/Minerals TAB PO SCH (11:25)
[2021-06-29] MEDS: Heparin 5000 UNITS/ML 1 mL VIAL SUBCUT SCH ×2 (11:25→20:59)
[2021-06-29] MEDS: Ondansetron ODT 4 mg TAB 4 MG TAB PO PRN (12:25)
[2021-06-30] MEDS: Heparin 5000 UNITS/ML 1 mL VIAL SUBCUT SCH ×2 (08:43→20:44)
[2021-06-30] MEDS: Senna TAB 8.6 mg TAB PO SCH ×2 (08:43→20:45)
[2021-06-30] MEDS: Multivitamins/Minerals TAB PO SCH (08:44)
[2021-06-30] MEDS: Polyethylene Glycol 3350 17 GM PACKET PO SCH ×2 (08:45→20:44)
[2021-06-30] MEDS: Ondansetron ODT 4 mg TAB 4 MG TAB PO PRN (17:13)
[2021-07-01] MEDS: Multivitamins/Minerals TAB PO SCH (08:49)
[2021-07-01] MEDS: Senna TAB 8.6 mg TAB PO SCH ×2 (08:49→20:54)
[2021-07-01] MEDS: Heparin 5000 UNITS/ML 1 mL VIAL SUBCUT SCH ×2 (08:54→20:53)
[2021-07-01] MEDS: Polyethylene Glycol 3350 17 GM PACKET PO SCH ×2 (08:54→20:54)
[2021-07-02] MEDS: Senna TAB 8.6 mg TAB PO SCH ×2 (09:05→20:15)
[2021-07-02] MEDS: Heparin 5000 UNITS/ML 1 mL VIAL SUBCUT SCH ×2 (09:06→20:15)
[2021-07-02] MEDS: Multivitamins/Minerals TAB PO SCH (09:06)
[2021-07-02] MEDS: Polyethylene Glycol 3350 17 GM PACKET PO SCH ×2 (09:07→20:17)
[2021-07-03] MEDS: Heparin 5000 UNITS/ML 1 mL VIAL SUBCUT SCH ×2 (09:22→20:14)
[2021-07-03] MEDS: Senna TAB 8.6 mg TAB PO SCH ×2 (09:22→20:15)
[2021-07-03] MEDS: Polyethylene Glycol 3350 17 GM PACKET PO SCH ×2 (09:22→20:16)
[2021-07-03] MEDS: Multivitamins/Minerals TAB PO SCH (09:23)
[2021-07-04] MEDS: Polyethylene Glycol 3350 17 GM PACKET PO SCH ×2 (08:02→21:08)
[2021-07-04] MEDS: Heparin 5000 UNITS/ML 1 mL VIAL SUBCUT SCH ×2 (09:55→21:05)
[2021-07-04] MEDS: Senna TAB 8.6 mg TAB PO SCH ×2 (09:57→21:05)
[2021-07-04] MEDS: Multivitamins/Minerals TAB PO SCH (09:57)
[2021-07-04] MEDS: Nystatin TOP POWDER 15 GM BTL TOPICAL SCH ×2 (09:57→21:03)
[2021-07-04] MEDS: Ondansetron ODT 4 mg TAB 4 MG TAB PO PRN (11:58)
[2021-07-05 05:57] LABS: ABS Basophils 0.1 10^3/ul (0-0.2); ABS Neutrophils 4.4 10^3/ul (1.5-7.7); Eosinophil % 0.2 %; Hematocrit 30 % (42-52); Hemoglobin 9.8 g/dL (14.0-18.0); Lymphocyte % 27.1 %; Mean Corpuscular HGB Conc 33 g/dL (31-36); Mean Corpuscular Hemoglobin 28 pg (27-31); Mean Corpuscular Volume 86 fL (80-94); Mean Platelet Volume 6.3 fL (7.4-10.4); Platelet Count 380 10^3/uL (150-450); Red Blood Count 3.49 10^6 /uL (4.18-5.48); Red Cell Distribution Width 18 % (10-15); White Blood Count 7.6 10^3/uL (3.5-10.8)
[2021-07-05 06:15] LABS: Albumin 3.4 g/dL (3.2-5.2); Globulin 3.3 g/dL (2-4); Potassium 4.3 mmol/L (3.5-5.0); Total Bilirubin 0.2 mg/dL (0.2-1.0); Total Protein 6.7 g/dL (6.4-8.9); eGFR CKD-EPI 106.6 (>60)
[2021-07-05] MEDS: Polyethylene Glycol 3350 17 GM PACKET PO SCH ×2 (08:38→21:10)
[2021-07-05] MEDS: Multivitamins/Minerals TAB PO SCH (10:07)
[2021-07-05] MEDS: Heparin 5000 UNITS/ML 1 mL VIAL SUBCUT SCH ×2 (10:12→21:17)
[2021-07-05] MEDS: Nystatin TOP POWDER 15 GM BTL TOPICAL SCH ×2 (10:12→21:22)
[2021-07-05] MEDS: Senna TAB 8.6 mg TAB PO SCH ×2 (10:12→21:13)
[2021-07-05 16:21] LABS: Lamotrigine 11.7 mcg/mL (2.5 - 15.0)
[2021-07-05] MEDS: Ondansetron ODT 4 mg TAB 4 MG TAB PO PRN (16:52)
[2021-07-06] MEDS: Ondansetron ODT 4 mg TAB 4 MG TAB PO PRN (08:36)
[2021-07-06] MEDS: Nystatin TOP POWDER 15 GM BTL TOPICAL SCH ×2 (08:50→21:02)
[2021-07-06] MEDS: Polyethylene Glycol 3350 17 GM PACKET PO SCH ×2 (09:12→20:53)
[2021-07-06] MEDS: Senna TAB 8.6 mg TAB PO SCH ×2 (09:13→20:53)
[2021-07-06] MEDS: Multivitamins/Minerals TAB PO SCH (09:13)
[2021-07-06] MEDS: Heparin 5000 UNITS/ML 1 mL VIAL SUBCUT SCH ×2 (09:13→21:03)
[2021-07-07 01:28] LABS: Lacosamide 8.6 mcg/mL (1.0 - 10.0)
[2021-07-07] MEDS: Multivitamins/Minerals TAB PO SCH (08:02)
[2021-07-07] MEDS: Polyethylene Glycol 3350 17 GM PACKET PO SCH ×2 (08:07→21:05)
[2021-07-07] MEDS: Senna TAB 8.6 mg TAB PO SCH ×2 (08:11→21:05)
[2021-07-07] MEDS: Heparin 5000 UNITS/ML 1 mL VIAL SUBCUT SCH ×2 (09:47→21:23)
[2021-07-07] MEDS: Ondansetron ODT 4 mg TAB 4 MG TAB PO PRN (11:45)
[2021-07-07] MEDS: Nystatin TOP POWDER 15 GM BTL TOPICAL SCH ×2 (13:12→21:25)
[2021-07-08] MEDS: Senna TAB 8.6 mg TAB PO SCH ×2 (07:32→20:02)
[2021-07-08] MEDS: Multivitamins/Minerals TAB PO SCH (07:32)
[2021-07-08] MEDS: Heparin 5000 UNITS/ML 1 mL VIAL SUBCUT SCH ×2 (07:33→20:05)
[2021-07-08] MEDS: Polyethylene Glycol 3350 17 GM PACKET PO SCH ×2 (07:33→20:07)
[2021-07-08] MEDS: Nystatin TOP POWDER 15 GM BTL TOPICAL SCH ×2 (07:45→21:42)
[2021-07-08] MEDS: Ondansetron ODT 4 mg TAB 4 MG TAB PO PRN (08:15)
[2021-07-09 04:16] VITALS: BP 132/90
[2021-07-09] MEDS: Polyethylene Glycol 3350 17 GM PACKET PO SCH (08:08)
[2021-07-09] MEDS: Heparin 5000 UNITS/ML 1 mL VIAL SUBCUT SCH (08:09)
[2021-07-09] MEDS: Nystatin TOP POWDER 15 GM BTL TOPICAL SCH (08:10)
[2021-07-09] MEDS: Senna TAB 8.6 mg TAB PO SCH (08:10)
[2021-07-09] MEDS: Multivitamins/Minerals TAB PO SCH (08:10)
== END 2021-07-09 12:15 | disposition home health service (06) | DRG 98 ==
LOC: PMRU 11:13
PROVIDERS: ADMIT Physical Medicine & Rehabilitation; ATTEND Physical Medicine & Rehabilitation

== ENCOUNTER 2021-07-28 12:07 | Inpatient (IN) ==
[2021-07-28 13:32] LABS: ABS Basophils 0.1 10^3/ul (0-0.2); ABS Lymphocytes 1.6 10^3/ul (1.0-4.8); ABS Monocytes 1.1 10^3/ul (0-0.8); ABS Neutrophils 6.3 10^3/ul (1.5-7.7); Eosinophil % 0.3 %; Hematocrit 34 % (42-52); Hemoglobin 11.3 g/dL (14.0-18.0); Lymphocyte % 17.8 %; Mean Corpuscular HGB Conc 34 g/dL (31-36); Mean Corpuscular Hemoglobin 29 pg (27-31); Mean Corpuscular Volume 85 fL (80-94); Mean Platelet Volume 6.2 fL (7.4-10.4); Nucleated Red Blood Cells % 0.1; Platelet Count 372 10^3/uL (150-450); Red Blood Count 3.95 10^6 /uL (4.18-5.48); Red Cell Distribution Width 16 % (10-15); White Blood Count 9.1 10^3/uL (3.5-10.8)
[2021-07-28 14:18] LABS: Urine Appearance Cloudy; Urine Bilirubin Negative (Negative); Urine Blood Negative (Negative); Urine Color Yellow; Urine Glucose Negative (Negative); Urine Ketones Negative (Negative); Urine Nitrite Negative (Negative); Urine Protein Negative (Negative); Urine Specific Gravity 1.015 (1.002-1.030); Urine Urobilinogen Negative (Negative)
[2021-07-28 14:20] LABS: Albumin 4.1 g/dL (3.2-5.2); Albumin/Globulin Ratio 1.6 (1-3); Calcium 9.6 mg/dL (8.6-10.3); Globulin 2.6 g/dL (2-4); Potassium 4.4 mmol/L (3.5-5.0); Total Bilirubin 0.3 mg/dL (0.2-1.0); Total Protein 6.7 g/dL (6.4-8.9); eGFR CKD-EPI 104.9 (>60)
[2021-07-28] MEDS ORDERED: Famotidine IV 10 MG/ML 2 ml VIAL (20 mg) IV SLOW PU ONE (17:08)
[2021-07-28] MEDS ORDERED: Ondansetron 4 mg VIAL 2 MG/ML 2 ml VIAL IV ONE (17:11)
[2021-07-28] MEDS ORDERED: Iohexol 300 (CONTRAST) 10 ML SDV IV ONE (17:52)
[2021-07-28] MEDS ORDERED: Ondansetron 4 mg VIAL 2 MG/ML 2 ml VIAL IV PRN (18:18)
[2021-07-28] MEDS ORDERED: Lactated Ringers 1000 ml BAG 1,000 ML IV SCH (19:00)
[2021-07-28 20:54] LABS: C Reactive Protein 7.26 mg/L (<8.01)
[2021-07-28] MEDS: Pantoprazole VIAL 40 MG VIAL IV SCH (21:33)
[2021-07-28 21:54] LABS: Urine Osmo 341 mOsm/kg (150-1150)
[2021-07-29 05:50] LABS: ABS Basophils 0.1 10^3/ul (0-0.2); ABS Lymphocytes 1.9 10^3/ul (1.0-4.8); ABS Monocytes 1.1 10^3/ul (0-0.8); ABS Neutrophils 4.6 10^3/ul (1.5-7.7); Eosinophil % 0.6 %; Hematocrit 35 % (42-52); Hemoglobin 11.7 g/dL (14.0-18.0); Lymphocyte % 24.6 %; Mean Corpuscular HGB Conc 33 g/dL (31-36); Mean Corpuscular Hemoglobin 29 pg (27-31); Mean Corpuscular Volume 86 fL (80-94); Mean Platelet Volume 6.3 fL (7.4-10.4); Platelet Count 367 10^3/uL (150-450); Red Blood Count 4.09 10^6 /uL (4.18-5.48); Red Cell Distribution Width 16 % (10-15); White Blood Count 7.7 10^3/uL (3.5-10.8)
[2021-07-29 06:20] LABS: Albumin 3.8 g/dL (3.2-5.2); Albumin/Globulin Ratio 1.4 (1-3); Globulin 2.8 g/dL (2-4); Potassium 4.4 mmol/L (3.5-5.0); Total Bilirubin 0.3 mg/dL (0.2-1.0); Total Protein 6.6 g/dL (6.4-8.9); eGFR CKD-EPI 106.1 (>60)
[2021-07-29] MEDS: NS 0.9% 1000 ml BAG 1,000 ML IV SCH ×2 (07:28→10:07)
[2021-07-29] MEDS: Pantoprazole VIAL 40 MG VIAL IV SCH ×2 (08:21→21:02)
[2021-07-29] MEDS: cefTRIAXone 1 gm/50 mL NS BAG 1 GM/50 ML BAG IVPB SCH (10:31)
[2021-07-29] MEDS ORDERED: Midazolam 10 mg/10 ml VIAL 1 mg/ml 10 ml VIAL (10 mg) ONE (13:13)
[2021-07-29] MEDS ORDERED: fentaNYL 100 mcg/2 ml 50 MCG/ML VIAL ONE (13:13)
[2021-07-29 15:07] LABS: TSH Ultra Thyroid Stim Horm 2.86 mcIU/mL (0.34-5.60)
[2021-07-29 18:46] LABS: Activated Partial Thrombo Time 73.1 seconds (26.0-38.0); INR 1.22 (0.86-1.15)
[2021-07-30 09:07] LABS: Activated Partial Thrombo Time 70.7 seconds (26.0-38.0); INR 1.2 (0.86-1.15)
[2021-07-30 09:39] LABS: Calcium 8.7 mg/dL (8.6-10.3); eGFR CKD-EPI 108.8 (>60)
[2021-07-30] MEDS: Pantoprazole VIAL 40 MG VIAL IV SCH ×2 (10:13→19:50)
[2021-07-30] MEDS: cefTRIAXone 1 gm/50 mL NS BAG 1 GM/50 ML BAG IVPB SCH (11:01)
[2021-07-30] MEDS: NS 0.9% 1000 ml BAG 1,000 ML IV SCH (11:03)
[2021-07-31] MEDS: Pantoprazole VIAL 40 MG VIAL IV SCH (10:17)
[2021-07-31] MEDS: cefTRIAXone 1 gm/50 mL NS BAG 1 GM/50 ML BAG IVPB SCH ×2 (10:17→11:20)
[2021-07-31 13:00] VITALS: BP 128/85
== END 2021-07-31 14:15 | disposition home or self-care (01) | DRG 32 ==
LOC: ED 12:07 → EDHOLD 12:07 → ED 16:06 → SUATTDRO 18:11 → MED 22:46
PROVIDERS: ADMIT Student in an Organized Health Care Education/Training Program; ATTEND Internal Medicine

== ENCOUNTER 2023-09-24 12:02 | Observation (INO) ==
[2023-09-24] MEDS: levETIRAcetam 1000MG IVPREMIX 1,000 MG/100 ML BAG IVPB ONE (12:55)
[2023-09-24] MEDS: Lactated Ringers 1000 ml BAG 1,000 ML IV ONE (13:53)
[2023-09-24 14:14] LABS: ABS Basophils 0.1 10^3/uL (0.0-0.1); ABS Lymphocytes 0.7 10^3/uL (1.0-4.8); ABS Monocytes 0.6 10^3/uL (0.0-1.1); ABS Neutrophils 9.4 10^3/uL (1.5-7.6); ABS Nucleated RBC 0.01 10^3/ul; Eosinophil % 0.3 %; Hematocrit 42.7 % (38-53); Hemoglobin 14.4 g/dL (13.2-16.3); Lymphocyte % 6.7 %; Mean Corpuscular Hemoglobin 31.3 pg (27-33); Mean Corpuscular Hgb Conc 33.7 g/dL (31-36); Mean Platelet Volume 7.1 fL (7.5-11.2); Nucleated Red Blood Cells % 0.1 %/100WBC (0.0-0.8); Platelet Count 232 10^3/uL (150-450); Red Blood Count 4.59 10^6/uL (4.06-5.63); Red Cell Distribution Width 12.4 % (12-17); White Blood Count 10.9 10^3/uL (3.6-10.2)
[2023-09-24 14:42] LABS: Urine Appearance Clear; Urine Bilirubin Negative (Negative); Urine Blood Negative (Negative); Urine Color Yellow; Urine Glucose Negative (Negative); Urine Ketones Negative (Negative); Urine Nitrite Negative (Negative); Urine Protein Trace (Negative); Urine Urobilinogen Negative (Negative); Urine pH 6.5 (5.0-8.0)
[2023-09-24 14:43] LABS: INR 1.13 (0.83-1.13)
[2023-09-24 14:55] LABS: Albumin 4.3 g/dL (3.2-5.2); Albumin/Globulin Ratio 1.9 (1-3); C Reactive Protein 6.59 mg/L (<8.01); Calcium 9.4 mg/dL (8.6-10.3); Creatinine, Serum 0.76 mg/dL (0.67-1.17); Globulin 2.3 g/dL (2-4); Magnesium 1.8 mg/dL (1.9-2.7); Potassium 4.6 mmol/L (3.5-5.0); Total Bilirubin 0.3 mg/dL (0.2-1.0); Total Protein 6.6 g/dL (6.4-8.9); eGFR CKD-EPI 104.8 (>60)
[2023-09-24] MEDS: Enoxaparin 40 MG/0.4 ML SYR SUBCUT SCH (22:03)
[2023-09-24] MEDS: Nystatin TOP POWDER 15 GM BTL TOPICAL SCH (23:07)
[2023-09-25 06:21] LABS: ABS Basophils 0.1 10^3/uL (0.0-0.1); ABS Eosinophils 0.2 10^3/uL (0.0-0.5); ABS Lymphocytes 2.4 10^3/uL (1.0-4.8); ABS Neutrophils 4.4 10^3/uL (1.5-7.6); ABS Nucleated RBC 0.01 10^3/ul; Eosinophil % 2.2 %; Hematocrit 39.8 % (38-53); Hemoglobin 13.5 g/dL (13.2-16.3); Lymphocyte % 29.8 %; Mean Corpuscular Hemoglobin 31.5 pg (27-33); Mean Corpuscular Volume 92.8 fL (80-97); Mean Platelet Volume 7.6 fL (7.5-11.2); Nucleated Red Blood Cells % 0.1 %/100WBC (0.0-0.8); Platelet Count 253 10^3/uL (150-450); Red Blood Count 4.29 10^6/uL (4.06-5.63); Red Cell Distribution Width 12.3 % (12-17)
[2023-09-25 06:59] LABS: Calcium 9.2 mg/dL (8.6-10.3); Creatinine, Serum 0.9 mg/dL (0.67-1.17); Magnesium 1.9 mg/dL (1.9-2.7); Potassium 4.8 mmol/L (3.5-5.0); eGFR CKD-EPI 99.6 (>60)
[2023-09-25 09:38] LABS: TSH Ultra Thyroid Stim Horm 2.49 mcIU/mL (0.34-5.60)
[2023-09-25 10:39] VITALS: BP 127/77
[2023-09-25 11:20] LABS: Urine Benzodiazepine Screen None Detected (None Detect); Urine Cannabinoids Screen None Detected (None Detect); Urine Opiates Screen None Detected (None Detect)
[2023-09-28 12:28] LABS: Lacosamide 9.1 mcg/mL (1.0 - 10.0)
[2023-09-28 13:48] LABS: Lamotrigine 11.4 mcg/mL (3.0-15.0)
== END 2023-09-25 13:50 ==
LOC: EDHOLD 12:02 → ED 12:02 → SUATTDRO 16:22 → EDHOLD 20:23 → MED 20:50
PROVIDERS: ADMIT Internal Medicine; ATTEND Student in an Organized Health Care Education/Training Program

== ENCOUNTER 2024-06-07 03:20 | Observation (INO) ==
[2024-06-07 04:36] LABS: Hematocrit 38.4 % (38-53); Hemoglobin 13.1 g/dL (13.2-16.3); Mean Corpuscular Hemoglobin 31.7 pg (27-33); Mean Corpuscular Hgb Conc 34.2 g/dL (31-36); Mean Corpuscular Volume 92.8 fL (80-97); Mean Platelet Volume 7.4 fL (7.5-11.2); Platelet Count 209 10^3/uL (150-450); Red Blood Count 4.13 10^6/uL (4.06-5.63); Red Cell Distribution Width 12.4 % (12-17); White Blood Count 38.1 10^3/uL (3.6-10.2)
[2024-06-07 04:43] LABS: INR 1.49 (0.85-1.14)
[2024-06-07 05:22] LABS: Urine Appearance Turbid; Urine Bilirubin Negative (Negative); Urine Blood 1+ (Negative); Urine Color Yellow; Urine Glucose Negative (Negative); Urine Ketones Negative (Negative); Urine Nitrite 2+ (Negative); Urine Protein 2+ (>=100 mg/dL) (Negative); Urine Specific Gravity 1.022 (1.002-1.030); Urine Urobilinogen Negative (Negative); Urine pH 6.5 (5.0-8.0)
[2024-06-07 05:27] LABS: Albumin 3.9 g/dL (3.5-5.7); Albumin/Globulin Ratio 1.7 (1-3); Calcium 9.4 mg/dL (8.6-10.3); Creatinine, Serum 0.96 mg/dL (0.67-1.17); Globulin 2.3 g/dL (2-4); Magnesium 1.9 mg/dL (1.9-2.7); Potassium 4.8 mmol/L (3.5-5.0); Total Bilirubin 0.8 mg/dL (0.2-1.0); Total Protein 6.2 g/dL (6.4-8.9); eGFR CKD-EPI 91.6 (>60)
[2024-06-07] MEDS: cefTRIAXone 1 gm/50 mL D5W 1 GM/50 ML BAG IV ONE (06:13)
[2024-06-07 06:15] LABS: ABS Basophils 0.2 10^3/uL (0.0-0.1); ABS Monocytes 2.8 10^3/uL (0.0-1.1); Eosinophil % 0.1 %; Lymphocyte % 2.7 %
[2024-06-07] MEDS ORDERED: Al Hydrox/Mg Hydrox/Simet LIQ 30 ML UDC PO PRN (06:38)
[2024-06-07] MEDS ORDERED: Miconazole TOPICAL CREAM 2% 30 GM TOPICAL PRN (06:38)
[2024-06-07] MEDS ORDERED: Polyethylene Glycol 3350 17 GM PACKET PO PRN (06:38)
[2024-06-07] MEDS ORDERED: Senna TAB 8.6 mg TAB PO PRN (06:38)
[2024-06-07 06:55] LABS: C Reactive Protein 239.83 mg/L (<8.01)
[2024-06-07] MEDS: Iohexol 350 (CONTRAST) 500 ML MDV IV ONE (07:03)
[2024-06-07] MEDS: Lactated Ringers 1000 ml BAG 1,000 ML IV SCH (07:13)
[2024-06-07] MEDS: Lactated Ringers 1000 ml BAG 1,000 ML IV ONE (07:13)
[2024-06-07 07:21] LABS: Urine Bacteria 3+ /HPF (Absent); Urine Red Blood Cell 3+(>10/hpf) /HPF (0-Trace); Urine White Blood Cell 3+(>20/hpf) /HPF (0-Trace)
[2024-06-07] MEDS: Polyethylene Glycol 3350 17 GM PACKET PO SCH (12:03)
[2024-06-07] MEDS: Magnesium Hydroxide LIQ 30 ML UDC PO SCH (12:05)
[2024-06-08] MEDS ORDERED: cefTRIAXone 1 gm/50 mL D5W 1 GM/50 ML BAG IV SCH (06:00)
[2024-06-08 06:18] LABS: Hematocrit 35.4 % (38-53); Hemoglobin 11.6 g/dL (13.2-16.3); Mean Corpuscular Hemoglobin 30.8 pg (27-33); Mean Corpuscular Hgb Conc 32.9 g/dL (31-36); Mean Corpuscular Volume 93.7 fL (80-97); Mean Platelet Volume 8.5 fL (7.5-11.2); Platelet Count 176 10^3/uL (150-450); Red Blood Count 3.78 10^6/uL (4.06-5.63); Red Cell Distribution Width 12.5 % (12-17); White Blood Count 25.1 10^3/uL (3.6-10.2)
[2024-06-08] MEDS: cefTRIAXone 1 gm/50 mL D5W 1 GM/50 ML BAG IV SCH (06:21)
[2024-06-08 06:28] LABS: ABS Basophils 0.1 10^3/uL (0.0-0.1); ABS Eosinophils 0.2 10^3/uL (0.0-0.5); ABS Lymphocytes 1.7 10^3/uL (1.0-4.8); ABS Monocytes 1.8 10^3/uL (0.0-1.1); ABS Neutrophils 21.3 10^3/uL (1.5-7.6); ABS Nucleated RBC 0.01 10^3/ul; Eosinophil % 0.9 %; Lymphocyte % 6.8 %
[2024-06-08 06:47] LABS: C Reactive Protein 259.78 mg/L (<8.01); Calcium 8.2 mg/dL (8.6-10.3); Creatinine, Serum 0.67 mg/dL (0.67-1.17); Potassium 4.4 mmol/L (3.5-5.0); eGFR CKD-EPI 108.2 (>60)
[2024-06-09 08:19] LABS: ABS Eosinophils 0.3 10^3/uL (0.0-0.5); ABS Lymphocytes 0.9 10^3/uL (1.0-4.8); ABS Monocytes 0.9 10^3/uL (0.0-1.1); Eosinophil % 2.8 %; Hematocrit 38.6 % (38-53); Lymphocyte % 9.5 %; Mean Corpuscular Hemoglobin 31.6 pg (27-33); Mean Corpuscular Hgb Conc 33.8 g/dL (31-36); Mean Corpuscular Volume 93.7 fL (80-97); Mean Platelet Volume 7.4 fL (7.5-11.2); Platelet Count 217 10^3/uL (150-450); Red Blood Count 4.12 10^6/uL (4.06-5.63); Red Cell Distribution Width 12.5 % (12-17); White Blood Count 9.1 10^3/uL (3.6-10.2)
[2024-06-09 08:48] LABS: Creatinine, Serum 0.65 mg/dL (0.67-1.17); Potassium 4.1 mmol/L (3.5-5.0); eGFR CKD-EPI 109.2 (>60)
[2024-06-09 09:24] VITALS: BP 112/71
== END 2024-06-09 11:33 | disposition home or self-care (01) ==
LOC: EDHOLD 03:20 → ED 03:20 → MED 08:52
PROVIDERS: ADMIT Student in an Organized Health Care Education/Training Program; ATTEND Hospitalist